=== PATIENT | male | born 1965 | race Caucasian/White ===

== ENCOUNTER 2016-03-10 | Emergency (ER) | payer OTHER ==
--- NOTE | 2016-03-10 16:10 | ED ---
Recheck HPI - General Chief Complaint: Medical Clearance Stated Complaint: med refill Time Seen by Provider: 03/10/16 15:57 Source: patient Mode of arrival: ambulatory Limitations: no limitations - History of Present Illness Initial Comments: Patient is a 50-year-old male, patient of Dr. Cabrera in the outpatient setting with medical history significant for anxiety and bipolar. Patient presents to the emergency department with complaints of anxiety and heart palpitations at times. 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 Patient states he didn't take any medications while incarcerated. Patient states he's supposed to see Dr. Cabrera next week but needs something for anxiety until he can get in. Patient denies recent fevers, chills, nausea, vomiting, shortness of breath, chest pain, or abdominal pain. Patient states he just gets very anxious and his heart starts beating. MD Complaint: medication refill request - Related Data Home Medications Medication Instructions Recorded Confirmed Hydrocodone/Acetaminophen [[place] 1 tab PO TID PRN 01/07/16 01/07/16 10-325] Trihexyphenidyl [Artane] 2 mg PO BID 01/07/16 01/07/16 Previous Rx's Medication Instructions Recorded Thiothixene [Navane] 2 mg PO BID #60 cap 11/19/13 ALPRAZolam [Xanax] 0.5 mg PO BID #7 tab 01/07/16 ALPRAZolam [Xanax] 0.5 mg PO BID PRN #12 tablet 03/10/16 Allergies Allergy/AdvReac Type Severity Reaction Status Date / Time haloperidol [From Haldol] Allergy Unknown Verified 03/10/16 15:56 haloperidol lactate Allergy Unknown Verified 03/10/16 15:56 [From Haldol] Review of Systems ROS Statement: Those systems with pertinent positive or pertinent negative responses have been documented in the HPI. ROS Other: All systems not noted in ROS Statement are negative. Past Medical History Past Medical History: Hypertension Additional Past Medical History / Comment(s): anxiety and bipolar disorder History of Any Multi-Drug Resistant Organisms: None Reported Past Surgical History: No Surgical Hx Reported Past Anesthesia/Blood Transfusion Reactions: No Reported Reaction Past Psychological History: Anxiety, Bipolar Smoking Status: Current every day smoker Past Alcohol Use History: Abuse, Daily Past Drug Use History: None Reported - Past Family History Mother Family Medical History: Myocardial Infarction ([place]) Additional Family Medical History / Comment(s): at age 54 Father History Unknown: Yes Family Medical History: Pneumonia General Exam Limitations: no limitations General appearance: alert, in no apparent distress Head exam: Present: atraumatic, normocephalic, normal inspection Eye exam: Present: normal appearance ENT exam: Present: normal exam, mucous membranes moist Neck exam: Present: normal inspection, full ROM. Absent: tenderness, meningismus, lymphadenopathy Respiratory exam: Present: normal lung sounds bilaterally. Absent: respiratory distress, wheezes, rales, rhonchi, stridor Cardiovascular Exam: Present: regular rate, tachycardia, normal heart sounds. Absent: systolic murmur, diastolic murmur, rubs, gallop, clicks GI/Abdominal exam: Present: soft, normal bowel sounds. Absent: distended, tenderness, guarding, rebound, rigid Extremities exam: Present: normal inspection Neurological exam: Present: alert, oriented X3, CN II-XII intact Psychiatric exam: Present: normal affect, normal mood Skin exam: Present: warm, dry, intact, normal color. Absent: rash Course Vital Signs 03/10/16 15:54 Temperature 97.8 F Pulse Rate 108 H Respiratory 20 Rate Blood Pressure 116/79 O2 Sat by Pulse 100 Oximetry Medical Decision Making - Medical Decision Making Patient is a 50-year-old male with established history of anxiety presenting for Xanax refill. Patient prescribed 12 pills of Xanax after reviewing case with Dr. Kebede. Instructed to follow-up with Dr. Cabrera next week. Discharge instructions and return parameters reviewed. Disposition Clinical Impression: Anxiety, Medication refill Disposition: HOME SELF-CARE Condition: Good Instructions: Anxiety (ED) Additional Instructions: Please follow-up with Dr. Cabrera next week for follow-up. Return to the emergency department if symptoms do not improve or get worse. Prescriptions: ALPRAZolam [Xanax] 0.5 mg PO BID PRN #12 tablet PRN Reason: Anxiety Referrals: Alonzo Cabrera MD [Primary Care Provider] - 1-2 days Time of Disposition: 16:12
== END 2016-03-10 16:25 | disposition home or self-care (01) ==
CPT/HCPCS: 99281

== ENCOUNTER 2016-03-16 | Emergency (ER) | payer OTHER ==
--- NOTE | 2016-03-16 13:30 | ED ---
Recheck HPI - General Chief Complaint: Recheck/Abnormal Lab/Rx Stated Complaint: med refill Time Seen by Provider: 03/16/16 13:14 Source: patient, EMS, RN notes reviewed Mode of arrival: EMS Limitations: no limitations - History of Present Illness Initial Comments: Patient is a 50-year-old male presenting to the [facility] stating that he needs a refill of his high blood pressure and bipolar medications. Patient reports that he has been taking lisinopril 20 mg in the morning for the past 5+ years. Patient also reports that he has been taking [place] Vis[place] for his bipolar diagnosis for the past 30 years. Patient reports that he recently was out of [facility] and has not been able to take his medications for the past 6 days. Patient does state that he receives refills of these medications by Dr. ace. Patient reports that he is currently working on receiving his ID in order to be able to see Dr. Cabrera again. Patient states that being off of a antipsychotic medication he has had increased racing thoughts. He denies any suicidal or homicidal ideations. Patient also reports that he does hear voices. Patient states that he does see a psychiatrist as well.Patient denies any recent fever, chills, shortness of breath, chest pain, back pain, abdominal pain, nausea vomiting, numbness or tingling, dysuria or hematuria, constipation or diarrhea, headaches or visual changes, or any other current symptoms - Related Data Home Medications Medication Instructions Recorded Confirmed Hydrocodone/Acetaminophen [[place] 1 tab PO TID PRN 01/07/16 03/16/16 10-325] Trihexyphenidyl [Artane] 2 mg PO BID 01/07/16 03/16/16 Lisinopril [Zestril] 20 mg PO DAILY 03/16/16 03/16/16 Previous Rx's Medication Instructions Recorded Thiothixene [Navane] 2 mg PO BID #60 cap 11/19/13 ALPRAZolam [Xanax] 0.5 mg PO BID #7 tab 01/07/16 ALPRAZolam [Xanax] 0.5 mg PO BID PRN #12 tablet 03/10/16 Lisinopril [Zestril] 20 mg PO DAILY #20 tab 03/16/16 Thiothixene [Navane] 2 mg PO BID #20 capsule 03/16/16 Allergies Allergy/AdvReac Type Severity Reaction Status Date / Time haloperidol [From Haldol] Allergy Unknown Verified 03/16/16 13:16 haloperidol lactate Allergy Unknown Verified 03/16/16 13:16 [From Haldol] Review of Systems ROS Statement: Those systems with pertinent positive or pertinent negative responses have been documented in the HPI. ROS Other: All systems not noted in ROS Statement are negative. Past Medical History Past Medical History: Hypertension Additional Past Medical History / Comment(s): anxiety and bipolar disorder History of Any Multi-Drug Resistant Organisms: None Reported Past Surgical History: No Surgical Hx Reported Past Anesthesia/Blood Transfusion Reactions: No Reported Reaction Past Psychological History: Anxiety, Bipolar Smoking Status: Current every day smoker Past Alcohol Use History: Abuse, Daily Past Drug Use History: None Reported - Past Family History Mother Family Medical History: Myocardial Infarction ([place]) Additional Family Medical History / Comment(s): at age 54 Father History Unknown: Yes Family Medical History: Pneumonia General Exam - General Exam Comments Initial Comments: Patient is a pleasant 50-year-old male. He does not appear to be in any acute distress. Limitations: no limitations General appearance: alert, in no apparent distress Head exam: Present: atraumatic, normocephalic, normal inspection Eye exam: Present: normal appearance, PERRL, EOMI. Absent: scleral icterus, conjunctival injection, periorbital swelling ENT exam: Present: normal exam, mucous membranes moist Neck exam: Present: normal inspection. Absent: tenderness, meningismus, lymphadenopathy Respiratory exam: Present: normal lung sounds bilaterally Cardiovascular Exam: Present: regular rate, normal rhythm, normal heart sounds. Absent: systolic murmur, diastolic murmur, rubs, gallop, clicks GI/Abdominal exam: Present: soft, normal bowel sounds. Absent: distended, tenderness, guarding, rebound, rigid Extremities exam: Present: normal inspection, full ROM, normal capillary refill. Absent: tenderness, pedal edema, joint swelling, calf tenderness Back exam: Present: normal inspection Neurological exam: Present: alert, oriented X3, CN II-XII intact Psychiatric exam: Present: normal affect, normal mood, other (She denies any suicidal or homicidal ideations. Patient does report that he out his bipolar medication he does have some recent thoughts.) Skin exam: Present: warm, dry, intact, normal color. Absent: rash Course Vital Signs 03/16/16 03/16/16 13:06 13:20 Temperature 98.0 F Pulse Rate 98 Pulse Rate [ 98 Right Radial] Respiratory 20 Rate Blood Pressure 151/95 O2 Sat by Pulse 97 Oximetry Medical Decision Making - Medical Decision Making Patient is a 50-year-old male with a chief complaint of needing a medication refill for his hypertension and bipolar medications. Patient reports that he takes lisinopril 20 mg once a day as well as taking thiothixene 2 mg twice a day. Patient proceed as received these medications from his primary care Dr. Dr. Cabrera. He states he recently got out of [facility] and he has not been able take his meds for the past 6 days. He states he's noted his blood pressure has been elevated and without his bipolar medications he's had racing thoughts. Patient denies any suicidal or homicidal ideations. Patient will be given a short prescription for thiothixene and lisinopril.. Patient has been advised to follow up with primary care soon as possible. Patient understands treatment plan will comply. Return parameters were discussed. Disposition Clinical Impression: Medication refill, Hypertension, Schizoaffective disorder Disposition: HOME SELF-CARE Condition: Good Instructions: Medicine Refill (ED) Additional Instructions: Patient instructed to follow up with primary care provider in 1-2 weeks. any alarming signs or symptoms occur. Prescriptions: Lisinopril [Zestril] 20 mg PO DAILY #20 tab Thiothixene [Navane] 2 mg PO BID #20 capsule Referrals: Alonzo Cabrera MD [Primary Care Provider] - 1-2 days Time of Disposition: 13:29
== END 2016-03-16 13:32 | disposition home or self-care (01) ==
CPT/HCPCS: 99282

== ENCOUNTER 2016-04-03 09:42 | Emergency (ER) | payer OTHER ==
[2016-04-03 09:47] VITALS: BP 136/88; PULSE 99; RESP 18; TEMP 98.2
--- NOTE | 2016-04-03 10:06 | ED ---
General Adult HPI - General Chief complaint: Recheck/Abnormal Lab/Rx Stated complaint: Med refill Time Seen by Provider: 04/03/16 09:57 Source: patient, RN notes reviewed Mode of arrival: ambulatory Limitations: no limitations - History of Present Illness Initial comments: Patient is a 50-year-old male who presents emergency room today with chief complaint of needing medication refill. He states is been 2 days that is been out of his medications. He states is out of his thiothixene, lisinopril, Xanax. States she's tried to follow this family doctor. He states he lost his photo ID. He states he has a temporary deep does not have a photo his family doctor will not see him until he has a photo ID. Patient states it will take 2 weeks for photo ID to come in. He states been 2 days since about his medications. He denies any other complaints or associated symptoms. Patient denies any recent fever, chills, shortness of breath, chest pain, back pain, abdominal pain, nausea or vomiting, numbness or tingling, dysuria or hematuria, constipation or diarrhea, headaches or visual changes, or any other complaints. - Related Data Previous Rx's Medication Instructions Recorded Thiothixene [Navane] 2 mg PO BID #20 capsule 03/16/16 ALPRAZolam [Xanax] 0.5 mg PO TID PRN #30 tab 04/03/16 Lisinopril [Zestril] 20 mg PO DAILY #30 tab 04/03/16 Thiothixene [Navane] 2 mg PO BID #25 capsule 04/03/16 Allergies Allergy/AdvReac Type Severity Reaction Status Date / Time haloperidol [From Haldol] Allergy Unknown Verified 04/03/16 09:53 haloperidol lactate Allergy Unknown Verified 04/03/16 09:53 [From Haldol] Review of Systems ROS Statement: Those systems with pertinent positive or pertinent negative responses have been documented in the HPI. ROS Other: All systems not noted in ROS Statement are negative. Past Medical History Past Medical History: Hypertension Additional Past Medical History / Comment(s): anxiety and bipolar disorder History of Any Multi-Drug Resistant Organisms: None Reported Past Surgical History: No Surgical Hx Reported Past Anesthesia/Blood Transfusion Reactions: No Reported Reaction Past Psychological History: Anxiety, Bipolar Smoking Status: Current every day smoker Past Alcohol Use History: Abuse, Daily Past Drug Use History: None Reported - Past Family History Mother Family Medical History: Myocardial Infarction ([place]) Additional Family Medical History / Comment(s): at age 54 Father History Unknown: Yes Family Medical History: Pneumonia General Exam - General Exam Comments Initial Comments: General: The patient is awake and alert, in no distress, and does not appear acutely ill. Eye: Pupils are equal, round and reactive to light, extra-ocular movements are intact. No nystagmus. There is normal conjunctiva bilaterally. No signs of icterus. Ears, nose, mouth and throat: There are moist mucous membranes and no oral lesions. Neck: The neck is supple, there is no tenderness or JVD. Cardiovascular: There is a regular rate and rhythm. No murmur, rub or gallop is appreciated. Respiratory: Lungs are clear to auscultation, respirations are non-labored, breath sounds are equal. No wheezes, stridor, rales, or rhonchi. Musculoskeletal: Normal ROM, no tenderness. Strength 5/5. Sensation intact. Pulses equal bilaterally 2+. Neurological: A&O x 3. CN II-XII intact, There are no obvious motor or sensory deficits. Coordination appears grossly intact. Speech is normal. Skin: Skin is warm and dry and no rashes or lesions are noted. Psychiatric: Cooperative, appropriate mood & affect, normal judgment. Limitations: no limitations Course Vital Signs 04/03/16 09:44 Temperature 98.2 F Pulse Rate 99 Respiratory 18 Rate Blood Pressure 136/88 O2 Sat by Pulse 99 Oximetry Medical Decision Making - Medical Decision Making Patient will be given a short prescription for Xanax. He'll be given prescription for his thiothixene and lisinopril to cover for the next 2 weeks until he is able to follow-up with his family doctor. Disposition Clinical Impression: Medication refill Disposition: HOME SELF-CARE Condition: Good Instructions: Medicine Refill (ED) Additional Instructions: Please medications as prescribed and follow-up family doctor for further meds as discussed. Please return to emergency room if the symptoms increase or worsen or for any other concerns. Prescriptions: ALPRAZolam [Xanax] 0.5 mg PO TID PRN #30 tab PRN Reason: Anxiety Lisinopril [Zestril] 20 mg PO DAILY #30 tab Thiothixene [Navane] 2 mg PO BID #25 capsule Time of Disposition: 10:03
== END 2016-04-03 10:14 | disposition home or self-care (01) ==
LOC: EC 09:42
DX: Z76.0 Encounter for issue of repeat prescription (principal); Z79.899 Other long term (current) drug therapy; Z88.8 Allergy status to other drugs, medicaments and biological substances; I10 Essential (primary) hypertension; F31.9 Bipolar disorder, unspecified; F41.9 Anxiety disorder, unspecified; F17.200 Nicotine dependence, unspecified, uncomplicated
CPT/HCPCS: 99281

== ENCOUNTER 2016-04-27 09:43 | Emergency (ER) | payer OTHER ==
[2016-04-27 09:48] VITALS: BP 122/71; PULSE 102; RESP 20; TEMP 97.5
--- NOTE | 2016-04-27 10:20 | ED ---
General Adult HPI - General Chief complaint: Medical Clearance Stated complaint: med refill Time Seen by Provider: 04/27/16 09:50 Source: patient, RN notes reviewed Mode of arrival: ambulatory Limitations: no limitations - History of Present Illness Initial comments: 50-year-old male presents emergency department for medication refill. Patient has been out of his medications for a couple days. Patient states he has no appointment in [address] Cabrera. Patient states she's been on all his medications for several years. Patient denies any seizures. Patient denies a suicidal or homicidal thoughts. Patient offers no other complaints. - Related Data Previous Rx's Medication Instructions Recorded Thiothixene [Navane] 2 mg PO BID #20 capsule 03/16/16 ALPRAZolam [Xanax] 0.5 mg PO TID PRN #30 tab 04/03/16 Lisinopril [Zestril] 20 mg PO DAILY #30 tab 04/03/16 Thiothixene [Navane] 2 mg PO BID #25 capsule 04/03/16 ALPRAZolam [Xanax] 0.5 mg PO TID PRN #30 tablet 04/27/16 Lisinopril [Zestril] 20 mg PO DAILY #10 tab 04/27/16 Thiothixene [Navane] 2 mg PO BID #20 capsule 04/27/16 Allergies Allergy/AdvReac Type Severity Reaction Status Date / Time haloperidol [From Haldol] Allergy Unknown Verified 04/27/16 09:48 haloperidol lactate Allergy Unknown Verified 04/27/16 09:48 [From Haldol] Review of Systems ROS Statement: Those systems with pertinent positive or pertinent negative responses have been documented in the HPI. ROS Other: All systems not noted in ROS Statement are negative. Past Medical History Past Medical History: Hypertension Additional Past Medical History / Comment(s): anxiety and bipolar disorder History of Any Multi-Drug Resistant Organisms: None Reported Past Surgical History: No Surgical Hx Reported Past Anesthesia/Blood Transfusion Reactions: No Reported Reaction Past Psychological History: Anxiety, Bipolar Smoking Status: Current every day smoker Past Alcohol Use History: Abuse, Daily Past Drug Use History: None Reported - Past Family History Mother Family Medical History: Myocardial Infarction ([place]) Additional Family Medical History / Comment(s): at age 54 Father History Unknown: Yes Family Medical History: Pneumonia General Exam Limitations: no limitations General appearance: alert, in no apparent distress Head exam: Present: atraumatic, normocephalic, normal inspection Eye exam: Present: normal appearance, PERRL, EOMI. Absent: scleral icterus, conjunctival injection, periorbital swelling ENT exam: Present: normal exam, normal oropharynx, mucous membranes moist, TM's normal bilaterally Neck exam: Present: normal inspection. Absent: tenderness, meningismus, lymphadenopathy Respiratory exam: Present: normal lung sounds bilaterally. Absent: respiratory distress, wheezes, rales, rhonchi, stridor Cardiovascular Exam: Present: regular rate, normal rhythm, normal heart sounds. Absent: systolic murmur, diastolic murmur, rubs, gallop, clicks Psychiatric exam: Present: normal affect, normal mood. Absent: depressed Course Vital Signs 04/27/16 09:46 Temperature 97.5 F L Pulse Rate 102 H Respiratory 20 Rate Blood Pressure 122/71 O2 Sat by Pulse 99 Oximetry Disposition Clinical Impression: Medication refill, Anxiety, Bipolar 1 disorder Disposition: HOME SELF-CARE Condition: Stable Instructions: Anxiety (ED) Additional Instructions: Please return to the Emergency Department if symptoms worsen or any other concerns. Prescriptions: ALPRAZolam [Xanax] 0.5 mg PO TID PRN #30 tablet PRN Reason: Anxiety Lisinopril [Zestril] 20 mg PO DAILY #10 tab Thiothixene [Navane] 2 mg PO BID #20 capsule Time of Disposition: 10:20
== END 2016-04-27 10:26 | disposition home or self-care (01) ==
LOC: EC 09:43
DX: Z76.0 Encounter for issue of repeat prescription (principal); F41.9 Anxiety disorder, unspecified; F31.9 Bipolar disorder, unspecified; I10 Essential (primary) hypertension; F17.200 Nicotine dependence, unspecified, uncomplicated; Z79.899 Other long term (current) drug therapy; Z88.8 Allergy status to other drugs, medicaments and biological substances
CPT/HCPCS: 99281

== ENCOUNTER 2016-08-26 13:05 | Emergency (ER) | payer OTHER ==
[2016-08-26 13:12] VITALS: RESP 20
--- NOTE | 2016-08-26 14:49 | ED ---
ENT HPI - General Chief complaint: ENT Stated complaint: sore throat Time Seen by Provider: 08/26/16 14:27 Source: patient Mode of arrival: EMS Limitations: no limitations - History of Present Illness Initial comments: Patient is a 51-year-old male, patient of Dr. Cabrera in the outpatient setting, with a medical history significant for COPD, hypertension, chronic pain syndrome, anxiety, current nicotine dependence, and alcohol abuse. Patient presents to the emergency department with complaints of throat pain for 5 days. Patient states he is also out of his hydrocodone and Xanax. MD complaint: sore throat, difficulty swallowing (Patient states it hurts to swallow) Onset/Timin -: days(s) Severity: moderate Severity scale (1-10): 6 Quality: aching Consistency: constant Improves with: none Worsens with: swallowing Associated Symptoms: cough (Chronic), pain with swallowing, rhinorrhea - Related Data Home Medications Medication Instructions Recorded Confirmed HYDROcodone/APAP 10-325MG [[place] 1 tab PO Q6H PRN 08/26/16 08/26/16 10-325] Trihexyphenidyl [Artane] 2 mg PO BID 08/26/16 08/26/16 Previous Rx's Medication Instructions Recorded RX: Thiothixene [Navane] 2 mg PO BID #20 capsule 03/16/16 Lisinopril [Zestril] 20 mg PO DAILY #30 tab 04/03/16 RX: ALPRAZolam [Xanax] 0.5 mg PO TID PRN #30 tab 04/03/16 Allergies Allergy/AdvReac Type Severity Reaction Status Date / Time haloperidol [From Haldol] Allergy Unknown Verified 08/26/16 13:51 haloperidol lactate Allergy Unknown Verified 08/26/16 13:51 [From Haldol] Review of Systems ROS Statement: Those systems with pertinent positive or pertinent negative responses have been documented in the HPI. ROS Other: All systems not noted in ROS Statement are negative. Past Medical History Past Medical History: Hypertension Additional Past Medical History / Comment(s): anxiety and bipolar disorder History of Any Multi-Drug Resistant Organisms: None Reported Past Surgical History: No Surgical Hx Reported Past Anesthesia/Blood Transfusion Reactions: No Reported Reaction Past Psychological History: Anxiety, Bipolar Smoking Status: Current every day smoker Past Alcohol Use History: Abuse, Daily Past Drug Use History: None Reported - Past Family History Mother Family Medical History: Myocardial Infarction ([place]) Additional Family Medical History / Comment(s): at age 54 Father History Unknown: Yes Family Medical History: Pneumonia General Exam - General Exam Comments Initial Comments: Pharyngitis suspect viral. Strep screen negative. Patient educated on conservative measures. Patient instructed to follow-up with primary care physician for med refill. Patient agrees to treatment plan. Discharge instructions and return parameters reviewed. Limitations: no limitations General appearance: alert, in no apparent distress Head exam: Present: atraumatic, normocephalic, normal inspection Eye exam: Present: normal appearance, PERRL, EOMI. Absent: scleral icterus, conjunctival injection, nystagmus, periorbital swelling, periorbital tenderness ENT exam: Present: normal exam, mucous membranes moist, TM's normal bilaterally , normal external ear exam Expanded Mouth exam: Present: normal external inspection, tongue normal. Absent: drooling, trismus Throat exam: normal inspection, other (Minimal erythema to posterior pharynx). negative: tonsillar erythema, tonsillomegaly, tonsillar exudate, R peritonsillar mass, L peritonsillar mass Neck exam: Present: normal inspection, tenderness, full ROM, lymphadenopathy Respiratory exam: Present: normal lung sounds bilaterally. Absent: respiratory distress, wheezes, rales, rhonchi, stridor Cardiovascular Exam: Present: regular rate, tachycardia, normal heart sounds. Absent: systolic murmur, diastolic murmur, rubs, gallop, clicks GI/Abdominal exam: Present: soft, normal bowel sounds. Absent: distended Extremities exam: Present: normal inspection, full ROM, normal capillary refill. Absent: tenderness, pedal edema, joint swelling, calf tenderness Neurological exam: Present: alert, oriented X3, normal gait, other (No focal deficits noted) Psychiatric exam: Present: normal affect, normal mood Skin exam: Present: warm, dry, intact, normal color Course Vital Signs 08/26/16 13:10 Temperature 97.9 F Pulse Rate 105 H Respiratory 20 Rate Blood Pressure 142/86 O2 Sat by Pulse 100 Oximetry Medical Decision Making - Lab Data Lab Results 08/26/16 Range/Units 14:40 Group A Strep Rapid Negative (Negative) Disposition Clinical Impression: Pharyngitis Disposition: HOME SELF-CARE Condition: Good Instructions: Pharyngitis (ED) Additional Instructions: Continue soft and cold foods. Continue Tylenol or Motrin for pain. Continue throat lozenges and salt water gargles. Follow-up with primary care physician next 24-48 hours. Please return to the emergency department with any new or worsening symptoms. Referrals: Alonzo Cabrera MD [Primary Care Provider] - 1-2 days Time of Disposition: 15:33
[2016-08-26 15:48] VITALS: BP 148/68; PULSE 97; TEMP 98
== END 2016-08-26 15:46 | disposition home or self-care (01) ==
LOC: EC 13:05
DX: J02.9 Acute pharyngitis, unspecified (principal); F17.200 Nicotine dependence, unspecified, uncomplicated; Z88.8 Allergy status to other drugs, medicaments and biological substances; Z79.899 Other long term (current) drug therapy
CPT/HCPCS: 87081; 87430; 99283

== ENCOUNTER 2016-09-12 16:03 | Emergency (ER) | payer MEDICAID, OTHER ==
[2016-09-12 16:16] VITALS: BP 134/97; PULSE 119; RESP 18; TEMP 98.5
[2016-09-12] MEDS ORDERED: THIOTHIXENE 1 MG CAP PO STA (16:54)
--- NOTE | 2016-09-12 16:59 | ED ---
General Adult HPI - General Chief complaint: Psychiatric Symptoms Stated complaint: Mental Health Time Seen by Provider: 09/12/16 16:09 Source: patient, EMS, RN notes reviewed, old records reviewed Mode of arrival: EMS Limitations: no limitations - History of Present Illness Initial comments: Chief complaint history of present illness a 51-year-old male history of bipolar disorder. States he lost is not vein requesting 20 tablets 1 twice a day until his refills become available in 10 days. - Related Data Home Medications Medication Instructions Recorded Confirmed HYDROcodone/APAP 10-325MG [[place] 1 tab PO Q6H PRN 08/26/16 08/26/16 10-325] Trihexyphenidyl [Artane] 2 mg PO BID 08/26/16 08/26/16 Previous Rx's Medication Instructions Recorded Thiothixene [Navane] 2 mg PO BID #20 capsule 03/16/16 ALPRAZolam [Xanax] 0.5 mg PO TID PRN #30 tab 04/03/16 Lisinopril [Zestril] 20 mg PO DAILY #30 tab 04/03/16 Thiothixene [Navane] 2 mg PO BID #20 capsule 09/12/16 Allergies Allergy/AdvReac Type Severity Reaction Status Date / Time haloperidol [From Haldol] Allergy Unknown Verified 08/26/16 13:51 Review of Systems ROS Statement: Those systems with pertinent positive or pertinent negative responses have been documented in the HPI. No other complaints. Not suicidal and not homicidal. The patient does admit to drinking alcohol no other complaints. Past medical problems bipolar disorder. ALLERGIES Haldol. ROS Other: All systems not noted in ROS Statement are negative. Past Medical History Past Medical History: Hyperlipidemia, Hypertension Additional Past Medical History / Comment(s): anxiety and bipolar disorder History of Any Multi-Drug Resistant Organisms: None Reported Past Surgical History: No Surgical Hx Reported Past Anesthesia/Blood Transfusion Reactions: No Reported Reaction Past Psychological History: Anxiety, Bipolar Smoking Status: Current every day smoker Past Alcohol Use History: Abuse, Daily Past Drug Use History: None Reported - Past Family History Mother Family Medical History: Myocardial Infarction ([place]) Additional Family Medical History / Comment(s): at age 54 Father History Unknown: Yes Family Medical History: Pneumonia General Exam - General Exam Comments Initial Comments: Patient's vital signs are temperature 98.5 pulse 119 respiratory rate 18 pulse ox 134/87, /95% room air. has no complaints only requesting a temporary refill of his not vein 2 mg twice a day. Patient denying any aches pains fever, no psychological issues or problems denies suicidal thoughts. Limitations: no limitations Course Vital Signs 09/12/16 16:13 Temperature 98.5 F Pulse Rate 119 H Respiratory 18 Rate Blood Pressure 134/97 O2 Sat by Pulse 94 L Oximetry Disposition Clinical Impression: Encounter for medication refill Disposition: HOME SELF-CARE Condition: Fair Instructions: Bipolar Disorder (ED) Additional Instructions: Take medications as directed. Stop smoking stop drinking alcohol. Follow-up with family physician. Prescriptions: Thiothixene [Navane] 2 mg PO BID #20 capsule Referrals: Alonzo Cabrera MD [Primary Care Provider] - 1-2 days Time of Disposition: 16:58
== END 2016-09-12 18:49 | disposition home or self-care (01) ==
LOC: EC 16:03
DX: Z76.0 Encounter for issue of repeat prescription (principal); F31.9 Bipolar disorder, unspecified; F41.9 Anxiety disorder, unspecified; F17.200 Nicotine dependence, unspecified, uncomplicated; Z79.899 Other long term (current) drug therapy; Z88.8 Allergy status to other drugs, medicaments and biological substances
CPT/HCPCS: 82075; 99284

== ENCOUNTER 2016-10-08 14:20 | Emergency (ER) | payer OTHER ==
[2016-10-08 14:36] VITALS: RESP 18
--- NOTE | 2016-10-08 14:42 | ED ---
Fall HPI - General Stated Complaint: Fall Time Seen by Provider: 10/08/16 14:22 Source: patient, EMS Mode of arrival: EMS Limitations: no limitations - History of Present Illness Initial Comments: 51-year-old male presents emergency department via EMS chief complaints alcohol intoxication, facial injury. Bystanders did see the patient fall several times and his face on the concrete. He states he was staggering significantly before and after the injury. Patient states his tetanus is up-to-date approximately 3 years ago. Patient states he has no headache no neck pain. The c-collar. Patient denies any complaints of arm pain, leg pain or any back pain. Patient states he did drink alcohol today but reports that he does not drink alcohol regular basis. We have a history of chronic alcohol abuse here. Patient states he has no dental injury doesn't attempt blood in his mouth unsure why. - Related Data Home Medications Medication Instructions Recorded Confirmed HYDROcodone/APAP 10-325MG [[place] 1 tab PO Q6H PRN 08/26/16 10/08/16 10-325] Trihexyphenidyl [Artane] 2 mg PO BID 08/26/16 10/08/16 Atorvastatin Calcium [Lipitor] 40 mg PO DAILY 10/08/16 10/08/16 Cholecalciferol [Vitamin D3] 1,000 unit PO DAILY 10/08/16 10/08/16 Previous Rx's Medication Instructions Recorded Thiothixene [Navane] 2 mg PO BID #20 capsule 03/16/16 ALPRAZolam [Xanax] 0.5 mg PO TID PRN #30 tab 04/03/16 Lisinopril [Zestril] 20 mg PO DAILY #30 tab 04/03/16 Allergies Allergy/AdvReac Type Severity Reaction Status Date / Time haloperidol [From Haldol] Allergy Unknown Verified 10/08/16 14:43 Review of Systems ROS Statement: Those systems with pertinent positive or pertinent negative responses have been documented in the HPI. ROS Other: All systems not noted in ROS Statement are negative. Past Medical History Past Medical History: Hyperlipidemia, Hypertension Additional Past Medical History / Comment(s): anxiety and bipolar disorder History of Any Multi-Drug Resistant Organisms: None Reported Past Surgical History: No Surgical Hx Reported Past Anesthesia/Blood Transfusion Reactions: No Reported Reaction Past Psychological History: Anxiety, Bipolar, Schizophrenia Smoking Status: Current every day smoker Past Alcohol Use History: Abuse, Daily Past Drug Use History: None Reported - Past Family History Mother Family Medical History: Myocardial Infarction ([place]) Additional Family Medical History / Comment(s): at age 54 Father History Unknown: Yes Family Medical History: Pneumonia General Exam Limitations: no limitations General appearance: alert, in no apparent distress Head exam: Present: atraumatic, normocephalic, normal inspection Eye exam: Present: normal appearance, PERRL, EOMI, periorbital swelling ( Moderate right with multiple abrasions), periorbital tenderness (Mild right- sided). Absent: scleral icterus, conjunctival injection Pupils: Present: normal accommodation ENT exam: Present: normal exam, normal oropharynx, mucous membranes moist, TM's normal bilaterally, normal external ear exam Neck exam: Present: normal inspection, full ROM. Absent: tenderness, meningismus, lymphadenopathy Respiratory exam: Present: normal lung sounds bilaterally. Absent: respiratory distress, wheezes, rales, rhonchi, stridor, chest wall tenderness Cardiovascular Exam: Present: normal rhythm, tachycardia, normal heart sounds. Absent: systolic murmur, diastolic murmur, rubs, gallop, clicks GI/Abdominal exam: Present: soft, normal bowel sounds. Absent: distended, tenderness, guarding, rebound, rigid Extremities exam: Present: other (Right shoulder is a large abrasion noted with some ecchymosis patient is minimally tender and has full range of motion remaining right upper extremity within normal limits, left and lower extremity no abrasions or range of motion nontender) Back exam: Present: full ROM. Absent: tenderness, muscle spasm, paraspinal tenderness, vertebral tenderness Neurological exam: Present: alert, oriented X3, CN II-XII intact, reflexes normal. Absent: motor sensory deficit Skin exam: Present: warm, dry, intact, normal color, abrasion (Multiple abrasions noted on the face and the right periorbital region, upper lip, left cheek). Absent: rash Course Vital Signs 10/08/16 14:24 Temperature 98.4 F Pulse Rate 115 H Respiratory 18 Rate Blood Pressure 129/81 O2 Sat by Pulse 97 Oximetry Medical Decision Making - Medical Decision Making 51-year-old male presents emergency department for fall, facial injury and alcohol intoxication. Patient CT of his facial bones, brain and cervical spine do not reveal any acute fractures or intracranial bleed. Patient states for x- ray does not show any fractures. Patient will be picked up by family this time and discharged with there care. Disposition Clinical Impression: Alcohol intoxication, Fall, Multiple abrasions, Facial hematoma, Head injury Disposition: HOME SELF-CARE Condition: Stable Instructions: Head Injury (ED), Abrasion (ED) Additional Instructions: Please return to the Emergency Department if symptoms worsen or any other concerns. Referrals: Alonzo Cabrera MD [Primary Care Provider] - 1-2 days Time of Disposition: 15:35
--- NOTE | 2016-10-08 15:01 | XR ---
EXAMINATION TYPE: XR shoulder complete RT DATE OF EXAM: 10/08/2016 COMPARISON: NONE HISTORY: Pain TECHNIQUE: Three views are submitted. FINDINGS: The osseous structures are intact. There is no acute fracture or dislocation. The AC joint is narro wed secondary to arthropathy. IMPRESSION: 1. No acute process.
--- NOTE | 2016-10-08 15:19 | CT ---
EXAMINATION TYPE: CT facial bones wo con DATE OF EXAM: 10/08/2016 COMPARISON: CT facial bones dated 12/30/2013. CT brain and C-spine dated 11/08/2015. HISTORY: Fall CT DLP: 607.87 mGycm Automated exposure control for dose reduction was used. TECHNIQUE: CT scan of the sinuses is performed without contrast, axial images are obtained, coronal r eformatted images are also reviewed. FINDINGS: Premaxillary soft tissue swelling is seen on the left at the level of the maxillary spine. The maxillary spine is intact, slightly deviated rightward but similar to the prior exam which may be result of prior injury. The nasal septum is deviated to the left with a nasal bone spur. Nasal septu m and nasal bone are also intact. Left frontal scalp hematoma measures 6.1 mm in thickness. The paranasal sinuses including the frontal , ethmoid, sphenoid, and maxillary sinuses bilaterally are well-aerated without abnormal opacificatio n. The ostiomeatal complex is patent bilaterally on the coronal images. Mandibular condyles are loca tamiko within the mandibular fossa. Visualized portion of mastoid air cells show no abnormal opacification. The globes are intact bilate rally. There is no evidence of lens dislocation. IMPRESSION: 1. No evidence of acute facial bone fracture. 2. Premaxillary soft tissue swelling on the left. 3. Left frontal scalp hematoma measuring 6.1 mm in thickness.
--- NOTE | 2016-10-08 15:20 | CT ---
EXAMINATION TYPE: CT brain cspine wo con DATE OF EXAM: 10/08/2016 COMPARISON: Previous exam 11/08/2015 HISTORY: Fall CT DLP: 1755.30 mGycm Automated exposure control for dose reduction was used. TECHNIQUE: CT scan of the head and cervical spine are performed without contrast. FINDINGS: There is no acute intracranial hemorrhage, mass effect, or midline shift identified. The ventricles and sulci are within normal limits in size. Left frontal cephalohematoma is present, the re is ecchymosis or edema present about the lateral orbit bilaterally corresponding to patient's inju ry. The globes are intact and the visualized sinuses are clear. I question some periventricular deep white matter low-attenuation as on previous exam. Cervical spine is visualized in its entirety from C1 through upper thoracic levels and demonstrates s atisfactory alignment without evidence of acute fracture or dislocation. Prevertebral soft tissue ap pears within normal limits. Lung apices show emphysematous change as on prior exam The C1-C2 articul ation is unremarkable. Multilevel foraminal encroachment again noted. IMPRESSION: 1. There is no acute fracture or dislocation evident in the cervical spine. Exam is stable. 2. No acute intracranial hemorrhage, mass effect, or midline shift is seen. Soft tissue injuries.
[2016-10-08 15:41] VITALS: BP 117/80; PULSE 112; TEMP 98
== END 2016-10-08 16:11 | disposition home or self-care (01) ==
LOC: EC 14:20
DX: S40.011A Contusion of right shoulder, initial encounter (principal); S00.211A Abrasion of right eyelid and periocular area, initial encounter; S00.511A Abrasion of lip, initial encounter; S00.81XA Abrasion of other part of head, initial encounter; F10.229 Alcohol dependence with intoxication, unspecified; E78.5 Hyperlipidemia, unspecified; I10 Essential (primary) hypertension; F17.200 Nicotine dependence, unspecified, uncomplicated; Z88.8 Allergy status to other drugs, medicaments and biological substances; Z79.899 Other long term (current) drug therapy; W01.198A Fall on same level from slipping, tripping and stumbling with subsequent striking against other object, initial encounter; Y93.01 Activity, walking, marching and hiking; Y92.89 Other specified places as the place of occurrence of the external cause
CPT/HCPCS: 70450; 70486; 72125; 82075; 99284

== ENCOUNTER 2017-07-24 11:19 | Emergency (ER) | payer OTHER ==
[2017-07-24 11:25] VITALS: BP 133/83; PULSE 120; RESP 18; TEMP 97.1
[2017-07-24] MEDS ORDERED: THIOTHIXENE 1 MG CAP PO STA (11:34)
--- NOTE | 2017-07-24 11:40 | ED ---
General Adult HPI - General Chief complaint: Recheck/Abnormal Lab/Rx Stated complaint: Rash Time Seen by Provider: 07/24/17 11:20 Source: patient, RN notes reviewed Mode of arrival: ambulatory Limitations: no limitations - History of Present Illness Initial comments: This is a 52-year-old male who states he has been out of his thiothixene for 6 days and he would like one dose today because he can get his prescription filled tomorrow and pick it up. Patient also is here because he has a rash on his legs and arms and a little bit on his abdomen which is extremely itchy and he states he's had this ever since he left [facility]. Patient has excoriated all areas that itch source difficult to make out what the initial rash was. Patient denies any fever chills. Patient denies any area of pain. Patient denies any erythematous areas. Patient denies any fevers. - Related Data Home Medications Medication Instructions Recorded Confirmed HYDROcodone/APAP 10-325MG [[place] 1 tab PO Q6H PRN 08/26/16 10/08/16 10-325] Trihexyphenidyl [Artane] 2 mg PO BID 08/26/16 10/08/16 Atorvastatin Calcium [Lipitor] 40 mg PO DAILY 10/08/16 10/08/16 Cholecalciferol [Vitamin D3] 1,000 unit PO DAILY 10/08/16 10/08/16 Previous Rx's Medication Instructions Recorded Thiothixene [Navane] 2 mg PO BID #20 capsule 03/16/16 ALPRAZolam [Xanax] 0.5 mg PO TID PRN #30 tab 04/03/16 Lisinopril [Zestril] 20 mg PO DAILY #30 tab 04/03/16 Permethrin 5% Cream [Elimite] 1 applic TOPICAL ONCE 1 Days 07/24/17 cream..g. predniSONE 40 mg PO DAILY #8 tab 07/24/17 Allergies Allergy/AdvReac Type Severity Reaction Status Date / Time haloperidol [From Haldol] Allergy Unknown Verified 07/24/17 11:25 Review of Systems ROS Statement: Those systems with pertinent positive or pertinent negative responses have been documented in the HPI. ROS Other: All systems not noted in ROS Statement are negative. Past Medical History Past Medical History: Hyperlipidemia, Hypertension Additional Past Medical History / Comment(s): anxiety and bipolar disorder History of Any Multi-Drug Resistant Organisms: None Reported Past Surgical History: No Surgical Hx Reported Past Anesthesia/Blood Transfusion Reactions: No Reported Reaction Past Psychological History: Anxiety, Bipolar, Schizophrenia Smoking Status: Current every day smoker Past Alcohol Use History: Abuse, Daily Past Drug Use History: None Reported - Past Family History Mother Family Medical History: Myocardial Infarction ([place]) Additional Family Medical History / Comment(s): at age 54 Father History Unknown: Yes Family Medical History: Pneumonia General Exam - General Exam Comments Initial Comments: GENERAL: Patient is well-developed and well-nourished. Patient is nontoxic and well- hydrated and is in mild distress. ENT: Neck is soft and supple. No significant lymphadenopathy is noted. Oropharynx is clear. Moist mucous membranes. Neck has full range of motion without eliciting any pain. EYES: The sclera were anicteric and conjunctiva were pink and moist. Extraocular movements were intact and pupils were equal round and reactive to light. Eyelids were unremarkable. PULMONARY: Unlabored respirations. Good breath sounds bilaterally. No audible rales rhonchi or wheezing was noted. CARDIOVASCULAR: There is a regular rate and rhythm without any murmurs gallops or rubs. Femoral pulses are equal bilaterally SKIN: Patient has multiple excoriated lesions on his legs and forearms and posterior aspect of his hands so it is difficult to tell what the rash initially look like. Patient states is extremely itchy NEUROLOGIC: Patient is alert and oriented x3. Cranial nerves II through XII are grossly intact. Motor and sensory are also intact. Normal speech, volume and content. Symmetrical smile. MUSCULOSKELETAL: Normal extremities with adequate strength and full range of motion. No lower extremity swelling or edema. No calf tenderness. LYMPHATICS: No significant lymphadenopathy is noted PSYCHIATRIC: Normal psychiatric evaluation. Limitations: no limitations Course Vital Signs 07/24/17 11:21 Temperature 97.1 F L Pulse Rate 120 H Respiratory 18 Rate Blood Pressure 133/83 O2 Sat by Pulse 98 Oximetry Disposition Clinical Impression: Medication administered, Scabies Disposition: HOME SELF-CARE Condition: Good Instructions: Scabies (ED) Prescriptions: Permethrin 5% Cream [Elimite] 1 applic TOPICAL ONCE 1 Days cream..g. predniSONE 40 mg PO DAILY #8 tab Is patient prescribed a controlled substance at d/c from ED?: No Referrals: Alonzo Cabrera MD [Primary Care Provider] - 1-2 days Time of Disposition: 11:38
== END 2017-07-24 12:09 | disposition home or self-care (01) ==
LOC: EC 11:19
DX: B86 Scabies (principal); E78.5 Hyperlipidemia, unspecified; I10 Essential (primary) hypertension; F17.200 Nicotine dependence, unspecified, uncomplicated; Z79.899 Other long term (current) drug therapy; Z88.8 Allergy status to other drugs, medicaments and biological substances
CPT/HCPCS: 99282

== ENCOUNTER 2020-05-18 17:38 | Emergency (ER) | payer OTHER ==
[2020-05-18 17:53] VITALS: BP 139/97; PULSE 108; RESP 18; TEMP 98.5
--- NOTE | 2020-05-18 19:27 | ED ---
General Adult HPI - General Chief complaint: Nausea/Vomiting/Diarrhea Stated complaint: SOB Time Seen by Provider: 05/18/20 18:00 Source: EMS Mode of arrival: EMS Limitations: no limitations - History of Present Illness Initial comments: 54-year-old male presenting today for chief complaint of shortness of breath loss of taste mild body aches concerned for Covid 19 infection. Patient states that he has had loss of taste and smell shortness of breath as well as cough for the past 3 days. Patient states he knows he has Covid 19 he states he has not t ested positive yet however. Patient denies any sharp chest pain with deep inspiration or leg swelling. He states it feels tight when he takes a deep breath. Patient states when he lies flat he has increased cough. Patient denies hemoptysis. He admits to chills but denies recording fevers. Patient denies abdominal pain, admit to nausea, occasional vomiting. No additional complaints. Pt afebrile but HR elevated on arrival he does not appear in distress. nor is he hypoxic. - Related Data Home Medications Medication Instructions Recorded Confirmed Atorvastatin Calcium [Lipitor] 40 mg PO DAILY 10/08/16 05/18/20 Ergocalciferol (Vitamin D2) 50,000 unit PO Q28D 01/31/18 05/18/20 [Drisdol] ALPRAZolam [Xanax] 1 mg PO BID PRN 05/18/20 05/18/20 Aspirin EC [Ecotrin Low Dose] 81 mg PO DAILY 05/18/20 05/18/20 HYDROcodone/APAP 5-325MG [[place] 1 tab PO TID PRN 05/18/20 05/18/20 5-325] Trihexyphenidyl [Artane] 2 mg PO BID 05/18/20 05/18/20 Previous Rx's Medication Instructions Recorded Thiothixene [Navane] 2 mg PO BID #20 capsule 03/16/16 lisinopriL [Zestril] 20 mg PO DAILY #30 tab 04/03/16 Allergies Allergy/AdvReac Type Severity Reaction Status Date / Time haloperidol [From Haldol] Allergy Unknown Verified 05/18/20 19:24 Review of Systems ROS Statement: Those systems with pertinent positive or pertinent negative responses have been documented in the HPI. ROS Other: All systems not noted in ROS Statement are negative. Past Medical History Past Medical History: Hyperlipidemia, Hypertension Additional Past Medical History / Comment(s): anxiety and bipolar disorder History of Any Multi-Drug Resistant Organisms: None Reported Past Surgical History: No Surgical Hx Reported Past Anesthesia/Blood Transfusion Reactions: No Reported Reaction Past Psychological History: Anxiety, Bipolar, Schizophrenia Smoking Status: Current every day smoker Past Alcohol Use History: Abuse, Daily, Heavy Past Drug Use History: None Reported - Past Family History Mother Family Medical History: Myocardial Infarction ([place]) Additional Family Medical History / Comment(s): at age 54 Father History Unknown: Yes Family Medical History: Pneumonia General Exam - General Exam Comments Initial Comments: General: The patient is awake and alert, in no distress Eye: +3 mm pupils are equal, round and reactive to light, extra-ocular movements are intact. No nystagmus. There is normal conjunctiva bilaterally. No signs of icterus. Ears, nose, mouth and throat: There are moist mucous membranes and no oral lesions. Neck: The neck is supple, there is no tenderness or JVD. Cardiovascular: There is a regular rate and rhythm. No murmur, rub or gallop is appreciated. Respiratory: Lungs are clear to auscultation, respirations are non-labored, breath sounds are equal. No wheezes, stridor, rales, or rhonchi. Gastrointestinal: Soft, non-distended, non-tender abdomen without masses or organomegaly noted. There is no rebound or guarding present. Musculoskeletal: Normal ROM, no tenderness. Strength 5/5. Sensation intact. Radial pulses equal bilaterally 2+. Neurological: A&O x 3. CN II-XII intact grossly, There are no obvious motor or sensory deficits. Coordination appears grossly intact. Speech is normal. Skin: Skin is warm and dry and no rashes or lesions are noted. Psychiatric: Cooperative, appropriate mood & affect, normal judgment. Limitations: no limitations Course Vital Signs 05/18/20 17:51 Temperature 98.5 F Pulse Rate 108 H Respiratory 18 Rate Blood Pressure 139/97 O2 Sat by Pulse 100 Oximetry Medical Decision Making - Medical Decision Making Refused work up and left states he felt better after "whatever EMS gave me" he states he just wanted to go home.Discussed risks including disability , [place], stroke, pulmonary embolism, pneumonia, sepsis. patient states "i feel fine and just wanna go". Pt appears of sound mind, he verbalized understanding and is able to recite risks back to me. Patient signed AMA forms in presence of nurse Gloria and left without taking his discharge paperwork. Disposition Clinical Impression: Dyspnea, Left against medical advice Disposition: Left Against Medical Advice Condition: Undetermined Instructions (If sedation given, give patient instructions): Coronavirus Disease 2019 (COVID-19) Is patient prescribed a controlled substance at d/c from ED?: No Referrals: Alonzo Cabrera MD [Primary Care Provider] - 1-2 days Time of Disposition: 19:27
== END 2020-05-18 19:10 | disposition left against medical advice (07) ==
LOC: EC 17:38
DX: R06.00 Dyspnea, unspecified (principal); E78.5 Hyperlipidemia, unspecified; I10 Essential (primary) hypertension; F20.9 Schizophrenia, unspecified; F17.200 Nicotine dependence, unspecified, uncomplicated; Z53.29 Procedure and treatment not carried out because of patient's decision for other reasons
CPT/HCPCS: 99283

== ENCOUNTER 2020-11-17 16:38 | Observation (INO) | payer OTHER ==
--- NOTE | 2020-11-17 18:01 | ED ---
General Adult HPI - General Chief complaint: Alcohol Stated complaint: ETOH Time Seen by Provider: 11/17/20 16:40 Source: patient Mode of arrival: EMS Limitations: no limitations - History of Present Illness Initial comments: Dictation was produced using [employer] dictation software. please excuse any grammatical, word or spelling errors. Chief Complaint: 55-year-old male presents emergency department for occult intoxication. History of Present Illness: Patient is a 55-year-old male he is a poor historian. Patient was brought here by police for alcohol intoxication. Patient states he fell down today. Police noticed he had an abrasion to his anterior forehead. Patient states he fell down. Patient has any pain. He states he had several alcoholic beverages today. He states he takes every day. The ROS documented in this emergency department record has been reviewed and confirmed by me. Those systems with pertinent positive or negative responses have been documented in the HPI. All other systems are other negative and/or noncontributory. PHYSICAL EXAM: General Impression: Alert and oriented x3, not in acute distress, inebriated HEENT: Abrasion to the anterior forehead, extra-ocular movements intact, pupils equal and reactive to light bilaterally, mucous membranes moist. Cardiovascular: Heart regular rate and rhythm Chest: Able to complete full sentences, no retractions, no tachypnea Abdomen: abdomen soft, non-tender, non-distended, no organomegaly Musculoskeletal: Pulses present and equal in all extremities, no peripheral edema Motor: no focal deficits noted Neurological: CN II-XII grossly intact, no focal motor or sensory deficits noted Skin: Intact with no visualized rashes Psych: Normal affect and mood ED course: 55-year-old male presents emergency department for alcohol intoxication. Vital signs upon arrival are within acceptable limits Return evaluation obtained. CBC and coag panel within acceptable limits. Nonstress leukocytosis. Metabolic panel shows mild gap acidosis. Alcohol is 35 8. Likely alcoholic ketoacidosis. Computed tomography scan of the head and C- spine shows no acute processes. Patient be admitted for EtOH intoxication. Case discussed with Dr. Cabrera who is willing to accept patient care. EKG interpretation: Ventricular rate 106, sinus tachycardia,. Interval 182, QRS 90, QTC 483. No IL prolongation, no QTC prolongation, no ST or T-wave changes noted. EKG compared to 11/08/2015 showing no changes. Overall, this EKG is unremarkable - Related Data Home Medications Medication Instructions Recorded Confirmed Atorvastatin Calcium [Lipitor] 40 mg PO DAILY 10/08/16 11/17/20 Ergocalciferol (Vitamin D2) 50,000 unit PO Q14D 01/31/18 11/17/20 [Drisdol] ALPRAZolam [Xanax] 1 mg PO BID PRN 05/18/20 11/17/20 Aspirin EC [Ecotrin Low Dose] 81 mg PO DAILY 05/18/20 11/17/20 HYDROcodone/APAP 5-325MG [[place] 1 tab PO TID PRN 05/18/20 11/17/20 5-325] Trihexyphenidyl [Artane] 2 mg PO BID 05/18/20 11/17/20 Albuterol Inhaler [Ventolin Hfa 1 - 2 puff INHALATION RT-QID PRN 11/17/20 11/17/20 Inhaler] Fluticasone Nasal [place] [Flonase 1 spr EA NOSTRIL DAILY PRN 11/17/20 11/17/20 Nasal [place]] Naloxone HCl [Narcan] 4 mg NASAL ONCE PRN 11/17/20 11/17/20 Previous Rx's Medication Instructions Recorded Thiothixene [Navane] 2 mg PO BID #20 capsule 03/16/16 lisinopriL [Zestril] 20 mg PO DAILY #30 tab 04/03/16 Allergies Allergy/AdvReac Type Severity Reaction Status Date / Time haloperidol [From Haldol] Allergy Unknown Verified 11/17/20 18:26 Review of Systems ROS Statement: Those systems with pertinent positive or pertinent negative responses have been documented in the HPI. ROS Other: All systems not noted in ROS Statement are negative. Past Medical History Past Medical History: Hyperlipidemia, Hypertension Additional Past Medical History / Comment(s): anxiety and bipolar disorder History of Any Multi-Drug Resistant Organisms: None Reported Past Surgical History: No Surgical Hx Reported Past Anesthesia/Blood Transfusion Reactions: No Reported Reaction Past Psychological History: Anxiety, Bipolar, Schizophrenia Smoking Status: Current every day smoker Past Alcohol Use History: Abuse, Daily, Heavy Past Drug Use History: None Reported - Past Family History Mother Family Medical History: Myocardial Infarction ([place]) Additional Family Medical History / Comment(s): at age 54 Father History Unknown: Yes Family Medical History: Pneumonia General Exam Limitations: no limitations Course Vital Signs 11/17/20 11/17/20 11/17/20 16:43 18:45 20:23 Temperature 98.6 F Pulse Rate 102 H Respiratory 19 17 18 Rate Blood Pressure 126/82 O2 Sat by Pulse 96 Oximetry Medical Decision Making - Lab Data Result diagrams: 11/17/20 19:23 11/17/20 19:23 Lab Results 11/17/20 11/17/20 11/17/20 Range/Units 19:23 19:23 19:23 WBC 13.9 H (3.8-10.6) k/uL RBC 4.34 (4.30-5.90) m/uL Hgb 14.2 (13.0-17.5) gm/dL Hct 40.5 (39.0-53.0) % MCV 93.4 (80.0-100.0) fL MCH 32.7 (25.0-35.0) pg MCHC 35.0 (31.0-37.0) g/dL RDW 12.0 (11.5-15.5) % Plt Count 278 (150-450) k/uL MPV 7.9 Neutrophils % 62 % Lymphocytes % 30 % Monocytes % 6 % Eosinophils % 1 % Basophils % 1 % Neutrophils # 8.6 H (1.3-7.7) k/uL Lymphocytes # 4.2 (1.0-4.8) k/uL Monocytes # 0.8 (0-1.0) k/uL Eosinophils # 0.1 (0-0.7) k/uL Basophils # 0.1 (0-0.2) k/uL PT 9.7 (9.0-12.0) sec INR 0.9 (<1.2) APTT 22.1 (22.0-30.0) sec Sodium 133 L (137-145) mmol/L Potassium 4.2 (3.5-5.1) mmol/L Chloride 97 L (98-107) mmol/L Carbon Dioxide 19 L (22-30) mmol/L Anion Gap 17 mmol/L BUN 10 (9-20) mg/dL Creatinine 0.53 L (0.66-1.25) mg/dL Est GFR (CKD-EPI)AfAm >90 (>60 ml/min/1.73 sqM) Est GFR (CKD-EPI)NonAf >90 (>60 ml/min/1.73 sqM) Glucose 111 H (74-99) mg/dL Calcium 8.7 (8.4-10.2) mg/dL Serum Alcohol 358 H* mg/dL Disposition Clinical Impression: Alcohol intoxication Disposition: ADMITTED IP TO THIS HOSP Condition: Fair Referrals: Alonzo Cabrera MD [Primary Care Provider] - 1-2 days
[2020-11-17 19:28] LABS: Basophils # (A) 0.1 k/uL (0-0.2); Basophils % (A) 1 %; Eosinophils # (A) 0.1 k/uL (0-0.7); Eosinophils % (A) 1 %; HCT 40.5 % (39.0-53.0); HGB 14.2 gm/dL (13.0-17.5); Lymphocytes # (A) 4.2 k/uL (1.0-4.8); Lymphocytes % (A) 30 %; MCH 32.7 pg (25.0-35.0); MCV 93.4 fL (80.0-100.0); Mean Platelet Volume 7.9; Monocytes # (A) 0.8 k/uL (0-1.0); Monocytes % (A) 6 %; Neutrophils # (A) 8.6 k/uL (1.3-7.7); Neutrophils % (A) 62 %; Platelet Count 278 k/uL (150-450); RBC 4.34 m/uL (4.30-5.90); WBC 13.9 k/uL (3.8-10.6)
[2020-11-17 19:40] LABS: African American GFR (CKD) >90 (>60 ml/min/1.73 sqM); Anion Gap 17 mmol/L; Blood Urea Nitrogen 10 mg/dL (9-20); Calcium 8.7 mg/dL (8.4-10.2); Carbon Dioxide 19 mmol/L (22-30); Chloride 97 mmol/L (98-107); Glucose 111 mg/dL (74-99); Non-African American GFR(CKD) >90 (>60 ml/min/1.73 sqM); Potassium 4.2 mmol/L (3.5-5.1); Sodium 133 mmol/L (137-145)
[2020-11-17 19:49] LABS: INR 0.9 (<1.2); Partial Thromboplastin Time 22.1 sec (22.0-30.0); Prothrombin Time 9.7 sec (9.0-12.0)
[2020-11-17 19:59] LABS: Alcohol 358 mg/dL
--- NOTE | 2020-11-17 20:38 | CT ---
EXAMINATION TYPE: CT brain lillyine wo con DATE OF EXAM: 11/17/2020 COMPARISON: 01/31/2018 HISTORY: etoh, fall, pain CT DLP: 1322.8 mGycm Automated exposure control for dose reduction was used. TECHNIQUE: CT scan of the head and cervical spine are performed without contrast. FINDINGS: There is no acute intracranial hemorrhage, mass effect, or midline shift identified. The v entricles and sulci are within normal limits in size. The globes are intact and the visualized sinus es are clear. Cervical spine is visualized in its entirety from C1 through upper thoracic levels and demonstrates s atisfactory alignment without evidence of acute fracture or dislocation. Prevertebral soft tissue ap pears within normal limits. The C1-C2 articulation is unremarkable. IMPRESSION: 1. There is no acute fracture or dislocation evident in the cervical spine. 2. No acute intracranial hemorrhage, mass effect, or midline shift is seen.
[2020-11-17] MEDS ORDERED: NALOXONE 0.4 MG/ML 1 ML VIAL IV PRN (20:46)
[2020-11-17] MEDS ORDERED: THIAMINE 100 MG/ML 2 ML VIAL IM STA (20:47)
[2020-11-17] MEDS ORDERED: LORazepam 2 MG/ML INJ IV PRN ×3 (20:47)
[2020-11-18] MEDS: THIAMINE 100 MG TAB PO SCH ×2 (07:19→16:54)
[2020-11-18] MEDS ORDERED: ALBUTEROL NEBULIZED 2.5 MG/3 ML INHALATION PRN (17:11)
--- NOTE | 2020-11-18 19:37 | HP ---
HISTORY AND PHYSICAL CHIEF COMPLAINT: Acute alcohol intoxication. HISTORY OF PRESENT ILLNESS: This is another admission for this 55-year-old white male who drinks heavily and smokes very heavily. He also has a history of hypertension, hyperlipidemia and COPD. He was brought to the emergency room intoxicated and was admitted. He also has a history of schizophrenia. REVIEW OF SYSTEMS: Unobtainable. He does not know why he is in the hospital or how he got here. Past medical history, family history, and personal and social histories demonstrate he is ALLERGIC TO HALDOL. He is on atorvastatin 40 once a day, fluticasone nasal spray, Proventil HFA, Vicodin p.r.n., 81 mg of aspirin, Xanax 1 mg twice a day, 2 mg twice a day, trihexyphenidyl 2 mg twice a day, vitamin D and lisinopril 20 mg once a day. He continues to smoke heavily. PHYSICAL EXAMINATION: Blood pressure is 136/88 with a pulse of 96. He is afebrile. In general he appeared to be somewhat disheveled. He is awake and alert and oriented. Head, ears, eyes, nose, mouth and throat were normal. Neck veins were not distended. Chest was clear to auscultation and percussion. Cardiac exam was normal. Abdomen was soft and nontender. Extremities were normal. He was not in DTs at this time. The patient is admitted to the hospital with the diagnoses: 1. Acute alcohol intoxication. 2. Chronic obstructive pulmonary disease. 3. Hypertension. 4. Schizophrenia. PLAN: 1. Bedrest. 2. IV fluids. 3. CIWA protocol. MMODL / IJN: [id number] /
[2020-11-18] MEDS: TRIHEXYPHENIDYL 2 MG TAB PO SCH (19:51)
[2020-11-18] MEDS: lisinopriL 20 MG TAB PO SCH (19:51)
[2020-11-18] MEDS: THIOTHIXENE 2 MG PO SCH (19:52)
--- NOTE | 2020-11-18 19:57 | PN ---
PROGRESS NOTE DATE OF SERVICE: 11/18/2020 CHIEF COMPLAINT: Acute alcohol intoxication and impending DTs. HISTORY OF PRESENT ILLNESS: This gentleman was fairly alert this morning and he is not tremulous. He denies diplopia. PHYSICAL EXAMINATION: NECK: Supple. Chest is clear. Cardiac exam is normal. Abdomen is soft, nontender. There is no strabismus. IMPRESSION: 1. Acute alcohol intoxication. 2. Impending DTs. 3. Chronic alcoholism. 4. Chronic obstructive pulmonary disease. 5. Hypertension. 6. Schizophrenia. PLAN: Continue to monitor his neurologic status and vital signs. MMODL / IJN: [id number] /
[2020-11-19] MEDS: THIAMINE 100 MG TAB PO SCH ×2 (10:11→17:03)
[2020-11-19] MEDS: TRIHEXYPHENIDYL 2 MG TAB PO SCH ×2 (10:11→20:42)
[2020-11-19] MEDS: lisinopriL 20 MG TAB PO SCH (10:12)
[2020-11-19] MEDS: THIOTHIXENE 2 MG PO SCH ×2 (10:13→20:43)
[2020-11-19 12:41] LABS: Basophils # (A) 0.1 k/uL (0-0.2); Basophils % (A) 1 %; Eosinophils # (A) 0.4 k/uL (0-0.7); Eosinophils % (A) 5 %; HCT 39.6 % (39.0-53.0); HGB 13.3 gm/dL (13.0-17.5); Lymphocytes # (A) 2.4 k/uL (1.0-4.8); Lymphocytes % (A) 30 %; MCH 31.3 pg (25.0-35.0); MCHC 33.5 g/dL (31.0-37.0); MCV 93.4 fL (80.0-100.0); Mean Platelet Volume 7.7; Monocytes # (A) 0.8 k/uL (0-1.0); Monocytes % (A) 10 %; Neutrophils # (A) 4.2 k/uL (1.3-7.7); Neutrophils % (A) 53 %; Platelet Count 235 k/uL (150-450); RBC 4.24 m/uL (4.30-5.90); RDW 11.8 % (11.5-15.5)
[2020-11-19 12:56] LABS: ALT 32 U/L (4-49); AST 34 U/L (17-59); African American GFR (CKD) >90 (>60 ml/min/1.73 sqM); Albumin 3.8 g/dL (3.5-5.0); Albumin/Globulin Ratio 1.2; Alkaline Phosphatase 72 U/L (38-126); Anion Gap 7 mmol/L; Blood Urea Nitrogen 10 mg/dL (9-20); Calcium 9.4 mg/dL (8.4-10.2); Carbon Dioxide 26 mmol/L (22-30); Chloride 104 mmol/L (98-107); Globulin 3.1 g/dL; Glucose 118 mg/dL (74-99); Non-African American GFR(CKD) >90 (>60 ml/min/1.73 sqM); Potassium 3.9 mmol/L (3.5-5.1); Sodium 137 mmol/L (137-145); Total Bilirubin 0.7 mg/dL (0.2-1.3); Total Protein 6.9 g/dL (6.3-8.2)
--- NOTE | 2020-11-19 17:16 | XR ---
EXAMINATION TYPE: XR chest 2V DATE OF EXAM: 11/19/2020 COMPARISON: 06/08/2013 HISTORY: Syncope TECHNIQUE: 2 views FINDINGS: Heart and mediastinum are normal. Lungs are clear. Diaphragm is normal. Bony thorax is inta ct. IMPRESSION: Normal chest. No change.
--- NOTE | 2020-11-19 18:00 | PN ---
PROGRESS NOTE CHIEF COMPLAINT: Acute alcohol intoxication, alcoholism and impending DTs with COPD. HISTORY OF PRESENT ILLNESS: This gentleman seems to be fairly stable and does not seem to have gone into DTs. PHYSICAL EXAMINATION: His chest is clear. Cardiac exam is normal. Abdomen is soft, nontender. IMPRESSION: 1. Acute alcohol intoxication. 2. Impending DTs. 3. Chronic alcoholism. 4. Chronic obstructive pulmonary disease. 5. Schizophrenia. PLAN: Repeat labs, increase activity and probably home in the next day or two. MMODL / IJN: [id number] /
[2020-11-19] MEDS: ONDANSETRON 4 MG TAB PO PRN (22:53)
[2020-11-20] MEDS: lisinopriL 20 MG TAB PO SCH (08:45)
[2020-11-20] MEDS: THIAMINE 100 MG TAB PO SCH ×2 (08:45→16:54)
[2020-11-20] MEDS: TRIHEXYPHENIDYL 2 MG TAB PO SCH ×2 (08:45→20:45)
[2020-11-20] MEDS: THIOTHIXENE 2 MG PO SCH ×2 (11:04→20:45)
--- NOTE | 2020-11-20 18:04 | PN ---
PROGRESS NOTE DATE OF SERVICE: 11/20/2020 CHIEF COMPLAINT: Acute alcohol intoxication and DTs. HISTORY OF PRESENT ILLNESS: This gentleman is a little bit better. He is more awake and alert. He has a slight tremor. He denies diplopia. He is still feeling slightly nauseated. PHYSICAL EXAMINATION: Chest is clear. Cardiac exam is normal. Abdomen is soft and nontender. Bowel sounds are present. Extremities: Normal. Neurologically he is intact. IMPRESSION: 1. Acute alcohol intoxication. 2. Chronic alcoholism. 3. Delirium tremens. 4. Nausea. PLAN: Slowly progress activity and diet and if his nausea disappears, he can probably go home tomorrow. MMODL / IJN: [id number] /
[2020-11-20] MEDS: ONDANSETRON 4 MG TAB PO PRN (20:45)
[2020-11-21 03:03] VITALS: RESP 16
[2020-11-21 08:19] VITALS: BP 92/57; PULSE 76; TEMP 97.7
[2020-11-21] MEDS: THIAMINE 100 MG TAB PO SCH (09:13)
[2020-11-21] MEDS: TRIHEXYPHENIDYL 2 MG TAB PO SCH (09:13)
[2020-11-21] MEDS: lisinopriL 20 MG TAB PO SCH (09:13)
[2020-11-21] MEDS: THIOTHIXENE 2 MG PO SCH (09:14)
--- NOTE | 2020-11-21 21:44 | DS ---
DISCHARGE SUMMARY CHIEF COMPLAINT: Acute alcohol intoxication. HISTORY OF PRESENT ILLNESS AND PHYSICAL EXAMINATION: Details of this man's history and physical can be found in the initial workup. LABORATORY STUDIES: While he was in the hospital, he had laboratory studies, details of which can be found in the laboratory section of his chart. COURSE IN THE HOSPITAL: After admission, he was placed on bedrest, started on intravenous fluids and placed on CIWA protocol. He became somewhat tremulous, but improved and was doing well. It was felt that he could go home on the . He could have gone home on the , but he could not arrange transportation. FINAL DIAGNOSES: 1. Acute alcohol intoxication. 2. Chronic alcoholism. 3. Chronic obstructive pulmonary disease. OPERATIONS: None. CONSULTATIONS: None. He is improved. SHIRLEY / DEL: [id number] /
== END 2020-11-21 11:28 | disposition home or self-care (01) ==
LOC: EC 16:38 → 4SSUR 20:46
PROVIDERS: ADMIT Family Medicine; ATTEND Family Medicine
DX: F10.229 Alcohol dependence with intoxication, unspecified (principal); F10.231 Alcohol dependence with withdrawal delirium; J44.9 Chronic obstructive pulmonary disease, unspecified; I10 Essential (primary) hypertension; F20.9 Schizophrenia, unspecified; F17.200 Nicotine dependence, unspecified, uncomplicated; E78.5 Hyperlipidemia, unspecified; S00.81XA Abrasion of other part of head, initial encounter; W19.XXXA Unspecified fall, initial encounter; E87.2 Acidosis; D72.829 Elevated white blood cell count, unspecified; F31.9 Bipolar disorder, unspecified; F41.9 Anxiety disorder, unspecified; Y90.8 Blood alcohol level of 240 mg/100 ml or more; Z20.822 Contact with and (suspected) exposure to COVID-19; Z88.8 Allergy status to other drugs, medicaments and biological substances; Z79.899 Other long term (current) drug therapy; Z79.82 Long term (current) use of aspirin; Z82.49 Family history of ischemic heart disease and other diseases of the circulatory system; Z83.6 Family history of other diseases of the respiratory system
CPT/HCPCS: 96374; 96372; 99285; 36415; 94640; 93005; 80053; 80048; 85025 ×2; 85610; 85730; 87635; 71046; 72125; 70450; G0378 ×5; G0480; J2060; J3411; 80320

== ENCOUNTER 2021-02-09 08:49 | Emergency (ER) | payer OTHER ==
[2021-02-09 08:55] VITALS: RESP 18; TEMP 98.2
[2021-02-09] MEDS ORDERED: ACETAMINOPHEN TAB 325 MG TAB PO STA (08:59)
[2021-02-09 09:19] LABS: Basophils # (A) 0.1 k/uL (0-0.2); Basophils % (A) 1 %; Eosinophils # (A) 0.4 k/uL (0-0.7); Eosinophils % (A) 3 %; HCT 47.7 % (39.0-53.0); HGB 15.8 gm/dL (13.0-17.5); Lymphocytes # (A) 3.2 k/uL (1.0-4.8); Lymphocytes % (A) 28 %; MCH 33.2 pg (25.0-35.0); MCHC 33.1 g/dL (31.0-37.0); MCV 100.6 fL (80.0-100.0); Macrocytosis Slight; Mean Platelet Volume 7.4; Monocytes # (A) 0.7 k/uL (0-1.0); Monocytes % (A) 6 %; Neutrophils # (A) 6.8 k/uL (1.3-7.7); Neutrophils % (A) 59 %; Platelet Count 220 k/uL (150-450); RBC 4.75 m/uL (4.30-5.90); WBC 11.4 k/uL (3.8-10.6)
[2021-02-09 09:43] LABS: ALT 18 U/L (4-49); AST 27 U/L (17-59); African American GFR (CKD) >90 (>60 ml/min/1.73 sqM); Albumin 4.7 g/dL (3.5-5.0); Alkaline Phosphatase 80 U/L (38-126); Anion Gap 13 mmol/L; Blood Urea Nitrogen 12 mg/dL (9-20); C Reactive Protein <0.5 mg/dL (<1.0); Calcium 9.5 mg/dL (8.4-10.2); Carbon Dioxide 21 mmol/L (22-30); Chloride 105 mmol/L (98-107); Glucose 111 mg/dL (74-99); LDH 337 U/L (313-618); Magnesium 1.9 mg/dL (1.6-2.3); Non-African American GFR(CKD) >90 (>60 ml/min/1.73 sqM); Potassium 4.4 mmol/L (3.5-5.1); Sodium 139 mmol/L (137-145); Total Bilirubin 0.4 mg/dL (0.2-1.3); Total Protein 8.3 g/dL (6.3-8.2)
[2021-02-09] MEDS ORDERED: SODIUM CHLORIDE 0.9% 1,000 ML IV STA (09:47)
[2021-02-09 09:58] VITALS: BP 140/89
--- NOTE | 2021-02-09 10:00 | XR ---
EXAMINATION TYPE: XR chest 2V DATE OF EXAM: 02/09/2021 COMPARISON: 11/19/2020 HISTORY: Shortness of breath TECHNIQUE: Frontal and lateral views of the chest are obtained. FINDINGS: Scattered senescent parenchymal changes noted. Hyperinflation compatible with COPD. No evidence for infiltrate. No evidence for atelectasis. Heart size is stable. Mediastinal structures are stable and grossly unremarkable. No evidence for hilar prominence. Degenerative changes dorsal spine. IMPRESSION: 1. No evidence for acute pulmonary disease.
[2021-02-09 10:05] LABS: INR 0.9 (<1.2); Partial Thromboplastin Time 22.8 sec (22.0-30.0); Prothrombin Time 10.1 sec (9.0-12.0)
--- NOTE | 2021-02-09 11:02 | ED ---
URI HPI - General Chief Complaint: Upper Respiratory Infection Stated Complaint: High BP/Dizziness Time Seen by Provider: 02/09/21 08:58 Source: patient, RN notes reviewed Mode of arrival: ambulatory Limitations: no limitations - History of Present Illness Initial Comments: Patient is a 55-year-old male that presents to the emergency department complain ing of chest discomfort upper respiratory tract symptoms the past few days. He also notes that he does primary care today and his blood pressure was way out of control. Patient notes that he walked here 10 blocks because he wasn't and was sent him to. Patient was otherwise well-appearing in no apparent distress or pain while laying in bed comfortable. Patient denied any chest pain shortness breath headache nausea vomiting diarrhea constipation fever fatigue chills. - Related Data Home Medications Medication Instructions Recorded Confirmed Atorvastatin Calcium [Lipitor] 40 mg PO DAILY 10/08/16 02/09/21 Ergocalciferol (Vitamin D2) 50,000 unit PO Q14D 01/31/18 02/09/21 [Drisdol (50,000 Iu)] Aspirin EC [Ecotrin Low Dose] 81 mg PO DAILY 05/18/20 02/09/21 Trihexyphenidyl [Artane] 2 mg PO BID 05/18/20 02/09/21 Albuterol Inhaler [Ventolin Hfa 1 - 2 puff INHALATION RT-QID PRN 11/17/20 02/09/21 Inhaler] Fluticasone Nasal [place] [Flonase 1 spr EA NOSTRIL DAILY PRN 11/17/20 02/09/21 Nasal [place]] Budesonide-Formot 160-4.5 Mcg 2 puff INHALATION RT-BID 02/09/21 02/09/21 [Symbicort 160-4.5 Mcg Inhaler] Previous Rx's Medication Instructions Recorded Thiothixene [Navane] 2 mg PO BID #20 capsule 03/16/16 lisinopriL [Zestril] 20 mg PO DAILY #30 tab 04/03/16 Allergies Allergy/AdvReac Type Severity Reaction Status Date / Time haloperidol [From Haldol] Allergy Anaphylaxis Verified 02/09/21 09:52 Review of Systems ROS Statement: Those systems with pertinent positive or pertinent negative responses have been documented in the HPI. ROS Other: All systems not noted in ROS Statement are negative. Past Medical History Past Medical History: Hyperlipidemia, Hypertension Additional Past Medical History / Comment(s): anxiety and bipolar disorder History of Any Multi-Drug Resistant Organisms: None Reported Past Surgical History: No Surgical Hx Reported Past Anesthesia/Blood Transfusion Reactions: No Reported Reaction Past Psychological History: Anxiety, Bipolar, Schizophrenia Smoking Status: Current every day smoker Past Alcohol Use History: Daily, Occasional Past Drug Use History: None Reported - Past Family History Mother Family Medical History: Myocardial Infarction ([place]) Additional Family Medical History / Comment(s): at age 54 Father History Unknown: Yes Family Medical History: Pneumonia General Exam Limitations: no limitations General appearance: alert, in no apparent distress Head exam: Present: atraumatic, normocephalic, normal inspection Eye exam: Present: normal appearance, PERRL, EOMI. Absent: scleral icterus, conjunctival injection, periorbital swelling ENT exam: Present: normal exam, mucous membranes moist, other (Very poor dentition) Neck exam: Present: normal inspection. Absent: tenderness, meningismus, lymphadenopathy Respiratory exam: Present: normal lung sounds bilaterally. Absent: respiratory distress, wheezes, rales, rhonchi, stridor Cardiovascular Exam: Present: regular rate, normal rhythm, normal heart sounds. Absent: systolic murmur, diastolic murmur, rubs, gallop, clicks Extremities exam: Present: normal inspection, full ROM, normal capillary refill. Absent: tenderness, pedal edema, joint swelling, calf tenderness Neurological exam: Present: alert, oriented X3 Psychiatric exam: Present: normal affect, normal mood Skin exam: Present: warm, dry, intact, normal color. Absent: rash Course Vital Signs 02/09/21 02/09/21 02/09/21 08:51 09:16 09:30 Temperature 98.2 F Pulse Rate 131 H 97 98 Respiratory 18 Rate Blood Pressure 139/8 140/89 O2 Sat by Pulse 97 98 98 Oximetry Medical Decision Making - Medical Decision Making 55-year-old male complaining of chest pressure and upper respiratory tract symptoms. Labs, EKG, registered nurse cardiac telemetry, chest x-ray, Covid test ordered. Labs unremarkable, troponin negative. Covid test negative. Chest x-ray shows no acute pulmonary process. EKG is within normal limits. Patient most likely has an upper respiratory tract infection. Case discussed with Dr. Silva, patient discharge home. - Lab Data Result diagrams: 02/09/21 09:04 02/09/21 09:04 Lab Results 02/09/21 02/09/21 02/09/21 Range/Units 09:04 09:04 09:04 WBC 11.4 H (3.8-10.6) k/uL RBC 4.75 (4.30-5.90) m/uL Hgb 15.8 (13.0-17.5) gm/dL Hct 47.7 (39.0-53.0) % MCV 100.6 H (80.0-100.0) fL MCH 33.2 (25.0-35.0) pg MCHC 33.1 (31.0-37.0) g/dL RDW 14.0 (11.5-15.5) % Plt Count 220 (150-450) k/uL MPV 7.4 Neutrophils % 59 % Lymphocytes % 28 % Monocytes % 6 % Eosinophils % 3 % Basophils % 1 % Neutrophils # 6.8 (1.3-7.7) k/uL Lymphocytes # 3.2 (1.0-4.8) k/uL Monocytes # 0.7 (0-1.0) k/uL Eosinophils # 0.4 (0-0.7) k/uL Basophils # 0.1 (0-0.2) k/uL Macrocytosis Slight PT 10.1 (9.0-12.0) sec INR 0.9 (<1.2) APTT 22.8 (22.0-30.0) sec Sodium 139 (137-145) mmol/L Potassium 4.4 (3.5-5.1) mmol/L Chloride 105 (98-107) mmol/L Carbon Dioxide 21 L (22-30) mmol/L Anion Gap 13 mmol/L BUN 12 (9-20) mg/dL Creatinine 0.66 (0.66-1.25) mg/dL Est GFR (CKD-EPI)AfAm >90 (>60 ml/min/1.73 sqM) Est GFR (CKD-EPI)NonAf >90 (>60 ml/min/1.73 sqM) Glucose 111 H (74-99) mg/dL Plasma Lactic Acid Joshua (0.7-2.0) mmol/L Calcium 9.5 (8.4-10.2) mg/dL Magnesium 1.9 (1.6-2.3) mg/dL Total Bilirubin 0.4 (0.2-1.3) mg/dL AST 27 (17-59) U/L ALT 18 (4-49) U/L Alkaline Phosphatase 80 (38-126) U/L Lactate Dehydrogenase 337 (313-618) U/L Troponin I (0.000-0.034) ng/mL C-Reactive Protein <0.5 (<1.0) mg/dL Total Protein 8.3 H (6.3-8.2) g/dL Albumin 4.7 (3.5-5.0) g/dL Coronavirus (PCR) (Not Detectd) 02/09/21 02/09/21 02/09/21 Range/Units 09:04 09:04 09:04 WBC (3.8-10.6) k/uL RBC (4.30-5.90) m/uL Hgb (13.0-17.5) gm/dL Hct (39.0-53.0) % MCV (80.0-100.0) fL MCH (25.0-35.0) pg MCHC (31.0-37.0) g/dL RDW (11.5-15.5) % Plt Count (150-450) k/uL MPV Neutrophils % % Lymphocytes % % Monocytes % % Eosinophils % % Basophils % % Neutrophils # (1.3-7.7) k/uL Lymphocytes # (1.0-4.8) k/uL Monocytes # (0-1.0) k/uL Eosinophils # (0-0.7) k/uL Basophils # (0-0.2) k/uL Macrocytosis PT (9.0-12.0) sec INR (<1.2) APTT (22.0-30.0) sec Sodium (137-145) mmol/L Potassium (3.5-5.1) mmol/L Chloride (98-107) mmol/L Carbon Dioxide (22-30) mmol/L Anion Gap mmol/L BUN (9-20) mg/dL Creatinine (0.66-1.25) mg/dL Est GFR (CKD-EPI)AfAm (>60 ml/min/1.73 sqM) Est GFR (CKD-EPI)NonAf (>60 ml/min/1.73 sqM) Glucose (74-99) mg/dL Plasma Lactic Acid Joshua 1.7 (0.7-2.0) mmol/L Calcium (8.4-10.2) mg/dL Magnesium (1.6-2.3) mg/dL Total Bilirubin (0.2-1.3) mg/dL AST (17-59) U/L ALT (4-49) U/L Alkaline Phosphatase (38-126) U/L Lactate Dehydrogenase (313-618) U/L Troponin I <0.012 (0.000-0.034) ng/mL C-Reactive Protein (<1.0) mg/dL Total Protein (6.3-8.2) g/dL Albumin (3.5-5.0) g/dL Coronavirus (PCR) Not Detected (Not Detectd) - EKG Data -: EKG Interpreted by [place] EKG shows normal: sinus rhythm Rate: normal EKG Comments: Ventricular rate 98 bpm, FL interval 166 ms, QRS duration 96 ms, QTC 467 ms, PRT axes 68/74/65. Normal sinus rhythm, normal ECG. - Radiology Data Radiology results: report reviewed, image reviewed Chest x-ray: No acute pulmonary process. Disposition Clinical Impression: Upper respiratory tract infection Disposition: HOME SELF-CARE Condition: Stable Instructions (If sedation given, give patient instructions): Upper Respiratory Infection (ED) Additional Instructions: Please return to the Emergency Department if symptoms worsen or any other concerns. Increase fluids. Follow-up with primary care 1-2 days. Take Tylenol Motrin alternating every 3 hours as needed for fevers aches and pains. Is patient prescribed a controlled substance at d/c from ED?: No Referrals: Alonzo Cabrera MD [Primary Care Provider] - 1-2 days Time of Disposition: 11:21
[2021-02-09 11:25] VITALS: PULSE 93
== END 2021-02-09 11:30 | disposition home or self-care (01) ==
LOC: EC 08:49
DX: J06.9 Acute upper respiratory infection, unspecified (principal); I10 Essential (primary) hypertension; E78.5 Hyperlipidemia, unspecified; F31.9 Bipolar disorder, unspecified; F41.9 Anxiety disorder, unspecified; F20.9 Schizophrenia, unspecified; F17.200 Nicotine dependence, unspecified, uncomplicated; Z79.82 Long term (current) use of aspirin; Z79.899 Other long term (current) drug therapy; Z20.822 Contact with and (suspected) exposure to COVID-19
CPT/HCPCS: 36415; 71046; 80053; 82728; 83605; 83615; 83735; 84145; 84484; 85025; 85610; 85730; 86140; 87635; 93005

== ENCOUNTER 2021-06-19 17:01 | Emergency (ER) | payer OTHER ==
[2021-06-19 17:35] VITALS: RESP 16; TEMP 98.2
--- NOTE | 2021-06-19 18:28 | CT ---
EXAMINATION TYPE: CT brain wo con CT DLP: 1143.4 mGycm, Automated exposure control for dose reduction was used. DATE OF EXAM: 06/19/2021 6:11 PM COMPARISON:Prior CT Brain from 11/17/2020. CLINICAL INDICATION:Male, 55 years old with history of HEADACHE, PT had fall w/brain bleed a month ag o, has headache and dizziness today TECHNIQUE: Brain: Multiple axial CT images of the brain were obtained without IV contrast. FINDINGS: Brain: Extra-axial spaces: No abnormal extra-axial fluid collections. Ventricular system: Within normal limits Cerebral parenchyma: No acute intraparenchymal hemorrhage or mass effect. The dominique-white junction is well differentiated. Cerebellum: Unremarkable. Mass effect: No evidence of midline shift. Intracranial vasculature: Atherosclerotic calcifications of the intracranial vessels. Soft tissues: Normal. Calvarium/osseous structures: There are new fractures through the right superior and inferior orbital ridges with minimal displacement. . Also minimally displaced fracture of the inferior and anterior m axillary maxillary sinus wall with 4 mm displacement of the anterior wall. Inferior maxillary wall fr acture extends into the upper alveolar ridge. Additional fracture through the right zygomatic arc is present in at least 2 locations with some depression medially. There is a fracture through the left s phenoid sinus. Paranasal sinuses and mastoid air cells: Mild scattered paranasal sinus disease. Visualized orbits: Orbital contents are intact. IMPRESSION: 1. Multiple acute facial fractures: right superior and inferior orbit ridges, right zygomatic arch i n 2 spots, right maxillary sinus anterior, lateral and inferior mccann and left left sphenoid sinus. 2. No acute intracranial hemorrhage/process.
--- NOTE | 2021-06-19 19:53 | ED ---
Headache HPI - General Chief Complaint: Headache Stated Complaint: Fall Time Seen by Provider: 06/19/21 19:30 Mode of arrival: wheelchair Limitations: no limitations - History of Present Illness Initial Comments: Rishabh is a 55-year-old male presents the ER today for evaluation of a headache. Patient reports he had a fall last month resulting in multiple facial fractures and bleeding in his brain. Patient states that he was admitted to the ICU at [facility] in [place]. Patient states he was in the hospital for 2 weeks and discharged about 2 weeks ago. Patient states he's been doing okay since then over the past couple of days had a headache, he contact his primary care who advised him to come the hospital for reevaluation. Patient denies any fevers chills nausea or vomiting. - Related Data Home Medications Medication Instructions Recorded Confirmed Atorvastatin Calcium [Lipitor] 40 mg PO DAILY 10/08/16 06/19/21 Ergocalciferol (Vitamin D2) 50,000 unit PO Q30D 01/31/18 06/19/21 [Drisdol (50,000 Iu)] Aspirin EC [Ecotrin Low Dose] 81 mg PO DAILY 05/18/20 06/19/21 Trihexyphenidyl [Artane] 2 mg PO BID 05/18/20 06/19/21 Albuterol Inhaler [Ventolin Hfa 1 - 2 puff INHALATION RT-QID PRN 11/17/20 06/19/21 Inhaler] Fluticasone Nasal [place] [Flonase 1 spr EA NOSTRIL DAILY PRN 11/17/20 06/19/21 Nasal [place]] Budesonide-Formot 160-4.5 Mcg 2 puff INHALATION RT-BID 02/09/21 06/19/21 [Symbicort 160-4.5 Mcg Inhaler] HYDROcodone/APAP 5-325MG [[place] 1 tab PO BID PRN 06/19/21 06/19/21 5-325] Previous Rx's Medication Instructions Recorded Thiothixene [Navane] 2 mg PO BID #20 capsule 03/16/16 lisinopriL [Zestril] 20 mg PO DAILY #30 tab 04/03/16 Allergies Allergy/AdvReac Type Severity Reaction Status Date / Time haloperidol [From Haldol] Allergy Anaphylaxis Verified 06/19/21 21:04 Review of Systems ROS Statement: Those systems with pertinent positive or pertinent negative responses have been documented in the HPI. ROS Other: All systems not noted in ROS Statement are negative. Past Medical History Past Medical History: Hyperlipidemia, Hypertension Additional Past Medical History / Comment(s): anxiety and bipolar disorder History of Any Multi-Drug Resistant Organisms: None Reported Past Surgical History: No Surgical Hx Reported Past Anesthesia/Blood Transfusion Reactions: No Reported Reaction Past Psychological History: Anxiety, Bipolar, Schizophrenia Smoking Status: Current every day smoker Past Alcohol Use History: Daily, Occasional Past Drug Use History: None Reported - Past Family History Mother Family Medical History: Myocardial Infarction ([place]) Additional Family Medical History / Comment(s): at age 54 Father History Unknown: Yes Family Medical History: Pneumonia General Exam - General Exam Comments Initial Comments: Physical Exam GENERAL: Patient is well-developed and well-nourished. Patient is nontoxic and well-hydrated and is in no distress. HENT: Normocephalic, Atraumatic. No nuchal rigidity EYES: PERRL, EOMI PULMONARY: Unlabored respirations. CARDIOVASCULAR: RRR Warm and well perfused extremities ABDOMEN: Non-distended SKIN: No rashes or bruising : Deferred NEUROLOGIC: Alert and oriented Normal speech Normal gait MUSCULOSKELETAL: Moving all extremities with no apparent injury PSYCHIATRIC: No SI/HI Limitations: no limitations Course Vital Signs 06/19/21 06/19/21 17:32 22:49 Temperature 98.2 F Pulse Rate 84 80 Respiratory 16 16 Rate Blood Pressure 134/91 101/71 O2 Sat by Pulse 100 100 Oximetry Medical Decision Making - Medical Decision Making Repeat imaging was obtained from triage and unremarkable there is no acute intracranial bleeds no fluid collections or evidence of infection or abscess Facial fractures were noted however patient reports that he fell last month he was told that his entire face was broken he's had no further trauma since then these fractures are from last month's fall. Headache cocktail was ordered for this patient Patient was re-evaluated, headache resolved, patient stable for discharge home Disposition Clinical Impression: Headache Disposition: HOME SELF-CARE Condition: Stable Instructions (If sedation given, give patient instructions): Acute Headache (ED) Is patient prescribed a controlled substance at d/c from ED?: No Referrals: Alonzo Cabrera MD [Primary Care Provider] - 1-2 days
[2021-06-19] MEDS ORDERED: METOCLOPRAMIDE 5 MG/ML 2 ML VIAL IVP STA (20:06)
[2021-06-19] MEDS ORDERED: KETOROLAC 15 MG/ML 1 ML VIAL IVP STA (20:06)
[2021-06-19] MEDS ORDERED: diphenhydrAMINE 50 MG/ML 1 ML VIAL IVP STA (20:06)
[2021-06-19 22:50] VITALS: BP 101/71; PULSE 80
== END 2021-06-19 22:50 | disposition home or self-care (01) ==
LOC: EC 17:01
DX: R51.9 Headache, unspecified (principal); I10 Essential (primary) hypertension; E78.5 Hyperlipidemia, unspecified; F41.9 Anxiety disorder, unspecified; F31.9 Bipolar disorder, unspecified; F17.200 Nicotine dependence, unspecified, uncomplicated; F20.9 Schizophrenia, unspecified; Z79.82 Long term (current) use of aspirin
CPT/HCPCS: 99284; 96374; 96375 ×2; 70450; J1200; J2765; J1885

== ENCOUNTER 2021-11-02 18:53 | Observation (INO) | payer OTHER ==
[2021-11-02] MEDS ORDERED: SODIUM CHLORIDE 0.9% 1,000 ML IV STA (19:07)
[2021-11-02] MEDS ORDERED: THIAMINE 100 MG/ML 2 ML VIAL IM STA (19:07)
[2021-11-02] MEDS ORDERED: LORazepam 2 MG/ML INJ IV PRN ×3 (19:07)
--- NOTE | 2021-11-02 19:09 | ED ---
Alcohol HPI - General Chief Complaint: Alcohol Stated Complaint: ETOH Time Seen by Provider: 11/02/21 18:58 Source: patient, EMS, RN notes reviewed - History of Present Illness Initial Comments: This is a 56-year-old male who presents to the emergency department for alcohol intoxication. Patient is very groggy and slow to answer on examination. States that he had 4 tall boy beers today, most recently 2 hours ago. States that he currently feels fine and denies any pain, nausea, or vomiting. Denies any fevers, chills, sore throat, cough, dyspnea, chest pain, palpitations, abdominal pain, nausea, vomiting, diarrhea, back pain, or headaches. MD Complaint: alcohol intoxication Time Since Last Drink: 2 -: hour(s) - Related Data Home Medications Medication Instructions Recorded Confirmed Atorvastatin Calcium [Lipitor] 40 mg PO DAILY 10/08/16 11/02/21 Ergocalciferol (Vitamin D2) 50,000 unit PO Q30D 01/31/18 11/02/21 [Drisdol (50,000 Iu)] Aspirin EC [Ecotrin Low Dose] 81 mg PO DAILY 05/18/20 11/02/21 Trihexyphenidyl [Artane] 2 mg PO BID 05/18/20 11/02/21 Albuterol Inhaler [Ventolin Hfa 1 - 2 puff INHALATION RT-QID PRN 11/17/20 11/02/21 Inhaler] Fluticasone Nasal [place] [Flonase 1 spr EA NOSTRIL DAILY PRN 11/17/20 11/02/21 Nasal [place]] Budesonide-Formot 160-4.5 Mcg 2 puff INHALATION RT-BID 02/09/21 11/02/21 [Symbicort 160-4.5 Mcg Inhaler] HYDROcodone/APAP 5-325MG [[place] 1 tab PO BID PRN 06/19/21 11/02/21 5-325] Previous Rx's Medication Instructions Recorded Thiothixene [Navane] 2 mg PO BID #20 capsule 03/16/16 lisinopriL [Zestril] 20 mg PO DAILY #30 tab 04/03/16 Allergies Allergy/AdvReac Type Severity Reaction Status Date / Time haloperidol [From Haldol] Allergy Anaphylaxis Verified 11/02/21 22:19 Review of Systems ROS Statement: Those systems with pertinent positive or pertinent negative responses have been documented in the HPI. ROS Other: All systems not noted in ROS Statement are negative. Past Medical History Past Medical History: Hyperlipidemia, Hypertension Additional Past Medical History / Comment(s): anxiety and bipolar disorder History of Any Multi-Drug Resistant Organisms: None Reported Past Surgical History: No Surgical Hx Reported Past Anesthesia/Blood Transfusion Reactions: No Reported Reaction Past Psychological History: Anxiety, Bipolar, Schizophrenia Smoking Status: Current every day smoker Past Alcohol Use History: Daily, Occasional Past Drug Use History: None Reported - Past Family History Mother Family Medical History: Myocardial Infarction ([place]) Additional Family Medical History / Comment(s): at age 54 Father History Unknown: Yes Family Medical History: Pneumonia Course Vital Signs 11/02/21 11/02/21 11/02/21 19:12 20:33 22:08 Temperature 97.5 F L Pulse Rate 114 H 99 127 H Respiratory 16 16 18 Rate Blood Pressure 91/59 103/69 82/53 O2 Sat by Pulse 95 98 98 Oximetry 11/02/21 11/02/21 22:15 23:17 Temperature Pulse Rate 106 H 100 Respiratory 16 16 Rate Blood Pressure 106/66 99/64 O2 Sat by Pulse 96 96 Oximetry Medical Decision Making - Medical Decision Making This is a 56-year-old male who presents to the emergency department for alcohol intoxication. Patient given IV fluids and the CIWA protocol was initiated. Patient's alcohol level was 372. There was confusion over whether or not the patient hit his head. Computed tomography scan of the brain was obtained, which revealed no acute intracranial irregularities. There was concern that prior to the computed tomography scan the patient's blood pressure was dropping into the 90s systolically. Patient was rehydrated with an additional liter of normal saline and started on a banana bag. Patient's blood pressure did subsequently start to improve. Patient's alcohol level meets threshold for admission. Patient admitted to medicine. This case was discussed in detail with the attending ED physician. Presentation, findings, and treatment plan discussed in detail as well. - Lab Data Result diagrams: 11/02/21 19:29 11/02/21 19:29 Lab Results 11/02/21 11/02/21 11/02/21 Range/Units 19:29 19:29 19:32 WBC 7.3 (3.8-10.6) k/uL RBC 3.79 L (4.30-5.90) m/uL Hgb 12.5 L (13.0-17.5) gm/dL Hct 38.7 L (39.0-53.0) % MCV 102.0 H (80.0-100.0) fL MCH 33.0 (25.0-35.0) pg MCHC 32.3 (31.0-37.0) g/dL RDW 13.4 (11.5-15.5) % Plt Count 198 (150-450) k/uL MPV 7.6 Neutrophils % 54 % Lymphocytes % 32 % Monocytes % 10 % Eosinophils % 1 % Basophils % 1 % Neutrophils # 4.0 (1.3-7.7) k/uL Lymphocytes # 2.3 (1.0-4.8) k/uL Monocytes # 0.7 (0-1.0) k/uL Eosinophils # 0.1 (0-0.7) k/uL Basophils # 0.1 (0-0.2) k/uL Macrocytosis Slight Sodium 135 L (137-145) mmol/L Potassium 3.9 (3.5-5.1) mmol/L Chloride 101 (98-107) mmol/L Carbon Dioxide 20 L (22-30) mmol/L Anion Gap 14 mmol/L BUN 3 L (9-20) mg/dL Creatinine 0.52 L (0.66-1.25) mg/dL Est GFR (CKD-EPI)AfAm >90 (>60 ml/min/1.73 sqM) Est GFR (CKD-EPI)NonAf >90 (>60 ml/min/1.73 sqM) Glucose 112 H (74-99) mg/dL Calcium 8.6 (8.4-10.2) mg/dL Phosphorus 3.2 (2.5-4.5) mg/dL Magnesium 1.9 (1.6-2.3) mg/dL Total Bilirubin 0.2 (0.2-1.3) mg/dL AST 49 (17-59) U/L ALT 47 (4-49) U/L Alkaline Phosphatase 66 (38-126) U/L Total Protein 6.5 (6.3-8.2) g/dL Albumin 3.7 (3.5-5.0) g/dL Amylase 76 (30-110) U/L Lipase 250 (23-300) U/L Urine Color Urine Appearance (Clear) Urine pH (5.0-8.0) Ur Specific [place] (1.001-1.035) Urine Protein (Negative) Urine Glucose (UA) (Negative) Urine Ketones (Negative) Urine Blood (Negative) Urine Nitrite (Negative) Urine Bilirubin (Negative) Urine Urobilinogen (<2.0) mg/dL Ur Leukocyte Esterase (Negative) Urine RBC (0-5) /hpf Urine WBC (0-5) /hpf Urine Opiates Screen Not Detected (NotDetected) Ur Oxycodone Screen Not Detected (NotDetected) Urine Methadone Screen Not Detected (NotDetected) Ur Propoxyphene Screen Not Detected (NotDetected) Ur Barbiturates Screen Not Detected (NotDetected) U Tricyclic Antidepress Not Detected (NotDetected) Ur Phencyclidine Scrn Not Detected (NotDetected) Ur Amphetamines Screen Not Detected (NotDetected) U Methamphetamines Scrn Not Detected (NotDetected) U Benzodiazepines Scrn Not Detected (NotDetected) Urine Cocaine Screen Not Detected (NotDetected) U Marijuana (THC) Screen Not Detected (NotDetected) Serum Alcohol 372 H* mg/dL 11/02/21 Range/Units 20:24 WBC (3.8-10.6) k/uL RBC (4.30-5.90) m/uL Hgb (13.0-17.5) gm/dL Hct (39.0-53.0) % MCV (80.0-100.0) fL MCH (25.0-35.0) pg MCHC (31.0-37.0) g/dL RDW (11.5-15.5) % Plt Count (150-450) k/uL MPV Neutrophils % % Lymphocytes % % Monocytes % % Eosinophils % % Basophils % % Neutrophils # (1.3-7.7) k/uL Lymphocytes # (1.0-4.8) k/uL Monocytes # (0-1.0) k/uL Eosinophils # (0-0.7) k/uL Basophils # (0-0.2) k/uL Macrocytosis Sodium (137-145) mmol/L Potassium (3.5-5.1) mmol/L Chloride (98-107) mmol/L Carbon Dioxide (22-30) mmol/L Anion Gap mmol/L BUN (9-20) mg/dL Creatinine (0.66-1.25) mg/dL Est GFR (CKD-EPI)AfAm (>60 ml/min/1.73 sqM) Est GFR (CKD-EPI)NonAf (>60 ml/min/1.73 sqM) Glucose (74-99) mg/dL Calcium (8.4-10.2) mg/dL Phosphorus (2.5-4.5) mg/dL Magnesium (1.6-2.3) mg/dL Total Bilirubin (0.2-1.3) mg/dL AST (17-59) U/L ALT (4-49) U/L Alkaline Phosphatase (38-126) U/L Total Protein (6.3-8.2) g/dL Albumin (3.5-5.0) g/dL Amylase (30-110) U/L Lipase (23-300) U/L Urine Color Colorless Urine Appearance Clear (Clear) Urine pH 5.0 (5.0-8.0) Ur Specific [place] 1.003 (1.001-1.035) Urine Protein Negative (Negative) Urine Glucose (UA) Negative (Negative) Urine Ketones Negative (Negative) Urine Blood Negative (Negative) Urine Nitrite Negative (Negative) Urine Bilirubin Negative (Negative) Urine Urobilinogen <2.0 (<2.0) mg/dL Ur Leukocyte Esterase Small H (Negative) Urine RBC <1 (0-5) /hpf Urine WBC <1 (0-5) /hpf Urine Opiates Screen (NotDetected) Ur Oxycodone Screen (NotDetected) Urine Methadone Screen (NotDetected) Ur Propoxyphene Screen (NotDetected) Ur Barbiturates Screen (NotDetected) U Tricyclic Antidepress (NotDetected) Ur Phencyclidine Scrn (NotDetected) Ur Amphetamines Screen (NotDetected) U Methamphetamines Scrn (NotDetected) U Benzodiazepines Scrn (NotDetected) Urine Cocaine Screen (NotDetected) U Marijuana (THC) Screen (NotDetected) Serum Alcohol mg/dL - Radiology Data Radiology results: report reviewed, image reviewed Disposition Clinical Impression: Alcohol intoxication Disposition: ADMITTED IP TO THIS HOSP
[2021-11-02 19:48] LABS: Basophils # (A) 0.1 k/uL (0-0.2); Basophils % (A) 1 %; Eosinophils # (A) 0.1 k/uL (0-0.7); Eosinophils % (A) 1 %; HCT 38.7 % (39.0-53.0); HGB 12.5 gm/dL (13.0-17.5); Lymphocytes # (A) 2.3 k/uL (1.0-4.8); Lymphocytes % (A) 32 %; MCHC 32.3 g/dL (31.0-37.0); Macrocytosis Slight; Mean Platelet Volume 7.6; Monocytes # (A) 0.7 k/uL (0-1.0); Monocytes % (A) 10 %; Neutrophils % (A) 54 %; Platelet Count 198 k/uL (150-450); RBC 3.79 m/uL (4.30-5.90); RDW 13.4 % (11.5-15.5); WBC 7.3 k/uL (3.8-10.6)
[2021-11-02 20:03] LABS: ALT 47 U/L (4-49); AST 49 U/L (17-59); African American GFR (CKD) >90 (>60 ml/min/1.73 sqM); Albumin 3.7 g/dL (3.5-5.0); Alkaline Phosphatase 66 U/L (38-126); Amylase 76 U/L (30-110); Anion Gap 14 mmol/L; Blood Urea Nitrogen 3 mg/dL (9-20); Calcium 8.6 mg/dL (8.4-10.2); Carbon Dioxide 20 mmol/L (22-30); Chloride 101 mmol/L (98-107); Glucose 112 mg/dL (74-99); Lipase 250 U/L (23-300); Magnesium 1.9 mg/dL (1.6-2.3); Non-African American GFR(CKD) >90 (>60 ml/min/1.73 sqM); Phosphorus 3.2 mg/dL (2.5-4.5); Potassium 3.9 mmol/L (3.5-5.1); Sodium 135 mmol/L (137-145); Total Bilirubin 0.2 mg/dL (0.2-1.3); Total Protein 6.5 g/dL (6.3-8.2)
[2021-11-02 20:05] LABS: Amphetamine Screen,Urine Not Detected (NotDetected); Barbiturate Screen,Urine Not Detected (NotDetected); Benzodiazepines Screen,Urine Not Detected (NotDetected); Cocaine Screen,Urine Not Detected (NotDetected); Methadone Screen, Urine Not Detected (NotDetected); Opiate Screen,Urine Not Detected (NotDetected); Oxycodone Screen, Urine Not Detected (NotDetected); Phencyclidine Screen,Urine Not Detected (NotDetected); Tricyclic Antidepressant,Urine Not Detected (NotDetected); Urn Cannabinoid Scrn Not Detected (NotDetected)
[2021-11-02 20:18] LABS: Alcohol 372 mg/dL
[2021-11-02 20:41] LABS: Appearance,Urine Clear (Clear); Bilirubin,Urine Negative (Negative); Blood,Urine Negative (Negative); Color,Urine Colorless; Glucose,Urine (UA) Negative (Negative); Ketones,Urine Negative (Negative); Leukocyte Esterase,Urine Small (Negative); Nitrite,Urine Negative (Negative); Protein,Urine Negative (Negative); RBC,Urine <1 /hpf (0-5); Specific Gravity,Urine 1.003 (1.001-1.035); Urobilinogen,Urine <2.0 mg/dL (<2.0); WBC,Urine <1 /hpf (0-5)
[2021-11-02] MEDS ORDERED: NALOXONE 0.4 MG/ML 1 ML VIAL IV PRN (21:20)
[2021-11-02] MEDS ORDERED: KETOROLAC 15 MG/ML 1 ML VIAL IVP PRN (21:20)
[2021-11-02] MEDS ORDERED: IBUPROFEN 400 MG TAB PO PRN (21:20)
[2021-11-02] MEDS ORDERED: SODIUM CHLORIDE 0.9% 1,000 ML IV ONE (21:59)
[2021-11-02] MEDS ORDERED: KETOROLAC 15 MG/ML 1 ML VIAL IVP STA (22:17)
[2021-11-02] MEDS ORDERED: SODIUM CHLORIDE 0.9% 1,000 ML with THIAMINE 100 MG, FOLIC ACID 1 MG IV ONE ×3 (22:30)
--- NOTE | 2021-11-02 23:14 | CT ---
EXAMINATION TYPE: CT brain wo con DATE OF EXAM: 11/02/2021 COMPARISON: None HISTORY: poss head injury. ETOH CT DLP: 1188.4 mGycm Automated exposure control for dose reduction was used. Images of the brain obtained with no contrast. There is cerebral cortical atrophy. There is no mass effect or midline shift. No sign of intracranial hemorrhage. Calvarium is intact. The skull base is intact. There is normal aeration of the mastoid s inuses. IMPRESSION: Cerebral atrophy. No acute intracranial abnormality. No change compared to old exam.
[2021-11-03] MEDS: THIAMINE 100 MG TAB PO SCH ×2 (08:43→18:03)
[2021-11-03] MEDS: SYMBICORT 160-4.5 MCG INHALER INHALATION SCH (21:01)
[2021-11-03] MEDS: THIOTHIXENE 1 MG CAP PO SCH (21:27)
[2021-11-03] MEDS: TRIHEXYPHENIDYL 2 MG TAB PO SCH (21:27)
[2021-11-04 04:20] VITALS: RESP 18
--- NOTE | 2021-11-04 05:03 | HP ---
HISTORY AND PHYSICAL CHIEF COMPLAINT: Acute alcohol intoxication. HISTORY OF PRESENT ILLNESS: This is an another admission for this alcoholic with COPD. He is constantly seeking narcotic analgesics. . He presented through the emergency room intoxicated. He has been falling frequently lately secondary to his drinking. REVIEW OF SYSTEMS: He denies any focal neurologic deficits, headaches, chest pain, abdominal pain, nausea, vomiting, hematemesis, melena, hematochezia, jaundice, etc. Past medical history, family history, personal and social histories are otherwise unremarkable outside of his drinking history and excessive smoking. PHYSICAL EXAMINATION: VITAL SIGNS: Blood pressure is 128/72 with a pulse of 85, respirations 35. He is afebrile. GENERAL: He appeared to be lethargic and disheveled. SKIN: and dry. HEAD, EARS, EYES, NOSE, AND THROAT: Unremarkable except for the contusion of the forehead. Pupils equal and round, and gaze is conjugate. NECK: Supple. CHEST: Clear. CARDIAC: Sinus rhythm. ABDOMEN: Soft and nontender. Bowel sounds are present. EXTREMITIES: Normal. NEUROLOGICAL: Intact. ASSESSMENT: He is admitted to the hospital with diagnoses: 1. Acute alcohol intoxication. 2. Chronic alcoholism. 3. Chronic obstructive pulmonary disease. 4. Narcotic abuse. 5. Frequent falling. 6. Contusion to forehead. PLAN: 1. Bedrest. 2. IV fluids. 3. CIWA protocol. 4. Watch for DTs. SHIRLEY / MAXIN: [id number] /
[2021-11-04 08:34] VITALS: BP 132/76; PULSE 66; TEMP 97.9
[2021-11-04] MEDS: TRIHEXYPHENIDYL 2 MG TAB PO SCH (08:42)
[2021-11-04] MEDS: THIOTHIXENE 1 MG CAP PO SCH (08:42)
[2021-11-04] MEDS: THIAMINE 100 MG TAB PO SCH (08:42)
[2021-11-04] MEDS: SYMBICORT 160-4.5 MCG INHALER INHALATION SCH (08:43)
[2021-11-04] MEDS ORDERED: lisinopriL 20 MG TAB PO SCH (09:00)
[2021-11-04] MEDS ORDERED: ATORVASTATIN 40 MG TAB PO SCH (09:00)
[2021-11-04] MEDS ORDERED: ASPIRIN 81 MG PO SCH (09:00)
--- NOTE | 2021-11-04 13:51 | P.DS ---
Providers Date of admission: 11/02/21 20:49 Attending physician: Alonzo Cabrera Primary care physician: Alonzo Cabrera Hospital Course: Patient is admitted for alcohol intoxication and fall secondary to that. Patient is not having any withdrawals patient last drink was a 2 days ago. Patient is clinically doing well patient will be discharged on thiamine follow- up with PCP as an outpatient patient is willing to quit alcohol. PHYSICAL EXAMINATION: GENERAL: The patient is alert and oriented x3, not in any acute distress. Well developed, well nourished. HEENT: Pupils are round and equally reacting to light. EOMI. No scleral icterus. No conjunctival pallor. Normocephalic, atraumatic. No pharyngeal erythema. No thyromegaly. CARDIOVASCULAR: S1 and S2 present. No murmurs, rubs, or gallops. PULMONARY: Chest is clear to auscultation, no wheezing or crackles. ABDOMEN: Soft, nontender, nondistended, normoactive bowel sounds. No palpable organomegaly. MUSCULOSKELETAL: No joint swelling or deformity. EXTREMITIES: No cyanosis, clubbing, or pedal edema. NEUROLOGICAL: Gross neurological examination did not reveal any focal deficits. SKIN: No rashes. Assessment and plan Alcohol intoxication resolved patient doesn't have any alcohol withdrawals The rest of the problems please refer to his PCPs assessment and plan Plan - Discharge Summary Discharge Rx Participant: Yes New Discharge Prescriptions: New Thiamine [Vitamin B-1] 100 mg PO BID-W/MEALS #30 tab Continue Thiothixene [Navane] 2 mg PO BID #20 capsule lisinopriL [Zestril] 20 mg PO DAILY #30 tab Atorvastatin Calcium [Lipitor] 40 mg PO DAILY Ergocalciferol (Vitamin D2) [Drisdol (50,000 Iu)] 50,000 unit PO Q30D Aspirin EC [Ecotrin Low Dose] 81 mg PO DAILY Trihexyphenidyl [Artane] 2 mg PO BID Budesonide-Formot 160-4.5 Mcg [Symbicort 160-4.5 Mcg Inhaler] 2 puff INHALATION RT-BID HYDROcodone/APAP 5-325MG [[place] 5-325] 1 tab PO BID PRN PRN Reason: Pain Fluticasone Nasal [place] [Flonase Nasal [place]] 1 spr EA NOSTRIL DAILY PRN PRN Reason: Allergy Symptoms Albuterol Inhaler [Ventolin Hfa Inhaler] 1 - 2 puff INHALATION RT-QID PRN PRN Reason: Shortness Of Breath Discharge Medication List Thiothixene [Navane] 2 mg PO BID #20 capsule 03/16/16 [Rx] lisinopriL [Zestril] 20 mg PO DAILY #30 tab 04/03/16 [Rx] Atorvastatin Calcium [Lipitor] 40 mg PO DAILY 10/08/16 [History] Ergocalciferol (Vitamin D2) [Drisdol (50,000 Iu)] 50,000 unit PO Q30D 01/31/18 [History] Aspirin EC [Ecotrin Low Dose] 81 mg PO DAILY 05/18/20 [History] Trihexyphenidyl [Artane] 2 mg PO BID 05/18/20 [History] Albuterol Inhaler [Ventolin Hfa Inhaler] 1 - 2 puff INHALATION RT-QID PRN 11/17/20 [History] Fluticasone Nasal [place] [Flonase Nasal [place]] 1 spr EA NOSTRIL DAILY PRN 11/17/20 [History] Budesonide-Formot 160-4.5 Mcg [Symbicort 160-4.5 Mcg Inhaler] 2 puff INHALATION RT-BID 02/09/21 [History] HYDROcodone/APAP 5-325MG [[place] 5-325] 1 tab PO BID PRN 06/19/21 [History] Thiamine [Vitamin B-1] 100 mg PO BID-W/MEALS #30 tab 11/04/21 [Rx] Follow up Appointment(s)/Referral(s): Alonzo Cabrera MD [Primary Care Provider] - 1-2 days
--- NOTE | 2021-11-04 19:49 | PN ---
PROGRESS NOTE CHIEF COMPLAINT: Acute alcohol intoxication and chronic alcoholism. HISTORY OF PRESENT ILLNESS: This gentleman . He denies chest pain, . PHYSICAL EXAMINATION: . CHEST: Clear. CARDIAC: Normal. ABDOMEN: Soft. No masses. IMPRESSION: 1. Acute alcohol intoxication. 2. Chronic alcoholism. 3. Chronic obstructive pulmonary disease. 4. Narcotic abuse. PLAN: Continue with IV fluids and monitor for withdrawal. MMAUBREEL / IJN: [id number] /
== END 2021-11-04 14:21 | disposition home or self-care (01) ==
LOC: EC 18:53 → 6NMEDSUR 20:49
PROVIDERS: ADMIT Family Medicine; ATTEND Family Medicine
DX: F10.220 Alcohol dependence with intoxication, uncomplicated (principal); S00.83XA Contusion of other part of head, initial encounter; I10 Essential (primary) hypertension; E78.5 Hyperlipidemia, unspecified; F31.9 Bipolar disorder, unspecified; F17.200 Nicotine dependence, unspecified, uncomplicated; F20.9 Schizophrenia, unspecified; F41.9 Anxiety disorder, unspecified; G31.89 Other specified degenerative diseases of nervous system; F11.10 Opioid abuse, uncomplicated; J44.9 Chronic obstructive pulmonary disease, unspecified; Z79.899 Other long term (current) drug therapy; Z79.82 Long term (current) use of aspirin; Z79.51 Long term (current) use of inhaled steroids; Z82.49 Family history of ischemic heart disease and other diseases of the circulatory system; W19.XXXA Unspecified fall, initial encounter; Y90.8 Blood alcohol level of 240 mg/100 ml or more
CPT/HCPCS: 96366 ×2; 96361; 96365; 96372; 96375; 99285; 36415; 94640 ×2; 80053; 82150; 83690; 83735; 84100; 85025; 81001; 80306; 70450; G0378 ×3; G0480; J3411; J1885; 80320

== ENCOUNTER 2022-05-28 03:08 | Observation (INO) | payer OTHER ==
[2022-05-28] MEDS ORDERED: SODIUM CHLORIDE 0.9% 1,000 ML IV STA (03:19)
[2022-05-28 03:20] VITALS: RESP 16
--- NOTE | 2022-05-28 03:27 | ED ---
General Adult HPI - General Stated complaint: ETOH Time Seen by Provider: 05/28/22 03:14 Source: patient, EMS, RN notes reviewed, old records reviewed Mode of arrival: EMS Limitations: no limitations - History of Present Illness Initial comments: Patient is a 56-year-old male with past medical history remarkable for hypertension, alcohol abuse, bipolar disorder who presents emergency Department after calling EMS for "feeling unwell." Patient is having a hard time explaining exactly why he called EMS. States he has been having blurry vision out of his right eye for the last 3-4 months. Denies any trauma or recent falls. Has not followed up with anyone for this. Relatively unchanged. Can still see out of it, however objects have blurry margins. Does not wear glasse s. Does endorse drinking alcohol this evening. States he drank "2-4 beers." Denies any liquor abuse. His no other acute complaints at this time. Denies abdominal pain, nausea, vomiting, fevers, chills, chest pain, shortness of breath. Denies any headaches. His no other acute complaints. Presents for further evaluation. - Related Data Home Medications Medication Instructions Recorded Confirmed Atorvastatin Calcium [Lipitor] 40 mg PO DAILY 10/08/16 11/02/21 Ergocalciferol (Vitamin D2) 50,000 unit PO Q30D 01/31/18 11/02/21 [Drisdol (50,000 Iu)] Aspirin EC [Ecotrin Low Dose] 81 mg PO DAILY 05/18/20 11/02/21 Trihexyphenidyl [Artane] 2 mg PO BID 05/18/20 11/02/21 Albuterol Inhaler [Ventolin Hfa 1 - 2 puff INHALATION RT-QID PRN 11/17/2003/25 Inhaler] Fluticasone Nasal [place] [Flonase 1 spr EA NOSTRIL DAILY PRN 11/17/20 11/02/21 Nasal [place]] Budesonide-Formot 160-4.5 Mcg 2 puff INHALATION RT-BID 02/09/21 11/02/21 [Symbicort 160-4.5 Mcg Inhaler] HYDROcodone/APAP 5-325MG [[place] 1 tab PO BID PRN 06/19/21 11/02/21 5-325] Previous Rx's Medication Instructions Recorded Thiothixene [Navane] 2 mg PO BID #20 capsule 03/16/16 lisinopriL [Zestril] 20 mg PO DAILY #30 tab 04/03/16 Thiamine [Vitamin B-1] 100 mg PO BID-W/MEALS #30 tab 11/04/21 Allergies Allergy/AdvReac Type Severity Reaction Status Date / Time haloperidol [From Haldol] Allergy Anaphylaxis Verified 05/28/22 03:20 Review of Systems ROS Statement: Those systems with pertinent positive or pertinent negative responses have been documented in the HPI. Review of Systems: CONST: Denies fever EYES: Endorses multiple months of right eye blurry vision. ENT: Denies nasal congestion C/V: Denies Chest pain RESP: Denies shortness of breath GI: Denies abdominal pain : Denies dysuria SKIN: Denies rash. MSK: Denies joint pain. NEURO: Denies headache ROS Other: All systems not noted in ROS Statement are negative. Past Medical History Past Medical History: Hyperlipidemia, Hypertension Additional Past Medical History / Comment(s): anxiety and bipolar disorder History of Any Multi-Drug Resistant Organisms: None Reported Past Surgical History: No Surgical Hx Reported Past Anesthesia/Blood Transfusion Reactions: No Reported Reaction Past Psychological History: Anxiety, Bipolar, Schizophrenia Smoking Status: Current every day smoker Past Alcohol Use History: Daily, Occasional Past Drug Use History: None Reported - Past Family History Mother Family Medical History: Myocardial Infarction (PR) Additional Family Medical History / Comment(s): at age 54 Father History Unknown: Yes Family Medical History: Pneumonia General Exam - General Exam Comments Initial Comments: General: Appears acutely intoxicated with alcohol. Smells of alcohol. HEAD: Normal with no signs of head trauma. EYES: PERRLA, EOMI, conjunctiva normal, no discharge. Patient does appear to have normal visual acuity in bilateral eyes. Blurriness appears to be somewhat subjective. When isolating the Eyes patient has identical normal visual acuity. Pupils are 3 mm and equal bilaterally. ENT: Hearing grossly intact, normal oropharynx. Poor dentition RESPIRATORY: Clear breath sounds bilaterally. No wheezes, rales, or rhonchi. C/V: Regular rate and rhythm. S1 and S2 auscultated, no edema, peripheral pulses 2+ and intact throughout ABD: Abd is soft, nontender, nondistended EXT: Normal range of motion, no obvious deformity SKIN: No rashes or lesions observed on exposed skin. NEURO: Alert and oriented x 4. Cranial nerves II-XII intact. No focal sensory or strength deficits. Limitations: no limitations Course Vital Signs 05/28/22 05/28/22 05/28/22 03:17 04:00 05:00 Temperature 98 F Pulse Rate 75 96 110 H Respiratory 16 16 16 Rate Blood Pressure 110/64 120/70 96/72 O2 Sat by Pulse 99 98 100 Oximetry Medical Decision Making - Medical Decision Making Was pt. sent in by a medical professional or institution (, ROBERTO, HOTEL ASSISTANT MANAGER, urgent care, hospital, or senior care...) When possible be specific @ -No Did you speak to anyone other than the patient for history (EMS, parent, family, police, friend...)? What history was obtained from this source @ -No Did you review nursing and triage notes (agree or disagree)? Why? @ -I reviewed and agree with nursing and triage notes Were old charts reviewed (outside hosp., previous admission, EMS record, old EKG, old radiological studies, urgent care reports/EKG's, senior care records)? Report findings @ -Old charts reviewed from November 2021 when patient presented with alcohol intoxication then. Differential Diagnosis (chest pain, altered mental status, abdominal pain women, abdominal pain men, vaginal bleeding, weakness, fever, dyspnea, syncope, headache, dizziness, GI bleed, back pain, seizure, CVA, palpatations, mental health, musculoskeletal)? @ -Alcohol intoxication, intracranial injury, dehydration, age related vision changes. This list is not all inclusive. EKG interpreted by me (3pts min.). @ -As above X-rays interpreted by me (1pt min.). @ -Chest x-ray showed no obvious acute cardio pulmonary process. CT interpreted by me (1pt min.). @ -CT brain revealed no obvious acute intracranial process or injury. U/S interpreted by me (1pt. min.). @ -None done What testing was considered but not performed or refused? (CT, X-rays, U/S, labs)? Why? @ -None What meds were considered but not given or refused? Why? @ -None Did you discuss the management of the patient with other professionals (professionals i.e. , ROBERTO, HOTEL ASSISTANT MANAGER, lab, RT, psych nurse, social media marketing manager, press reader, teacher, geospatial program management officer, case advocate)? Give summary @ -No Was smoking cessation discussed for >3mins.? @ -No Was critical care preformed (if so, how long)? @ -No Were there social determinants of health that impacted care today? How? (Homelessness, low income, unemployed, alcoholism, drug addiction, trans portation, low edu. Level, literacy, decrease access to med. care, [place] [facility], rehab)? @ -No Was there de-escalation of care discussed even if they declined (Discuss DNR or withdrawal of care, Hospice)? DNR status @ -No What co-morbidities impacted this encounter? (DM, HTN, Smoking, COPD, CAD, Cancer, CVA, ARF, Chemo, Hep., AIDS, mental health diagnosis, sleep apnea, morbid obesity)? @ -None Was patient admitted / discharged? Hospital course, mention meds given and route, prescriptions, significant lab abnormalities, going to OR and other pertinent info. @ -Based on the patient's presentation and physical exam, he appears acutely intoxicated with alcohol which appears to be the primary complaint but is also complaining of multiple months of blurry vision in the right eye. States it comes and goes. Still appears to have normal visual acuity as well as a normal eye exam otherwise. We'll obtain CT brain this patient is an alcoholic and is at increased risk for intracranial trauma with falls. Obtaining basic labs, as as well as a screening EKG and chest x-ray. He was in agreement this plan. Vital signs are within acceptable limits. He'll receive a 1 L fluid bolus. Patient's labs are remarkable for an elevated alcohol of 326. Remainder the labs are within acceptable limits. Imaging was within acceptable limits, including the patient's brain CT and chest x-ray. No obvious injuries. On reevaluation, patient sleeping comfortably. I updated him on the results. He expressed understanding. Due to his acute alcohol intoxication, he will be admitted to observation for sobriety. [facility] protocol was ordered. Patient was in agreement this plan. Discussed with him that his vision appears to be within normal limits, as he is still seeing out of his right and left eyes. It is a chronic process. Recommended that he follow up with an cellular biologist. He was in agreement this plan. No obvious acute concerning findings at this time. Acuity appears to be equal in both eyes. I spoke with the admitting physician, Dr. Cabrera who accepted the admission. Undiagnosed new problem with uncertain prognosis? @ -No Drug Therapy requiring intensive monitoring for toxicity (Heparin, Nitro, Insul in, Cardizem)? @ -No Were any procedures done? @ -No Diagnosis/symptom? @ -Alcohol Intoxication Acute, or Chronic, or Acute on Chronic? @ - Acute on chronic Uncomplicated (without systemic symptoms) or Complicated (systemic symptoms)? @ -Uncomplicated Side effects of treatment? @ -No Exacerbation, Progression, or Severe Exacerbation? @ -No Poses a threat to life or bodily function? How? (Chest pain, USA, PR, pneumonia, PE, COPD, DKA, ARF, appy, cholecystitis, CVA, Diverticulitis, Homicidal, Suicidal, threat to staff... and all critical care pts) @ -No Diagnosis/symptom? @ -Blurry vision Acute, or Chronic, or Acute on Chronic? @ -chronic Uncomplicated (without systemic symptoms) or Complicated (systemic symptoms)? @ -uncomplicated Side effects of treatment? @ -none Exacerbation, Progression, or Severe Exacerbation] @ -no Poses a threat to life or bodily function? @ -no - Lab Data Result diagrams: 05/28/22 03:29 05/28/22 03:29 Lab Results 05/28/22 05/28/22 Range/Units 03:29 03:29 WBC 6.7 (3.8-10.6) k/uL RBC 4.60 (4.30-5.90) m/uL Hgb 15.2 (13.0-17.5) gm/dL Hct 44.4 (39.0-53.0) % MCV 96.4 (80.0-100.0) fL MCH 33.0 (25.0-35.0) pg MCHC 34.2 (31.0-37.0) g/dL RDW 12.5 (11.5-15.5) % Plt Count 156 (150-450) k/uL MPV 7.7 Neutrophils % 44 % Lymphocytes % 42 % Monocytes % 8 % Eosinophils % 3 % Basophils % 1 % Neutrophils # 2.9 (1.3-7.7) k/uL Lymphocytes # 2.8 (1.0-4.8) k/uL Monocytes # 0.6 (0-1.0) k/uL Eosinophils # 0.2 (0-0.7) k/uL Basophils # 0.1 (0-0.2) k/uL Sodium 131 L (137-145) mmol/L Potassium 4.7 (3.5-5.1) mmol/L Chloride 99 (98-107) mmol/L Carbon Dioxide 23 (22-30) mmol/L Anion Gap 9 mmol/L BUN 6 L (9-20) mg/dL Creatinine 0.62 L (0.66-1.25) mg/dL Est GFR (CKD-EPI)AfAm >90 (>60 ml/min/1.73 sqM) Est GFR (CKD-EPI)NonAf >90 (>60 ml/min/1.73 sqM) Glucose 107 H (74-99) mg/dL Calcium 8.4 (8.4-10.2) mg/dL Serum Alcohol 326 H* mg/dL - EKG Data -: EKG Interpreted by Me EKG Comments: 12-lead Electrocardiogram Interpretation Note EKG was reviewed and interpreted by myself. 12-lead ECG performed at 0341 is interpreted by me as revealing normal sinus rhythm at a rate of 93 beats per minute. [place] is normal. [place] interval is 165 ms, QRS duration is 98 ms, QTc is 409 ms.. There were no ST or T wave abnormalities to suggest myocardial ischemia or injury. R wave progression across the precordium was satisfactory. By my interpretation this EKG is non-diagnostic for acute ischemia. When compared with EKG from February 2021, no significant change. Disposition Clinical Impression: Alcohol intoxication, Blurry vision Disposition: ADMITTED IP TO THIS HOSP Condition: Stable Referrals: None,Stated [REFERRING] - 1-2 days Time of Disposition: 04:50
[2022-05-28 03:57] LABS: African American GFR (CKD) >90 (>60 ml/min/1.73 sqM); Anion Gap 9 mmol/L; Blood Urea Nitrogen 6 mg/dL (9-20); Calcium 8.4 mg/dL (8.4-10.2); Carbon Dioxide 23 mmol/L (22-30); Chloride 99 mmol/L (98-107); Glucose 107 mg/dL (74-99); Non-African American GFR(CKD) >90 (>60 ml/min/1.73 sqM); Sodium 131 mmol/L (137-145)
[2022-05-28 04:05] LABS: Alcohol 326 mg/dL; Potassium 4.7 mmol/L (3.5-5.1)
[2022-05-28 04:28] LABS: Basophils # (A) 0.1 k/uL (0-0.2); Basophils % (A) 1 %; Eosinophils # (A) 0.2 k/uL (0-0.7); Eosinophils % (A) 3 %; HCT 44.4 % (39.0-53.0); HGB 15.2 gm/dL (13.0-17.5); Lymphocytes # (A) 2.8 k/uL (1.0-4.8); Lymphocytes % (A) 42 %; MCHC 34.2 g/dL (31.0-37.0); MCV 96.4 fL (80.0-100.0); Mean Platelet Volume 7.7; Monocytes # (A) 0.6 k/uL (0-1.0); Monocytes % (A) 8 %; Neutrophils # (A) 2.9 k/uL (1.3-7.7); Neutrophils % (A) 44 %; Platelet Count 156 k/uL (150-450); RDW 12.5 % (11.5-15.5); WBC 6.7 k/uL (3.8-10.6)
--- NOTE | 2022-05-28 04:46 | CT ---
EXAMINATION TYPE: CT brain wo con DATE OF EXAM: 05/28/2022 COMPARISON: 11/02/2021 HISTORY: ETOH, BLURRY VISION IN RT EYE X3 MONTHS CT DLP: 1291 mGycm Automated exposure control for dose reduction was used. Ventricles have normal size. There is no mass effect or midline shift. No sign of intracranial hemorr annemarie. There is mild cerebral atrophy. The calvarium is intact. IMPRESSION: Mild atrophy. No acute abnormality. No hemorrhage. No significant change.
--- NOTE | 2022-05-28 04:47 | XR ---
EXAMINATION TYPE: XR chest 1V portable DATE OF EXAM: 05/28/2022 COMPARISON: 02/09/2021 HISTORY: Short of breath. Chest pain TECHNIQUE: Single view FINDINGS: There is no heart failure nor confluent pneumonic infiltrate. Costophrenic angles are clear . Bony thorax is intact IMPRESSION: No active cardiopulmonary disease. No change.
[2022-05-28] MEDS ORDERED: LORazepam 0.5 MG TAB PO PRN (05:04)
[2022-05-28] MEDS ORDERED: LORazepam 1 MG TAB PO PRN ×3 (05:04)
[2022-05-28] MEDS ORDERED: THIAMINE 100 MG/ML 2 ML VIAL IM STA (05:04)
[2022-05-28] MEDS ORDERED: NALOXONE 0.4 MG/ML 1 ML VIAL IV PRN (05:05)
[2022-05-28] MEDS: SODIUM CHLORIDE 0.9% 1,000 ML IV SCH ×3 (06:03→20:28)
[2022-05-28] MEDS: THIOTHIXENE 1 MG CAP PO SCH ×2 (13:34→20:27)
[2022-05-28] MEDS: TRIHEXYPHENIDYL 2 MG TAB PO SCH ×2 (13:34→20:27)
[2022-05-28] MEDS: THIAMINE 100 MG TAB PO SCH (17:48)
[2022-05-28] MEDS: SYMBICORT 160-4.5 MCG INHALER INHALATION SCH (19:02)
[2022-05-29] MEDS: SODIUM CHLORIDE 0.9% 1,000 ML IV SCH (03:34)
[2022-05-29] MEDS: THIAMINE 100 MG TAB PO SCH (05:39)
[2022-05-29 07:01] VITALS: BP 103/68; PULSE 72; TEMP 98.4
--- NOTE | 2022-05-29 07:29 | HP ---
HISTORY AND PHYSICAL CHIEF COMPLAINT: Acute alcohol intoxication. HISTORY OF PRESENT ILLNESS: This is another admission for this 56-year-old chronic alcoholic. He apparently came into the emergency room intoxicated. He was complaining of blurry vision. REVIEW OF SYMPTOMS: Cannot be obtained at this time because of his lethargy. He is known to be chronic alcoholic. He also has a history of hypertension. He does smoke and he has COPD. He was last seen in the office on the 21 of April. Past medical history, family history, personal and social histories reveal that he is allergic to Haldol. MEDICATIONS: That he is on include, 1. Thiothixene 2 mg twice a day. 2. Trihexyphenidyl 2 mg twice a day. 3. Lisinopril 20 mg once a day. 4. Atorvastatin 40 mg once a day. 5. Thiamine 100 mg twice a day. 6. Symbicort inhaler. 7. Proventil inhaler. 8. Aspirin. It is not known if he is taking these medicines for not. He does smoke and he drinks heavily. PHYSICAL EXAMINATION: VITAL SIGNS: Blood pressure is 120/70 with a pulse of 107 and respirations of 33. GENERAL: He appeared to be dehydrated, disheveled, and lethargic. HEAD, EARS, EYES, NOSE, MOUTH AND THROAT: Appeared to be normal. CHEST: Breath sounds are heard bilaterally. CARDIAC: Demonstrates sinus tachycardia. ABDOMEN: Soft and nontender. EXTREMITIES: Normal. NEUROLOGICAL: He is very lethargic. IMPRESSION: 1. Acute alcohol intoxication. 2. Chronic alcoholism. 3. Chronic obstructive pulmonary disease. 4. History of hypertension. PLAN: 1. Bed rest. 2. IV fluids. 3. Watch for DTs. MMODL / IJN: [id number] /
[2022-05-29] MEDS: TRIHEXYPHENIDYL 2 MG TAB PO SCH (08:20)
[2022-05-29] MEDS: THIOTHIXENE 1 MG CAP PO SCH (08:20)
[2022-05-29] MEDS ORDERED: ACETAMINOPHEN TAB 325 MG TAB PO PRN (08:59)
[2022-05-29] MEDS ORDERED: ASPIRIN 81 MG PO SCH (09:00)
[2022-05-29] MEDS ORDERED: THIAMINE 100 MG TAB PO SCH (09:00)
[2022-05-29] MEDS: SYMBICORT 160-4.5 MCG INHALER INHALATION SCH (09:03)
[2022-05-29 09:37] LABS: Basophils % (A) 1.2 %; Eosinophils # (A) 0.24 X 10*3/uL (0.04-0.35); Eosinophils % (A) 2.9 %; HCT 34.5 % (39.6-50.0); HGB 11.7 g/dL (13.0-17.0); Immature Grans, Automated 0.2 %; Lymphocytes # (A) 3.88 X 10*3/uL (0.90-5.00); Lymphocytes % (A) 47.3 %; MCH 32.7 pg (27.0-32.0); MCHC 33.9 g/dL (32.0-37.0); MCV 96.4 fL (80.0-97.0); Mean Platelet Volume 9.8 fL (9.5-12.2); Monocytes # (A) 0.99 X 10*3/uL (0.20-1.00); Monocytes % (A) 12.1 %; NRBC Per 100 WBC 0 /100 WBCS (0.0-0.0); Neutrophils # (A) 2.97 X 10*3/uL (1.80-7.70); Neutrophils % (A) 36.3 %; Platelet Count 166 X 10*3/uL (140-440); RBC 3.58 X 10*6/uL (4.40-5.60); RDW 12.7 % (11.5-14.5)
[2022-05-29 09:44] LABS: Anion Gap 6.7 mmol/L (10.00-18.00); BUN/Creat Ratio 11.29 Ratio (12.00-20.00); Blood Urea Nitrogen 7.9 mg/dL (9.0-27.0); Calcium 8.7 mg/dL (8.7-10.3); Carbon Dioxide 26.3 mmol/L (20.0-27.5)
--- NOTE | 2022-05-29 22:09 | DS ---
DISCHARGE SUMMARY CHIEF COMPLAINT: Acute alcohol intoxication. HISTORY OF PRESENT ILLNESS AND PHYSICAL EXAM: Details of this man's history and physical can be found in the initial workup. LABORATORY STUDIES: While he was in the hospital, he had laboratory studies, details of which can be found in the laboratory section of his chart. COURSE IN THE HOSPITAL: After admission, he was placed on bedrest, started on intravenous fluids, and he became sober and awake and alert. He was doing well and he was stable, and was felt he could go home on the and he can go home on his usual activity, diet, and medication and will follow up in the office in several days. FINAL DIAGNOSES: 1. Acute alcohol intoxication. 2. Chronic alcoholism. 3. Schizophrenia. 4. Chronic obstructive pulmonary disease. OPERATIONS: None. CONSULTATIONS: None. He is improved. MMJAELYN / DEL: [id number] /
== END 2022-05-29 12:30 | disposition home or self-care (01) ==
LOC: EC 03:08 → 6NMEDSUR 05:06
PROVIDERS: ADMIT Family Medicine; ATTEND Family Medicine
DX: F10.288 Alcohol dependence with other alcohol-induced disorder (principal); F10.229 Alcohol dependence with intoxication, unspecified; F20.9 Schizophrenia, unspecified; J44.9 Chronic obstructive pulmonary disease, unspecified; I10 Essential (primary) hypertension; F31.9 Bipolar disorder, unspecified; Z79.82 Long term (current) use of aspirin; Z79.51 Long term (current) use of inhaled steroids; Z79.899 Other long term (current) drug therapy; Z88.8 Allergy status to other drugs, medicaments and biological substances
CPT/HCPCS: 99285; 36415; 94640 ×2; 93005; 80048 ×2; 85025 ×2; 71045; 70450; G0378 ×2; G0480; J3411; 80320

== ENCOUNTER 2022-06-05 22:00 | Emergency (ER) | payer OTHER ==
--- NOTE | 2022-06-05 22:53 | ED ---
Fall HPI - General Stated Complaint: Fall ETOH Time Seen by Provider: 06/05/22 22:07 - History of Present Illness Initial Comments: Patient is a 56-year-old male who presents to the emergency department for evaluation of fall. [facility]. He had a witnessed fall after tripping over the curb. Patient hit his head. He did not lose consciousness. He is not on blood thinners. Patient is intoxicated states he had 7 tall beers today, last drink one hour ago. He reports generalized mild headache. Denies other injury. Denies chest pain or shortness of breath. - Related Data Home Medications Medication Instructions Recorded Confirmed Atorvastatin Calcium [Lipitor] 40 mg PO DAILY 10/08/16 05/28/22 Ergocalciferol (Vitamin D2) 50,000 unit PO QMONTHLY 01/31/18 05/28/22 [Drisdol (50,000 Iu)] Aspirin EC [Ecotrin Low Dose] 81 mg PO DAILY 05/18/20 05/28/22 Trihexyphenidyl [Artane] 2 mg PO BID 05/18/20 05/28/22 Albuterol Inhaler [Ventolin Hfa 1 - 2 puff INHALATION RT-QID PRN 11/17/20 05/28/22 Inhaler] Fluticasone Nasal [place] [Flonase 1 spr EA NOSTRIL DAILY 11/17/20 05/28/22 Nasal [place]] Budesonide-Formot 160-4.5 Mcg 2 puff INHALATION RT-BID 02/09/21 05/28/22 [Symbicort 160-4.5 Mcg Inhaler] Previous Rx's Medication Instructions Recorded Thiothixene [Navane] 2 mg PO BID #20 capsule 03/16/16 lisinopriL [Zestril] 20 mg PO DAILY #30 tab 04/03/16 Thiamine [Vitamin B-1] 100 mg PO BID-W/MEALS #30 tab 11/04/21 Allergies Allergy/AdvReac Type Severity Reaction Status Date / Time haloperidol [From Haldol] Allergy Anaphylaxis Verified 05/28/22 08:35 Review of Systems ROS Statement: Those systems with pertinent positive or pertinent negative responses have been documented in the HPI. ROS Other: All systems not noted in ROS Statement are negative. Past Medical History Past Medical History: Hyperlipidemia, Hypertension Additional Past Medical History / Comment(s): anxiety and bipolar disorder History of Any Multi-Drug Resistant Organisms: None Reported Past Surgical History: No Surgical Hx Reported Past Anesthesia/Blood Transfusion Reactions: No Reported Reaction Past Psychological History: Anxiety, Bipolar, Schizophrenia Smoking Status: Current every day smoker Past Alcohol Use History: Daily, Occasional Past Drug Use History: None Reported - Past Family History Mother Family Medical History: Myocardial Infarction (MS) Additional Family Medical History / Comment(s): at age 54 Father History Unknown: Yes Family Medical History: Pneumonia General Exam General appearance: in no apparent distress, appears intoxicated Head exam: Present: atraumatic, normocephalic, normal inspection ENT exam: Present: TM's normal bilaterally, other (No tongue fasciculation) Neck exam: Present: normal inspection. Absent: tenderness, meningismus, lymphadenopathy Respiratory exam: Present: normal lung sounds bilaterally. Absent: respiratory distress, wheezes, rales, rhonchi, stridor Cardiovascular Exam: Present: regular rate, normal rhythm, normal heart sounds. Absent: systolic murmur, diastolic murmur, rubs, gallop, clicks Neurological exam: Present: CN II-XII intact Expanded Cranial nerves: EOM's Intact: Normal, Facial Sensation: Normal, Facial Palsy with Forehead Movement: Normal, Facial Palsy without Forehead Movement: Normal Sensory exam: Upper Extremity Light Touch: Normal, Lower Extremity Light Touch: Normal Motor strength exam: RUE: 5, LUE: 5, RLE: 5, LLE: 5 Skin exam: Present: warm, dry, intact, normal color. Absent: rash Course Vital Signs 06/05/22 22:00 Temperature 97.9 F Pulse Rate 102 H Respiratory 20 Rate Blood Pressure 90/64 O2 Sat by Pulse 96 Oximetry Medical Decision Making - Medical Decision Making Was pt. sent in by a medical professional or institution (, PA, REGULATORY AFFAIRS INTERN, urgent care, hospital, or correction...) When possible be specific @ -Yes, apparently family brought patient after [facility]. Did you speak to anyone other than the patient for history (EMS, parent, family, police, friend...)? What history was obtained from this source @ -No Did you review nursing and triage notes (agree or disagree)? Why? @ -I reviewed and agree with nursing and triage notes Were old charts reviewed (outside hosp., previous admission, EMS record, old EKG, old radiological studies, urgent care reports/EKG's, correction records)? Report findings @ -No old charts were reviewed Differential Diagnosis (chest pain, altered mental status, abdominal pain women, abdominal pain men, vaginal bleeding, weakness, fever, dyspnea, syncope, headache, dizziness, GI bleed, back pain, seizure, CVA, palpatations, mental health)? @ -Differential Headache: Migraine, tension, cluster, carbon monoxide, central venous thrombosis, pension karma temporal arteritis, acute closure glaucoma, intercranial hemorrhage, mastoiditis, sinusitis, head injury, this is not meant to be an all-inclusive list. EKG interpreted by me (3pts min.). @ -As above X-rays interpreted by me (1pt min.). @ -None done CT interpreted by me (1pt min.). @ -Yes, CT brain and C-spine is negative for acute process. U/S interpreted by me (1pt. min.). @ -None done What testing was considered but not performed or refused? (CT, X-rays, U/S, labs)? Why? @ -None What meds were considered but not given or refused? Why? @ -None Did you discuss the management of the patient with other professionals (professionals i.e. , PA, REGULATORY AFFAIRS INTERN, lab, RT, psych nurse, high school social science teacher, furniture and bedding inspector, teacher, flight radio officer, case management coordinator)? Give summary @ -No Was smoking cessation discussed for >3mins.? @ -No Was critical care preformed (if so, how long)? @ -No Were there social determinants of health that impacted care today? How? (Homelessness, low income, unemployed, alcoholism, drug addiction, transportation, low edu. Level, literacy, decrease access to med. care, senior care, rehab)? @ -No Was there de-escalation of care discussed even if they declined (Discuss DNR or withdrawal of care, Hospice)? DNR status @ -No What co-morbidities impacted this encounter? (DM, HTN, Smoking, COPD, CAD, Cancer, CVA, ARF, Chemo, Hep., AIDS, mental health diagnosis, sleep apnea, morbid obesity)? @ -None Was patient admitted / discharged? Hospital course, mention meds given and route, prescriptions, significant lab abnormalities, going to OR and other pertinent info. @ -Patient presenting after fall. BAT .193. There is no neurological deficit or weakness. He does not use blood thinners. CT of the brain and C-spine is negative for acute process. Patient observed closely in the emergency department. He is clinically sober and in stable medical condition for discharge. Undiagnosed new problem with uncertain prognosis? @ -No Drug Therapy requiring intensive monitoring for toxicity (Heparin, Nitro, Insulin, Cardizem)? @ -No Were any procedures done? @ -No Diagnosis/symptom? @ -fall, alcohol intoxication Acute, or Chronic, or Acute on Chronic? @ -acute Uncomplicated (without systemic symptoms) or Complicated (systemic symptoms)? @ -uncomplicated Side effects of treatment? @ -No Exacerbation, Progression, or Severe Exacerbation? @ -No Poses a threat to life or bodily function? How? (Chest pain, [place], MS, pneumonia, PE, COPD, DKA, ARF, appy, cholecystitis, CVA, Diverticulitis, Homicidal, Suicidal, threat to staff... and all critical care pts) @ -No Dr. Perez is my attending Disposition Clinical Impression: Fall, Alcohol intoxication Disposition: HOME SELF-CARE Condition: Good Instructions (If sedation given, give patient instructions): Fall Prevention (ED) Additional Instructions: It is important to stop drinking alcohol take Tylenol for any pain. Follow-up with primary care provider in one to 2 days. Return to the emergency department if you experience new, concerning, or worsening symptoms.. Is patient prescribed a controlled substance at d/c from ED?: No Referrals: Alonzo Cabrera MD [Primary Care Provider] - 1-2 days
[2022-06-05 22:57] VITALS: TEMP 97.9
--- NOTE | 2022-06-05 23:20 | CT ---
EXAMINATION TYPE: CT brain cspine wo con CT DLP: 1382.9 mGycm, Automated exposure control for dose reduction was used. DATE OF EXAM: 06/05/2022 11:14 PM COMPARISON: 05/28/2022 CLINICAL INDICATION:Male, 56 years old with history of fall; TECHNIQUE: Brain: Multiple axial CT images of the brain were obtained without IV contrast. Cspine: Axial CT images from the skull base to the inferior aspect of T2 we obtained without intraven ous contrast. Coronal and sagittal reformatted images were also reviewed. FINDINGS: Brain: Extra-axial spaces: No abnormal extra-axial fluid collections. Ventricular system: Within normal limits Cerebral parenchyma: No acute intraparenchymal hemorrhage or mass effect. The dominique-white junction is well differentiated. Cerebellum: Unremarkable. Mass effect: No evidence of midline shift. Intracranial vasculature: unremarkable Soft tissues: Normal. Calvarium/osseous structures: No depressed skull fracture. Paranasal sinuses and mastoid air cells: Clear. Visualized orbits: Orbital contents are intact. Cervical spine: Fracture: None. Osseous structures: Multilevel degenerative disc disease changes with endplate spurring and disc oste ophyte complex's. Vertebral alignment: Within normal limits. Spinal canal/Neural Foramina: No evidence of significant spinal canal narrowing. No evidence for sign ificant neural foraminal stenosis. Neck soft tissues: Prevertebral soft tissues are within normal limits. Other: The airway is patent. Mild paraseptal and centrilobular emphysema changes in the lung apices. IMPRESSION: 1. No acute intracranial process. 2. No evidence of cervical spine fracture. 3. Mild multilevel degenerative disc disease. 4. Mild emphysema.
[2022-06-06 02:00] VITALS: RESP 17
[2022-06-06] MEDS: SODIUM CHLORIDE 0.9% 1,000 ML IV ONE (02:04)
[2022-06-06 02:37] VITALS: PULSE 92
[2022-06-06 03:14] VITALS: BP 98/67
== END 2022-06-06 03:14 | disposition home or self-care (01) ==
LOC: EC 22:00
DX: F10.129 Alcohol abuse with intoxication, unspecified (principal); I10 Essential (primary) hypertension; E78.5 Hyperlipidemia, unspecified; F31.9 Bipolar disorder, unspecified; F17.200 Nicotine dependence, unspecified, uncomplicated; Z79.51 Long term (current) use of inhaled steroids; Z79.82 Long term (current) use of aspirin; Z79.899 Other long term (current) drug therapy; Z88.8 Allergy status to other drugs, medicaments and biological substances
CPT/HCPCS: 70450; 72125; 82075; 96360; 99284

== ENCOUNTER 2022-11-07 03:22 | Emergency (ER) | payer OTHER ==
[2022-11-07 03:29] VITALS: RESP 18
--- NOTE | 2022-11-07 03:38 | ED ---
Fall HPI - General Chief Complaint: Fall Stated Complaint: Fall Time Seen by Provider: 11/07/22 03:28 Source: patient, RN notes reviewed, old records reviewed Mode of arrival: EMS Limitations: no limitations - History of Present Illness Initial Comments: This is a 57-year-old male DF for evaluation today. Patient Dese for evaluation regards to fall. Fall from standing fall hitting the back of his head with minimal bleeding and abrasion. Unsure of loss of consciousness. Patient is brought in by EMS provides story history. Patient does admit alcohol intoxication today patient was seen by bystander laying on the ground after falling MD Complaint: fall -: hour(s) Fall From: standing Fall Witnessed: no Place Fall Occurred: home Loss of Consciousness: none Prolonged Down Time?: no Symptoms Prior to Fall: none Location: head, neck Severity: moderate Severity scale (1-10): 4 Quality: burning Context: tripped/slipped Associated Symptoms: denies - Related Data Home Medications Medication Instructions Recorded Confirmed Atorvastatin Calcium [Lipitor] 40 mg PO DAILY 10/08/16 05/28/22 Ergocalciferol (Vitamin D2) 50,000 unit PO QMONTHLY 01/31/18 05/28/22 [Drisdol (50,000 Iu)] Aspirin EC [Ecotrin Low Dose] 81 mg PO DAILY 05/18/20 05/28/22 Trihexyphenidyl [Artane] 2 mg PO BID 05/18/20 05/28/22 Albuterol Inhaler [Ventolin Hfa 1 - 2 puff INHALATION RT-QID PRN 11/17/20 05/28/22 Inhaler] Fluticasone Nasal [place] [Flonase 1 spr EA NOSTRIL DAILY 11/17/20 05/28/22 Nasal [place]] Budesonide-Formot 160-4.5 Mcg 2 puff INHALATION RT-BID 02/09/21 05/28/22 [Symbicort 160-4.5 Mcg Inhaler] Previous Rx's Medication Instructions Recorded Thiothixene [Navane] 2 mg PO BID #20 capsule 03/16/16 lisinopriL [Zestril] 20 mg PO DAILY #30 tab 04/03/16 Thiamine [Vitamin B-1] 100 mg PO BID-W/MEALS #30 tab 11/04/21 Allergies Allergy/AdvReac Type Severity Reaction Status Date / Time haloperidol [From Haldol] Allergy Anaphylaxis Verified 05/28/22 08:35 Review of Systems ROS Statement: Those systems with pertinent positive or pertinent negative responses have been documented in the HPI. ROS Other: All systems not noted in ROS Statement are negative. Past Medical History Past Medical History: Hyperlipidemia, Hypertension Additional Past Medical History / Comment(s): anxiety and bipolar disorder History of Any Multi-Drug Resistant Organisms: None Reported Past Surgical History: No Surgical Hx Reported Past Anesthesia/Blood Transfusion Reactions: No Reported Reaction Past Psychological History: Anxiety, Bipolar, Schizophrenia Smoking Status: Current every day smoker Past Alcohol Use History: Daily, Occasional Past Drug Use History: None Reported - Past Family History Mother Family Medical History: Myocardial Infarction ([place]) Additional Family Medical History / Comment(s): at age 54 Father History Unknown: Yes Family Medical History: Pneumonia General Exam Limitations: no limitations General appearance: alert, in no apparent distress Head exam: Present: normocephalic, normal inspection. Absent: atraumatic (Left occiput has abrasion) Eye exam: Present: normal appearance, PERRL, EOMI. Absent: scleral icterus, conjunctival injection, periorbital swelling ENT exam: Present: normal exam, mucous membranes moist Neck exam: Present: normal inspection. Absent: tenderness, meningismus, lymphadenopathy Respiratory exam: Present: normal lung sounds bilaterally. Absent: respiratory distress, wheezes, rales, rhonchi, stridor Cardiovascular Exam: Present: regular rate, normal rhythm, normal heart sounds. Absent: systolic murmur, diastolic murmur, rubs, gallop, clicks GI/Abdominal exam: Present: soft, normal bowel sounds. Absent: distended, tenderness, guarding, rebound, rigid Extremities exam: Present: normal inspection, full ROM, normal capillary refill. Absent: tenderness, pedal edema, joint swelling, calf tenderness Back exam: Present: normal inspection Neurological exam: Present: alert, oriented X3, CN II-XII intact Psychiatric exam: Present: normal affect, normal mood Skin exam: Present: warm, dry, intact, normal color. Absent: rash Course Vital Signs 11/07/22 11/07/22 11/07/22 03:24 05:55 09:34 Temperature 98 F 98.2 F Pulse Rate 96 90 90 Respiratory 18 18 18 Rate Blood Pressure 95/64 89/44 88/59 O2 Sat by Pulse 98 96 98 Oximetry - Reevaluation(s) Reevaluation #1: 11/07/22 03:38 Medical record is reviewed Reevaluation #2: 11/07/22 06:55 Patient has no complaints here in the ER Reevaluation #3: 11/07/22 06:55 Informed results questions answered Reevaluation #4: 11/07/22 03:38 Was pt. sent in by a medical professional or institution (ROBERTO Alemna, DRIER AND EVAPORATOR OPERATOR, urgent care, hospital, or [facility]...) When possible be specific @ -no Did you speak to anyone other than the patient for history (EMS, parent, family, police, friend...)? What history was obtained from this source @ -no Did you review nursing and triage notes (agree or disagree)? Why? @ -agree Are old charts reviewed (outside hosp., previous admission, EMS record, old EKG, old radiological studies, urgent care reports/EKG's, [facility] records)? Report findings @ -yes Differential Diagnosis (chest pain, altered mental status, abdominal pain women, abdominal pain men, vaginal bleeding, weakness, fever, dyspnea, syncope, headache, dizziness, GI bleed, back pain, seizure, CVA, palpatations, mental health, musculoskeletal)? @ -prior EKG interpreted by me (3pts min.). @ -no X-rays interpreted by me (1pt min.). @ -no CT interpreted by me (1pt min.). @ -yes U/S interpreted by me (1pt. min.). @ -no What testing was considered but not performed or refused? (CT, X-rays, U/S, labs)? Why? @ -none What meds were considered but not given or refused? Why? @ -none Did you discuss the management of the patient with other professionals (professionals i.e. ROBERTO Aleman, DRIER AND EVAPORATOR OPERATOR, lab, RT, psych nurse, nursing home social worker, seam stay stitcher, teacher, light armored vehicle officer, vocational case manager)? Give summary @ -no Was smoking cessation discussed for >3mins.? @ -no Was critical care preformed (if so, how long)? @ -no Were there social determinants of health that impacted care today? How? (Ho melessness, low income, unemployed, alcoholism, drug addiction, transportation, low edu. Level, literacy, decrease access to med. care, nursing home, rehab)? @ -none Was there de-escalation of care discussed even if they declined (Discuss DNR or withdrawal of care, Hospice)? DNR status @ -no What co-morbidities impacted this encounter? (DM, HTN, Smoking, COPD, CAD, Cancer, CVA, ARF, Chemo, Hep., AIDS, mental health diagnosis, sleep apnea, morbid obesity)? @ -none Was patient admitted / discharged? Hospital course, mention meds given and route, prescriptions, significant lab abnormalities, going to OR and other pertinent info. @ - 57 male the fall from standing falling backwards hitting his head, computed tomography scan is negative for acute disease. Patient is significantly intoxicated with sober up here in the emergency department, currently awake alert able to ambulate without difficulty. Patient does have abrasion with no significant laceration to his posterior scalp Discharge Undiagnosed new problem with uncertain prognosis? @ -no Drug Therapy requiring intensive monitoring for toxicity (Heparin, Nitro, Insulin, Cardizem)? @ -no Were any procedures done? @ -no Diagnosis/symptom? @ -Fall, head injury, posterior scalp with patient Acute, or Chronic, or Acute on Chronic? @ -Acute Uncomplicated (without systemic symptoms) or Complicated (systemic symptoms)? @ -Complicated Side effects of treatment? @ -no Exacerbation, Progression, or Severe Exacerbation? @ -exacerbation Poses a threat to life or bodily function? How? (Chest pain, [place], [place], pneumonia, PE, COPD, DKA, ARF, appy, cholecystitis, CVA, Diverticulitis, Homicidal, Suicidal, threat to staff... and all critical care pts) @ -yes fall with significant head injury Medical Decision Making - Medical Decision Making 57 male the fall from standing falling backwards hitting his head, computed tomography scan is negative for acute disease. Patient is significantly intoxicated with sober up here in the emergency department, currently awake alert able to ambulate without difficulty. Patient does have abrasion with no significant laceration to his posterior scalp - Radiology Data Radiology results: report reviewed (CT brain C-spine is negative for traumatic injury), image reviewed Disposition Clinical Impression: Alcohol intoxication, Fall, Head injury, Scalp abrasion Disposition: HOME SELF-CARE Condition: Fair Instructions (If sedation given, give patient instructions): Fall Prevention for Older Adults (ED), Head Injury (ED), Abrasion (ED) Is patient prescribed a controlled substance at d/c from ED?: No Referrals: Alonzo Cabrera MD [Primary Care Provider] - 1-2 days Time of Disposition: 07:30
[2022-11-07 06:02] VITALS: PULSE 90
--- NOTE | 2022-11-07 07:38 | CT ---
EXAM: CT Head Without Intravenous Contrast CLINICAL HISTORY: ITS.REASON CT Reason: pain TECHNIQUE: Axial computed tomography images of the head/brain without intravenous contrast. CTDI is 45.2 mGy and DLP is 1212 mGy-cm. This CT exam was performed using one or more of the following dose reduction techniques: automated exposure control, adjustment of the mA and/or kV according to patient size, and/or use of iterative reconstruction technique. COMPARISON: CT Head dated 06/05/22 FINDINGS: Brain: Unremarkable. No hemorrhage. No significant white matter disease. No edema. Ventricles: Unremarkable. No ventriculomegaly. Bones/joints: Fracture deformity of the right anterior maxillary sinus wall. Mild fracture deformity of the right zygomatic arch. Age- indeterminate. Soft tissues: Unremarkable. Sinuses: Mild paranasal sinus mucosal thickening. Mastoid air cells: Unremarkable as visualized. No mastoid effusion. IMPRESSION: 1. No evidence of acute intracranial abnormality or skull fracture. 2. Fracture deformity of the right anterior maxillary sinus wall. Mild fracture deformity of the right zygomatic arch. Age-indeterminate. EXAM: CT Cervical Spine Without Intravenous Contrast CLINICAL HISTORY: ITS.REASON CT Reason: pain TECHNIQUE: Axial computed tomography images of the cervical spine without intravenous contrast. CTDI is 9.2 mGy and DLP is 267.5 mGy-cm. This CT exam was performed using one or more of the following dose reduction techniques: automated exposure control, adjustment of the mA and/or kV according to patient size, and/or use of iterative reconstruction technique. COMPARISON: CT Cervical Spine dated 06/05/2022 FINDINGS: Vertebrae: Unremarkable. No acute fracture. Discs/spinal canal/neural foramina: Multilevel degenerative changes. Prominent anterior osteophytes and small disc osteophyte complexes. No severe central canal stenosis. Soft tissues: Unremarkable. Lung apices: Emphysema. IMPRESSION: No evidence of acute fracture or malalignment.
[2022-11-07 09:37] VITALS: BP 88/59; TEMP 98.2
== END 2022-11-07 09:50 | disposition home or self-care (01) ==
LOC: EC 03:22
DX: S00.01XA Abrasion of scalp, initial encounter (principal); F10.129 Alcohol abuse with intoxication, unspecified; I10 Essential (primary) hypertension; E78.5 Hyperlipidemia, unspecified; F17.200 Nicotine dependence, unspecified, uncomplicated; Z79.82 Long term (current) use of aspirin; Z79.899 Other long term (current) drug therapy; Z79.51 Long term (current) use of inhaled steroids; Z88.8 Allergy status to other drugs, medicaments and biological substances; W01.0XXA Fall on same level from slipping, tripping and stumbling without subsequent striking against object, initial encounter; Y92.009 Unspecified place in unspecified non-institutional (private) residence as the place of occurrence of the external cause
CPT/HCPCS: 70450; 72125; 99285

== ENCOUNTER 2023-02-28 00:27 | Emergency (ER) | payer OTHER ==
[2023-02-28 01:03] VITALS: RESP 18; TEMP 98
--- NOTE | 2023-02-28 09:25 | ED ---
General Adult HPI - General Chief complaint: Headache Stated complaint: Dizziness, Right Eye Blindness Time Seen by Provider: 02/28/23 06:15 Source: patient, RN notes reviewed Mode of arrival: ambulatory Limitations: no limitations - History of Present Illness Initial comments: This is a 57-year-old male with past medical history significant for homelessness presents the emergency department with a chief complaint of right eye problem. Patient reports that he has had right eye blurred vision for the extremity 1 year. He does report having a "brain bleed" a year ago and has had intermittent vision changes over the last year. He reports that nothing has made it worse and he has been procrastinating which has not caused him to evaluated for this. He denies significant lightheadedness, headache or nausea or vomiting. Denies any injury or trauma. - Related Data Home Medications Medication Instructions Recorded Confirmed Atorvastatin Calcium [Lipitor] 40 mg PO DAILY 10/08/16 05/28/22 Ergocalciferol (Vitamin D2) 50,000 unit PO QMONTHLY 01/31/18 05/28/22 [Drisdol (50,000 Iu)] Aspirin EC [Ecotrin Low Dose] 81 mg PO DAILY 05/18/20 05/28/22 Trihexyphenidyl [Artane] 2 mg PO BID 05/18/20 05/28/22 Albuterol Inhaler [Ventolin Hfa 1 - 2 puff INHALATION RT-QID PRN 11/17/20 05/28/22 Inhaler] Fluticasone Nasal [place] [Flonase 1 spr EA NOSTRIL DAILY 11/17/20 05/28/22 Nasal [place]] Budesonide-Formot 160-4.5 Mcg 2 puff INHALATION RT-BID 02/09/21 05/28/22 [Symbicort 160-4.5 Mcg Inhaler] Previous Rx's Medication Instructions Recorded Thiothixene [Navane] 2 mg PO BID #20 capsule 03/16/16 lisinopriL [Zestril] 20 mg PO DAILY #30 tab 04/03/16 Thiamine [Vitamin B-1] 100 mg PO BID-W/MEALS #30 tab 11/04/21 Allergies Allergy/AdvReac Type Severity Reaction Status Date / Time haloperidol [From Haldol] Allergy Anaphylaxis Verified 02/28/23 00:39 Review of Systems ROS Statement: Those systems with pertinent positive or pertinent negative responses have been documented in the HPI. ROS Other: All systems not noted in ROS Statement are negative. Past Medical History Past Medical History: Hyperlipidemia, Hypertension Additional Past Medical History / Comment(s): anxiety and bipolar disorder History of Any Multi-Drug Resistant Organisms: None Reported Past Surgical History: No Surgical Hx Reported Past Anesthesia/Blood Transfusion Reactions: No Reported Reaction Past Psychological History: Anxiety, Bipolar, Schizophrenia Smoking Status: Current every day smoker Past Alcohol Use History: Daily, Heavy Past Drug Use History: None Reported - Past Family History Mother Family Medical History: Myocardial Infarction ([place]) Additional Family Medical History / Comment(s): at age 54 Father History Unknown: Yes Family Medical History: Pneumonia General Exam - General Exam Comments Initial Comments: General: Alert, in no acute distress Head: atraumatic normocephalic. Eyes PERRL, EOMI intact, mucous membranes moist Respiratory: Lungs clear to auscultation bilaterally Cardiovascular: Heart rate regular rate and rhythm Abdominal: Soft without guarding or rebound Extremities: Normal inspection with full range of motion and normal capillary refill Neuroogic: alert and oriented 3, CN II-XII intact, able to ambulate with steady gait Skin: warm dry and intact with normal color Limitations: no limitations Course Vital Signs 02/28/23 02/28/23 00:37 09:30 Temperature 98 F 98 F Pulse Rate 97 91 Respiratory 18 18 Rate Blood Pressure 116/71 105/71 O2 Sat by Pulse 96 98 Oximetry - Reevaluation(s) Reevaluation #1: 02/28/23 07:01 initial history and physical exam performed. Patient resting comfortably in the ER bed 29 02/28/23 09:01 patient verbalized that he would like to be discharged home at this time. Medical Decision Making - Medical Decision Making Was pt. sent in by a medical professional or institution (, PA, FINISHED GOODS STOCK CLERK, urgent care, hospital, or long term...) When possible be specific @ -[No] Did you speak to anyone other than the patient for history (EMS, parent, family, police, friend...)? What history was obtained from this source @ -[No] Did you review nursing and triage notes (agree or disagree)? Why? @ -[I reviewed and agree with nursing and triage notes] Were old charts reviewed (outside hosp., previous admission, EMS record, old EKG, old radiological studies, urgent care reports/EKG's, long term records)? Report findings @ -[No old charts were reviewed] Differential Diagnosis (chest pain, altered mental status, abdominal pain women, abdominal pain men, vaginal bleeding, weakness, fever, dyspnea, syncope, headache, dizziness, GI bleed, back pain, seizure, CVA, palpatations, mental health, musculoskeletal)? @ -[not applicable] EKG interpreted by me (3pts min.). @ -[As above] X-rays interpreted by me (1pt min.). @ -[None done] CT interpreted by me (1pt min.). @ -[None done] U/S interpreted by me (1pt. min.). @ -[None done] What testing was considered but not performed or refused? (CT, X-rays, U/S, labs)? Why? @ -[None] What meds were considered but not given or refused? Why? @ -[None] Did you discuss the management of the patient with other professionals (professionals i.e. , PA, FINISHED GOODS STOCK CLERK, lab, RT, psych nurse, social services technician, welt sole layer, teacher, licensed loan officer, case management social worker)? Give summary @ -[No] Was smoking cessation discussed for >3mins.? @ -[No] Was critical care preformed (if so, how long)? @ -[No] Were there social determinants of health that impacted care today? How? (Homelessness, low income, unemployed, alcoholism, drug addiction, transportation, low edu. Level, literacy, decrease access to med. care, [facility], rehab)? @ -[No] Was there de-escalation of care discussed even if they declined (Discuss DNR or withdrawal of care, Hospice)? DNR status @ -[No] What co-morbidities impacted this encounter? (DM, HTN, Smoking, COPD, CAD, Cancer, CVA, ARF, Chemo, Hep., AIDS, mental health diagnosis, sleep apnea, morbid obesity)? @ -[None] Was patient admitted / discharged? Hospital course, mention meds given and route, prescriptions, significant lab abnormalities, going to OR and other pertinent info. @ -Discharged. This is a 57-year-old male presents emergency department with a chief complaint of vision problem. Patient had a thorough history and physical exam performed. Physical exam is unremarkable. Pupils are equal and reactive. Patient's visual acuity is 20/200 in the right eye. Patient was offered imaging however patient's vision problems are chronic in nature and intermittent over the last year. Patient verbalized that he would like to be discharged home after sleeping in the emergency department after 6 hours. Discharged in stable condition. Return precautions were discussed at length. Case is discussed with Dr. Ash, ED attending who agrees with plan of care Undiagnosed new problem with uncertain prognosis? @ -[No] Drug Therapy requiring intensive monitoring for toxicity (Heparin, Nitro, Insulin, Cardizem)? @ -[No] Were any procedures done? @ -[No] Diagnosis/symptom? @ -Right eye problem - Homeless Acute, or Chronic, or Acute on Chronic? @ Acute Uncomplicated (without systemic symptoms) or Complicated (systemic symptoms)? @ -Uncomplicated Side effects of treatment? @ -[No] Exacerbation, Progression, or Severe Exacerbation? @ -[No] Poses a threat to life or bodily function? How? (Chest pain, [place], [place], pneumonia, PE, COPD, DKA, ARF, appy, cholecystitis, CVA, Diverticulitis, Homicidal, Suicidal, threat to staff... and all critical care pts) @ -Low likelihood Disposition Clinical Impression: Blurry vision, Homelessness Disposition: HOME SELF-CARE Condition: Stable Instructions (If sedation given, give patient instructions): Blurred Vision (ED) Additional Instructions: Please monitor your symptoms closely Please return if worsening symptoms Is patient prescribed a controlled substance at d/c from ED?: No Referrals: Alonzo Cabrera MD [Primary Care Provider] - 1-2 days Time of Disposition: 09:24
[2023-02-28 09:48] VITALS: BP 105/71; PULSE 91
== END 2023-02-28 13:11 | disposition home or self-care (01) ==
LOC: EC 00:27
DX: H53.8 Other visual disturbances (principal); Z59.00 Homelessness unspecified; E78.5 Hyperlipidemia, unspecified; F17.200 Nicotine dependence, unspecified, uncomplicated; I10 Essential (primary) hypertension; F41.9 Anxiety disorder, unspecified; F31.9 Bipolar disorder, unspecified; Z79.899 Other long term (current) drug therapy; Z88.8 Allergy status to other drugs, medicaments and biological substances
CPT/HCPCS: 99283

== ENCOUNTER 2023-03-07 19:35 | Observation (INO) | payer OTHER ==
--- NOTE | 2023-03-07 20:55 | ED ---
General Adult HPI - General Chief complaint: Alcohol Stated complaint: ETOH Time Seen by Provider: 03/07/23 20:08 Source: patient, EMS, RN notes reviewed Mode of arrival: EMS Limitations: no limitations - History of Present Illness Initial comments: 57-year-old male presents to the emergency department for alcohol intoxication. Patient states that he drinks daily. He reports drinking 10-12 24 ounce beers daily. He states that today he believes he drank around 4. Last drink was 2 hours prior to arrival. He states that he is homeless and currently living under a porch. Patient states that he would like to get sober. - Related Data Home Medications Medication Instructions Recorded Confirmed Atorvastatin Calcium [Lipitor] 40 mg PO DAILY 10/08/16 05/28/22 Ergocalciferol (Vitamin D2) 50,000 unit PO QMONTHLY 01/31/18 05/28/22 [Drisdol (50,000 Iu)] Aspirin EC [Ecotrin Low Dose] 81 mg PO DAILY 05/18/20 05/28/22 Trihexyphenidyl [Artane] 2 mg PO BID 05/18/20 05/28/22 Albuterol Inhaler [Ventolin Hfa 1 - 2 puff INHALATION RT-QID PRN 11/17/20 05/28/22 Inhaler] Fluticasone Nasal [place] [Flonase 1 spr EA NOSTRIL DAILY 11/17/20 05/28/22 Nasal [place]] Budesonide-Formot 160-4.5 Mcg 2 puff INHALATION RT-BID 02/09/21 05/28/22 [Symbicort 160-4.5 Mcg Inhaler] Previous Rx's Medication Instructions Recorded Thiothixene [Navane] 2 mg PO BID #20 capsule 03/16/16 lisinopriL [Zestril] 20 mg PO DAILY #30 tab 04/03/16 Thiamine [Vitamin B-1] 100 mg PO BID-W/MEALS #30 tab 11/04/21 Allergies Allergy/AdvReac Type Severity Reaction Status Date / Time haloperidol [From Haldol] Allergy Anaphylaxis Verified 03/07/23 19:49 Review of Systems ROS Statement: Those systems with pertinent positive or pertinent negative responses have been documented in the HPI. ROS Other: All systems not noted in ROS Statement are negative. Past Medical History Past Medical History: Hyperlipidemia, Hypertension Additional Past Medical History / Comment(s): anxiety and bipolar disorder History of Any Multi-Drug Resistant Organisms: None Reported Past Surgical History: No Surgical Hx Reported Past Anesthesia/Blood Transfusion Reactions: No Reported Reaction Past Psychological History: Anxiety, Bipolar, Schizophrenia Smoking Status: Current every day smoker Past Alcohol Use History: Daily, Heavy Past Drug Use History: None Reported - Past Family History Mother Family Medical History: Myocardial Infarction ([place]) Additional Family Medical History / Comment(s): at age 54 Father History Unknown: Yes Family Medical History: Pneumonia General Exam Limitations: no limitations General appearance: alert, in no apparent distress Head exam: Present: atraumatic, normocephalic, normal inspection Eye exam: Present: normal appearance, PERRL, EOMI. Absent: scleral icterus, co njunctival injection, periorbital swelling ENT exam: Present: normal exam, mucous membranes moist Neck exam: Present: normal inspection. Absent: tenderness, meningismus, lymphadenopathy Respiratory exam: Present: normal lung sounds bilaterally. Absent: respiratory distress, wheezes, rales, rhonchi, stridor Cardiovascular Exam: Present: regular rate, normal rhythm, normal heart sounds. Absent: systolic murmur, diastolic murmur, rubs, gallop, clicks GI/Abdominal exam: Present: soft, normal bowel sounds. Absent: distended, tenderness, guarding, rebound, rigid Extremities exam: Present: normal inspection, full ROM, normal capillary refill. Absent: tenderness, pedal edema, joint swelling, calf tenderness Back exam: Present: normal inspection Neurological exam: Present: alert, oriented X3 Psychiatric exam: Present: normal affect, normal mood Skin exam: Present: warm, dry, intact, normal color. Absent: rash Course Vital Signs 03/07/23 03/07/23 03/07/23 19:42 21:00 23:00 Temperature 97.0 F L Pulse Rate 84 Respiratory 18 Rate Blood Pressure 110/87 104/73 86/65 O2 Sat by Pulse 100 Oximetry 03/07/23 03/08/23 23:58 01:08 Temperature Pulse Rate 98 86 Respiratory 20 14 Rate Blood Pressure 88/59 95/62 O2 Sat by Pulse 96 97 Oximetry Medical Decision Making - Medical Decision Making Was pt. sent in by a medical professional or institution (, PA, BILINGUAL SPEECH LANGUAGE PATHOLOGIST, urgent ca re, hospital, or usp...) When possible be specific @ -No Did you speak to anyone other than the patient for history (EMS, parent, family, police, friend...)? What history was obtained from this source @ -No Did you review nursing and triage notes (agree or disagree)? Why? @ -I reviewed and agree with nursing and triage notes Were old charts reviewed (outside hosp., previous admission, EMS record, old EKG, old radiological studies, urgent care reports/EKG's, usp records)? Report findings @ -No old charts were reviewed Differential Diagnosis (chest pain, altered mental status, abdominal pain women, abdominal pain men, vaginal bleeding, weakness, fever, dyspnea, syncope, headache, dizziness, GI bleed, back pain, seizure, CVA, palpatations, mental health, musculoskeletal)? @ -Alcohol intoxication, alcohol withdrawal, this list is not all inclusive EKG interpreted by me (3pts min.). @ -EKG at 24 6 shows sinus rhythm rate 84, CA 183, QRS 110, QTQTc 3743:15 X-rays interpreted by me (1pt min.). @ -None done CT interpreted by me (1pt min.). @ -None done U/S interpreted by me (1pt. min.). @ -None done What testing was considered but not performed or refused? (CT, X-rays, U/S, labs)? Why? @ -None What meds were considered but not given or refused? Why? @ -None Did you discuss the management of the patient with other professionals (professionals i.e. , PA, BILINGUAL SPEECH LANGUAGE PATHOLOGIST, lab, RT, psych nurse, social work assistant, registered nurse surgical services, teacher, artillery officer, family service caseworker)? Give summary @ -Case discussed with Dr. Cabrera who is accepting the admission. Was smoking cessation discussed for >3mins.? @ -No Was critical care preformed (if so, how long)? @ -No Were there social determinants of health that impacted care today? How? (Homelessness, low income, unemployed, alcoholism, drug addiction, transportation, low edu. Level, literacy, decrease access to med. care, senior care, rehab)? @ -No Was there de-escalation of care discussed even if they declined (Discuss DNR or withdrawal of care, Hospice)? DNR status @ -No What co-morbidities impacted this encounter? (DM, HTN, Smoking, COPD, CAD, Cancer, CVA, ARF, Chemo, Hep., AIDS, mental health diagnosis, sleep apnea, morbid obesity)? @ -None Was patient admitted / discharged? Hospital course, mention meds given and route, prescriptions, significant lab abnormalities, going to OR and other per tinent info. @ -Admitted. Patient presented to the emergency department for alcohol intoxication. Laboratory studies obtained.CBC shows WBC 10.8, hemoglobin 14.5; CMP shows sodium 135, potassium 4.6, phosphorus 4.2, magnesium 2.1; UA negative for nitrite, leukocyte esterase; serum alcohol 211. Case discussed with Dr. Cabrera who is accepting of the admission for alcohol intoxication. CIWA assessment ordered. Patient received 2L of NS. Patient stable at time of admission. Case discussed with Dr. Kemp Undiagnosed new problem with uncertain prognosis? @ -No Drug Therapy requiring intensive monitoring for toxicity (Heparin, Nitro, Insulin, Cardizem)? @ -No Were any procedures done? @ -No Diagnosis/symptom? @ -alcohol intoxication Acute, or Chronic, or Acute on Chronic? @ -acute Uncomplicated (without systemic symptoms) or Complicated (systemic symptoms)? @ -uncomplicated Side effects of treatment? @ -No Exacerbation, Progression, or Severe Exacerbation? @ -No Poses a threat to life or bodily function? How? (Chest pain, [place], [place], pneumonia, PE, COPD, DKA, ARF, appy, cholecystitis, CVA, Diverticulitis, Homicidal, Suicidal, threat to staff... and all critical care pts) @ -No - Lab Data Result diagrams: 03/07/23 20:39 03/07/23 20:39 Lab Results 03/07/23 03/07/23 03/07/23 Range/Units 20:39 20:39 20:39 WBC 10.8 H (3.8-10.6) k/uL RBC 4.35 (4.30-5.90) m/uL Hgb 14.5 (13.0-17.5) gm/dL Hct 43.4 (39.0-53.0) % MCV 99.7 (80.0-100.0) fL MCH 33.2 (25.0-35.0) pg MCHC 33.3 (31.0-37.0) g/dL RDW 13.0 (11.5-15.5) % Plt Count 263 (150-450) k/uL MPV 8.4 Neutrophils % 41 % Lymphocytes % 44 % Monocytes % 9 % Eosinophils % 3 % Basophils % 1 % Neutrophils # 4.4 (1.3-7.7) k/uL Lymphocytes # 4.7 (1.0-4.8) k/uL Monocytes # 1.0 (0-1.0) k/uL Eosinophils # 0.3 (0-0.7) k/uL Basophils # 0.2 (0-0.2) k/uL PT 9.8 L (10.0-12.5) sec INR 0.9 (<1.2) Sodium (137-145) mmol/L Potassium (3.5-5.1) mmol/L Chloride (98-107) mmol/L Carbon Dioxide (22-30) mmol/L Anion Gap mmol/L BUN (9-20) mg/dL Creatinine (0.66-1.25) mg/dL Est GFR (CKD-EPI)AfAm (>60 ml/min/1.73 sqM) Est GFR (CKD-EPI)NonAf (>60 ml/min/1.73 sqM) Glucose (74-99) mg/dL Calcium (8.4-10.2) mg/dL Phosphorus (2.5-4.5) mg/dL Magnesium (1.6-2.3) mg/dL Total Bilirubin (0.2-1.3) mg/dL AST (17-59) U/L ALT (4-49) U/L Alkaline Phosphatase (38-126) U/L Total Protein (6.3-8.2) g/dL Albumin (3.5-5.0) g/dL Amylase (30-110) U/L Lipase (23-300) U/L Urine Color Colorless Urine Appearance Clear (Clear) Urine pH 5.0 (5.0-8.0) Ur Specific [place] 1.002 (1.001-1.035) Urine Protein Negative (Negative) Urine Glucose (UA) Negative (Negative) Urine Ketones Negative (Negative) Urine Blood Negative (Negative) Urine Nitrite Negative (Negative) Urine Bilirubin Negative (Negative) Urine Urobilinogen <2.0 (<2.0) mg/dL Ur Leukocyte Esterase Negative (Negative) Urine Opiates Screen Not Detected (NotDetected) Ur Oxycodone Screen Not Detected (NotDetected) Urine Methadone Screen Not Detected (NotDetected) Ur Barbiturates Screen Not Detected (NotDetected) U Tricyclic Antidepress Not Detected (NotDetected) Ur Phencyclidine Scrn Not Detected (NotDetected) Ur Amphetamines Screen Not Detected (NotDetected) U Methamphetamines Scrn Not Detected (NotDetected) U Benzodiazepines Scrn Not Detected (NotDetected) Urine Cocaine Screen Not Detected (NotDetected) U Marijuana (THC) Screen Not Detected (NotDetected) Serum Alcohol mg/dL 03/07/23 Range/Units 20:39 WBC (3.8-10.6) k/uL RBC (4.30-5.90) m/uL Hgb (13.0-17.5) gm/dL Hct (39.0-53.0) % MCV (80.0-100.0) fL MCH (25.0-35.0) pg MCHC (31.0-37.0) g/dL RDW (11.5-15.5) % Plt Count (150-450) k/uL MPV Neutrophils % % Lymphocytes % % Monocytes % % Eosinophils % % Basophils % % Neutrophils # (1.3-7.7) k/uL Lymphocytes # (1.0-4.8) k/uL Monocytes # (0-1.0) k/uL Eosinophils # (0-0.7) k/uL Basophils # (0-0.2) k/uL PT (10.0-12.5) sec INR (<1.2) Sodium 135 L (137-145) mmol/L Potassium 4.6 (3.5-5.1) mmol/L Chloride 100 (98-107) mmol/L Carbon Dioxide 22 (22-30) mmol/L Anion Gap 13 mmol/L BUN 11 (9-20) mg/dL Creatinine 0.55 L (0.66-1.25) mg/dL Est GFR (CKD-EPI)AfAm >90 (>60 ml/min/1.73 sqM) Est GFR (CKD-EPI)NonAf >90 (>60 ml/min/1.73 sqM) Glucose 92 (74-99) mg/dL Calcium 9.4 (8.4-10.2) mg/dL Phosphorus 4.2 (2.5-4.5) mg/dL Magnesium 2.1 (1.6-2.3) mg/dL Total Bilirubin 0.4 (0.2-1.3) mg/dL AST 32 (17-59) U/L ALT 22 (4-49) U/L Alkaline Phosphatase 53 (38-126) U/L Total Protein 7.5 (6.3-8.2) g/dL Albumin 4.3 (3.5-5.0) g/dL Amylase 75 (30-110) U/L Lipase 214 (23-300) U/L Urine Color Urine Appearance (Clear) Urine pH (5.0-8.0) Ur Specific [place] (1.001-1.035) Urine Protein (Negative) Urine Glucose (UA) (Negative) Urine Ketones (Negative) Urine Blood (Negative) Urine Nitrite (Negative) Urine Bilirubin (Negative) Urine Urobilinogen (<2.0) mg/dL Ur Leukocyte Esterase (Negative) Urine Opiates Screen (NotDetected) Ur Oxycodone Screen (NotDetected) Urine Methadone Screen (NotDetected) Ur Barbiturates Screen (NotDetected) U Tricyclic Antidepress (NotDetected) Ur Phencyclidine Scrn (NotDetected) Ur Amphetamines Screen (NotDetected) U Methamphetamines Scrn (NotDetected) U Benzodiazepines Scrn (NotDetected) Urine Cocaine Screen (NotDetected) U Marijuana (THC) Screen (NotDetected) Serum Alcohol 211 H* mg/dL Disposition Clinical Impression: Alcohol intoxication Disposition: ADMITTED IP TO THIS [facility] Condition: Stable Is patient prescribed a controlled substance at d/c from ED?: No
[2023-03-07 21:04] LABS: Basophils # (A) 0.2 k/uL (0-0.2); Basophils % (A) 1 %; Eosinophils # (A) 0.3 k/uL (0-0.7); Eosinophils % (A) 3 %; HCT 43.4 % (39.0-53.0); HGB 14.5 gm/dL (13.0-17.5); Lymphocytes # (A) 4.7 k/uL (1.0-4.8); Lymphocytes % (A) 44 %; MCH 33.2 pg (25.0-35.0); MCHC 33.3 g/dL (31.0-37.0); MCV 99.7 fL (80.0-100.0); Mean Platelet Volume 8.4; Monocytes % (A) 9 %; Neutrophils # (A) 4.4 k/uL (1.3-7.7); Neutrophils % (A) 41 %; Platelet Count 263 k/uL (150-450); RBC 4.35 m/uL (4.30-5.90); WBC 10.8 k/uL (3.8-10.6)
[2023-03-07 21:08] LABS: Appearance,Urine Clear (Clear); Bilirubin,Urine Negative (Negative); Blood,Urine Negative (Negative); Color,Urine Colorless; Glucose,Urine (UA) Negative (Negative); Ketones,Urine Negative (Negative); Leukocyte Esterase,Urine Negative (Negative); Nitrite,Urine Negative (Negative); Protein,Urine Negative (Negative); Specific Gravity,Urine 1.002 (1.001-1.035); Urobilinogen,Urine <2.0 mg/dL (<2.0)
[2023-03-07 21:19] LABS: Amphetamine Screen,Urine Not Detected (NotDetected); Barbiturate Screen,Urine Not Detected (NotDetected); Benzodiazepines Screen,Urine Not Detected (NotDetected); Cocaine Screen,Urine Not Detected (NotDetected); Methadone Screen, Urine Not Detected (NotDetected); Opiate Screen,Urine Not Detected (NotDetected); Oxycodone Screen, Urine Not Detected (NotDetected); Phencyclidine Screen,Urine Not Detected (NotDetected); Tricyclic Antidepressant,Urine Not Detected (NotDetected); Urn Cannabinoid Scrn Not Detected (NotDetected)
[2023-03-07 21:21] LABS: INR 0.9 (<1.2); Prothrombin Time 9.8 sec (10.0-12.5)
[2023-03-07 21:22] LABS: ALT 22 U/L (4-49); AST 32 U/L (17-59); African American GFR (CKD) >90 (>60 ml/min/1.73 sqM); Albumin 4.3 g/dL (3.5-5.0); Alkaline Phosphatase 53 U/L (38-126); Amylase 75 U/L (30-110); Anion Gap 13 mmol/L; Blood Urea Nitrogen 11 mg/dL (9-20); Calcium 9.4 mg/dL (8.4-10.2); Carbon Dioxide 22 mmol/L (22-30); Chloride 100 mmol/L (98-107); Glucose 92 mg/dL (74-99); Lipase 214 U/L (23-300); Magnesium 2.1 mg/dL (1.6-2.3); Non-African American GFR(CKD) >90 (>60 ml/min/1.73 sqM); Phosphorus 4.2 mg/dL (2.5-4.5); Potassium 4.6 mmol/L (3.5-5.1); Sodium 135 mmol/L (137-145); Total Bilirubin 0.4 mg/dL (0.2-1.3); Total Protein 7.5 g/dL (6.3-8.2)
[2023-03-07 21:57] LABS: Alcohol 211 mg/dL
[2023-03-08] MEDS ORDERED: SODIUM CHLORIDE 0.9% 2,000 ML IV ONE (00:04)
[2023-03-08] MEDS ORDERED: NALOXONE 0.4 MG/ML 1 ML VIAL IV PRN (00:29)
[2023-03-08] MEDS ORDERED: MORPHINE SULFATE 4 MG/ML SYRINGE IV PRN (00:29)
[2023-03-08] MEDS ORDERED: IBUPROFEN 400 MG TAB PO PRN (00:29)
[2023-03-08] MEDS ORDERED: KETOROLAC 15 MG/ML 1 ML VIAL IVP PRN (00:29)
[2023-03-08] MEDS ORDERED: LORazepam 1 MG TAB PO PRN ×3 (00:34)
[2023-03-08] MEDS ORDERED: LORazepam 0.5 MG TAB PO PRN (00:34)
[2023-03-08] MEDS ORDERED: LORazepam 2 MG/ML INJ IV PRN ×3 (00:34)
[2023-03-08] MEDS: SODIUM CHLORIDE 0.9% 1,000 ML IV SCH ×2 (01:07→15:50)
[2023-03-08] MEDS: THIOTHIXENE 2 MG PO SCH (19:42)
[2023-03-08] MEDS: TRIHEXYPHENIDYL 2 MG TAB PO SCH (19:43)
--- NOTE | 2023-03-09 01:02 | HP ---
HISTORY AND PHYSICAL CHIEF COMPLAINT: Acute alcohol intoxication and chronic alcoholism. HISTORY OF PRESENT ILLNESS: This is another admission for this chronic alcoholic, schizophrenic. He came to the emergency room intoxicated and requesting help for getting him off his alcohol. He was admitted for detox. REVIEW OF SYSTEMS: He denies any seizures, blackouts, chest pain, abdominal pain, melena, hematochezia, etc. Has had no headaches, focal neurologic deficits, diplopia, chest pain, abdominal pain, etc. Past medical history, family history, personal and social histories are all otherwise unremarkable and noncontributory. MEDICATIONS: He does take psychiatric medications for his schizophrenia from [facility]. PHYSICAL EXAMINATION: VITAL SIGNS: Normal. HEAD, EARS, EYES, NOSE, MOUTH, AND THROAT: Normal. CHEST: Clear. CARDIAC: Normal. ABDOMEN: Soft and nontender. EXTREMITIES: Normal. NEUROLOGICAL: He is intact. He was not in DTs. IMPRESSION: 1. Acute alcohol intoxication. 2. Chronic alcoholism. 3. Schizophrenia. 4. Chronic obstructive pulmonary disease. 5. Impending DTs. PLAN: 1. Bed rest. 2. IV fluids. 3. CIWA protocol. SHIRLEY / DEL: [id number] /
[2023-03-09] MEDS: SODIUM CHLORIDE 0.9% 1,000 ML IV SCH ×2 (03:33→15:38)
[2023-03-09] MEDS: ATORVASTATIN 40 MG TAB PO SCH (08:51)
[2023-03-09] MEDS: ASPIRIN 81 MG PO SCH (08:52)
[2023-03-09] MEDS: TRIHEXYPHENIDYL 2 MG TAB PO SCH ×2 (08:52→20:10)
[2023-03-09] MEDS: THIOTHIXENE 2 MG PO SCH ×2 (08:52→19:22)
[2023-03-09] MEDS: lisinopriL 20 MG TAB PO SCH (08:52)
[2023-03-10] MEDS: SODIUM CHLORIDE 0.9% 1,000 ML IV SCH ×2 (05:05→20:01)
[2023-03-10] MEDS: lisinopriL 20 MG TAB PO SCH (08:50)
[2023-03-10] MEDS: ATORVASTATIN 40 MG TAB PO SCH (08:50)
[2023-03-10] MEDS: ASPIRIN 81 MG PO SCH (08:50)
[2023-03-10] MEDS: TRIHEXYPHENIDYL 2 MG TAB PO SCH ×2 (08:51→20:02)
[2023-03-10] MEDS: THIOTHIXENE 2 MG PO SCH ×2 (08:52→20:01)
[2023-03-10 22:04] VITALS: RESP 16
[2023-03-11 02:35] VITALS: TEMP 98
--- NOTE | 2023-03-11 03:40 | PN ---
PROGRESS NOTE DATE OF SERVICE: 03/10/2023 CHIEF COMPLAINT: Acute alcohol intoxication and chronic alcoholism. SUBJECTIVE: This gentleman is doing well. He is not in DTs. He is still slightly shaky. PHYSICAL EXAMINATION: VITAL SIGNS: Normal. CHEST: Clear. CARDIAC: Normal. ABDOMEN: Soft, nontender. IMPRESSION: 1. Acute alcohol intoxication. 2. Chronic alcoholism. 3. Schizophrenia. 4. COPD. PLAN: Possibly discharge tomorrow. MMODL / IJN: [id number] /
[2023-03-11] MEDS: SODIUM CHLORIDE 0.9% 1,000 ML IV SCH (07:41)
[2023-03-11] MEDS: lisinopriL 20 MG TAB PO SCH (08:29)
[2023-03-11] MEDS: TRIHEXYPHENIDYL 2 MG TAB PO SCH (08:29)
[2023-03-11] MEDS: ASPIRIN 81 MG PO SCH (08:29)
[2023-03-11] MEDS: ATORVASTATIN 40 MG TAB PO SCH (08:29)
[2023-03-11] MEDS: THIOTHIXENE 2 MG PO SCH (08:32)
[2023-03-11 08:43] VITALS: BP 102/65; PULSE 80
--- NOTE | 2023-03-12 11:02 | DS ---
DISCHARGE SUMMARY CHIEF COMPLAINT: Acute alcohol intoxication. HISTORY OF PRESENT ILLNESS AND PHYSICAL EXAM: Details of this man's history and physical can be found in the initial workup. LABORATORY STUDIES: While he is in a hospital, he had laboratory studies, details of which can be found in the laboratory section of his chart. COURSE IN THE HOSPITAL: After admission, he was placed on bedrest, started his fluids and placed on CIWA protocol. He did not have a significant problem with DTs. He was up and eating without any tremors. It was felt that he could go home on . He will go home on his usual activity, diet, medication. He will be followed up in several days. FINAL DIAGNOSES: 1. Acute alcohol intoxication. 2. Chronic alcoholism. 3. Chronic obstructive pulmonary disease. 4. Schizophrenia. OPERATIONS: None. CONSULTATION: None. He is improved. MMODL / MAXIN: [id number] /
== END 2023-03-11 13:22 | disposition home or self-care (01) ==
LOC: EC 19:35 → 1SOBS 03-08 01:05 → 6NMEDSUR 03-08 16:25
PROVIDERS: ADMIT Family Medicine; ATTEND Family Medicine
DX: F10.229 Alcohol dependence with intoxication, unspecified (principal); F10.239 Alcohol dependence with withdrawal, unspecified; Y90.7 Blood alcohol level of 200-239 mg/100 ml; F20.9 Schizophrenia, unspecified; F41.9 Anxiety disorder, unspecified; F31.9 Bipolar disorder, unspecified; E78.5 Hyperlipidemia, unspecified; J44.9 Chronic obstructive pulmonary disease, unspecified; I10 Essential (primary) hypertension; F17.200 Nicotine dependence, unspecified, uncomplicated; Z79.899 Other long term (current) drug therapy; Z59.00 Homelessness unspecified; Z79.82 Long term (current) use of aspirin; Z88.8 Allergy status to other drugs, medicaments and biological substances; Z79.51 Long term (current) use of inhaled steroids
CPT/HCPCS: 96360; 96361; 99284; 36415; 80053; 82150; 83690; 83735; 84100; 85025; 85610; 81003; 80306; G0378 ×5; G0480; 80320

== ENCOUNTER 2023-04-27 10:43 | Emergency (ER) | payer OTHER ==
[2023-04-27 11:06] VITALS: BP 144/90; PULSE 100; RESP 18; TEMP 98
--- NOTE | 2023-04-27 11:11 | ED ---
General Adult HPI - General Chief complaint: Recheck/Abnormal Lab/Rx Stated complaint: Mental Health Med Refill Time Seen by Provider: 04/27/23 10:53 Source: patient, RN notes reviewed Mode of arrival: ambulatory Limitations: no limitations - History of Present Illness Initial comments: 57-year-old male presents emergency department with chief complaint of needing medications. Patient states he has bipolar disorder states that he needs his psychiatric medications but his prescription is at a pharmacy has closed. He is requesting medications for today and tomorrow. Patient offers no other complaints denies being suicidal homicidal. - Related Data Home Medications Medication Instructions Recorded Confirmed Atorvastatin Calcium [Lipitor] 40 mg PO DAILY 10/08/16 03/08/23 Aspirin EC [Ecotrin Low Dose] 81 mg PO DAILY 05/18/20 03/08/23 Trihexyphenidyl [Artane] 2 mg PO BID 05/18/20 03/08/23 Previous Rx's Medication Instructions Recorded Thiothixene [Navane] 2 mg PO BID #20 capsule 03/16/16 lisinopriL [Zestril] 20 mg PO DAILY #30 tab 04/03/16 Allergies Allergy/AdvReac Type Severity Reaction Status Date / Time haloperidol [From Haldol] Allergy Anaphylaxis Verified 04/27/23 10:52 Review of Systems ROS Statement: Those systems with pertinent positive or pertinent negative responses have been documented in the HPI. ROS Other: All systems not noted in ROS Statement are negative. Past Medical History Past Medical History: Hyperlipidemia, Hypertension Additional Past Medical History / Comment(s): anxiety and bipolar disorder, etoh since 2012 History of Any Multi-Drug Resistant Organisms: None Reported Past Surgical History: No Surgical Hx Reported Past Anesthesia/Blood Transfusion Reactions: No Reported Reaction Past Psychological History: Anxiety, Bipolar, Depression Smoking Status: Current every day smoker Past Alcohol Use History: Daily, Heavy Past Drug Use History: None Reported - Past Family History Mother Family Medical History: Myocardial Infarction ([place]) Additional Family Medical History / Comment(s): at age 54 Father History Unknown: Yes Family Medical History: Pneumonia Additional Family Medical History / Comment(s): at 71 from pneumonia General Exam Limitations: no limitations General appearance: alert, in no apparent distress Head exam: Present: atraumatic, normocephalic, normal inspection Eye exam: Present: normal appearance, PERRL, EOMI. Absent: scleral icterus, conjunctival injection, periorbital swelling ENT exam: Present: normal exam, mucous membranes moist Neck exam: Present: normal inspection. Absent: tenderness, meningismus, lymphadenopathy Respiratory exam: Present: normal lung sounds bilaterally. Absent: respiratory distress, wheezes, rales, rhonchi, stridor Cardiovascular Exam: Present: regular rate, normal rhythm, normal heart sounds. Absent: systolic murmur, diastolic murmur, rubs, gallop, clicks Course Vital Signs 04/27/23 10:49 Temperature 98 F Pulse Rate 100 Respiratory 18 Rate Blood Pressure 144/90 O2 Sat by Pulse 98 Oximetry Medical Decision Making - Medical Decision Making Was pt. sent in by a medical professional or institution (ROBERTO Aleman, METAL BUFFER, urgent care, hospital, or senior living...) When possible be specific @ -No Did you speak to anyone other than the patient for history (EMS, parent, family, police, friend...)? What history was obtained from this source @ -No Did you review nursing and triage notes (agree or disagree)? Why? @ -I reviewed and agree with nursing and triage notes Were old charts reviewed (outside hosp., previous admission, EMS record, old EKG, old radiological studies, urgent care reports/EKG's, senior living records)? Report findings @ -No old charts were reviewed Differential Diagnosis (chest pain, altered mental status, abdominal pain women, abdominal pain men, vaginal bleeding, weakness, fever, dyspnea, syncope, headache, dizziness, GI bleed, back pain, seizure, CVA, palpatations, mental health, musculoskeletal)? @ -Medication refill, bipolar disorder EKG interpreted by me (3pts min.). @ -None X-rays interpreted by me (1pt min.). @ -None done CT interpreted by me (1pt min.). @ -None done U/S interpreted by me (1pt. min.). @ -None done What testing was considered but not performed or refused? (CT, X-rays, U/S, labs)? Why? @ -None What meds were considered but not given or refused? Why? @ -None Did you discuss the management of the patient with other professionals (professionals i.e. ROBERTO Aleman, METAL BUFFER, lab, RT, psych nurse, psychiatric social worker supervisor, manager of corporate, teacher, corporate compliance officer, case management associate)? Give summary @ -No Was smoking cessation discussed for >3mins.? @ -No Was critical care preformed (if so, how long)? @ -No Were there social determinants of health that impacted care today? How? (Homelessness, low income, unemployed, alcoholism, drug addiction, transportation, low edu. Level, literacy, decrease access to med. care, residential, rehab)? @ -No Was there de-escalation of care discussed even if they declined (Discuss DNR or withdrawal of care, Hospice)? DNR status @ -No What co-morbidities impacted this encounter? (DM, HTN, Smoking, COPD, CAD, Cancer, CVA, ARF, Chemo, Hep., AIDS, mental health diagnosis, sleep apnea, morbid obesity)? @ -Bipolar Was patient admitted / discharged? Hospital course, mention meds given and route, prescriptions, significant lab abnormalities, going to OR and other pertinent info. @ -Discharge patient provided medications here in the emergency department he states he has a prescription will be discharged in stable condition. Undiagnosed new problem with uncertain prognosis? @ -No Drug Therapy requiring intensive monitoring for toxicity (Heparin, Nitro, Insulin, Cardizem)? @ -No Were any procedures done? @ -No Diagnosis/symptom? @ -Medication refill, bipolar disorder Acute, or Chronic, or Acute on Chronic? @ -Acute Uncomplicated (without systemic symptoms) or Complicated (systemic symptoms)? @ -Uncomplicated Side effects of treatment? @ -No Exacerbation, Progression, or Severe Exacerbation? @ -No Poses a threat to life or bodily function? How? (Chest pain, [place], [place], pneumonia, PE, COPD, DKA, ARF, appy, cholecystitis, CVA, Diverticulitis, Homicidal, Suicidal, threat to staff... and all critical care pts) @ -No Disposition Clinical Impression: Bipolar disorder, Medication refill Disposition: HOME SELF-CARE Condition: Stable Additional Instructions: Please return to the Emergency Department if symptoms worsen or any other concerns. Is patient prescribed a controlled substance at d/c from ED?: No Referrals: Alonzo Cabrera MD [Primary Care Provider] - 1-2 days Time of Disposition: 11:10
[2023-04-27] MEDS: TRIHEXYPHENIDYL 2 MG TAB PO STA ×2 (11:33→11:53)
[2023-04-27] MEDS: THIOTHIXENE 1 MG CAP PO STA ×2 (11:33→11:53)
== END 2023-04-27 11:53 | disposition home or self-care (01) ==
LOC: EC 10:43
DX: F31.9 Bipolar disorder, unspecified (principal); I10 Essential (primary) hypertension; E78.5 Hyperlipidemia, unspecified; F17.200 Nicotine dependence, unspecified, uncomplicated; Z86.59 Personal history of other mental and behavioral disorders; Z88.8 Allergy status to other drugs, medicaments and biological substances
CPT/HCPCS: 99284

== ENCOUNTER 2023-08-28 21:57 | Observation (INO) | payer OTHER ==
--- NOTE | 2023-08-28 23:26 | ED ---
General Adult HPI - General Chief complaint: Alcohol Stated complaint: ETOH Time Seen by Provider: 08/28/23 22:48 Source: patient, EMS, RN notes reviewed, old records reviewed Mode of arrival: EMS Limitations: no limitations - History of Present Illness Initial comments: Is a 58-year-old male who presents emergency department complaining of lower abdominal pain. Patient was also acutely intoxicated with alcohol. Has a history of chronic alcohol abuse. Also has mental health history. History of hypertension and hyperlipidemia. Denies chest pain. States he has had lower abdominal pain for the last month. Denies any current nausea, vomiting, diarrhea, constipation, urinary complaints. Patient does endorse nausea and vomiting occasionally with this abdominal pain but none currently. Has no other acute complaints at this time. Presents for further evaluation at this time. - Related Data Home Medications Medication Instructions Recorded Confirmed Atorvastatin Calcium [Lipitor] 40 mg PO DAILY 10/08/16 03/08/23 Aspirin EC [Ecotrin Low Dose] 81 mg PO DAILY 05/18/20 03/08/23 Trihexyphenidyl [Artane] 2 mg PO BID 05/18/20 03/08/23 Previous Rx's Medication Instructions Recorded Thiothixene [Navane] 2 mg PO BID #20 capsule 03/16/16 lisinopriL [Zestril] 20 mg PO DAILY #30 tab 04/03/16 Allergies Allergy/AdvReac Type Severity Reaction Status Date / Time haloperidol [From Haldol] Allergy Anaphylaxis Verified 08/28/23 22:05 Review of Systems ROS Statement: Those systems with pertinent positive or pertinent negative responses have been documented in the HPI. Review of Systems: CONST: Denies fever EYES: Denies blurry vision ENT: Denies nasal congestion C/V: Denies Chest pain RESP: Denies shortness of breath GI: Endorses abdominal pain : Denies dysuria SKIN: Denies rash. MSK: Denies joint pain. NEURO: Denies headache ROS Other: All systems not noted in ROS Statement are negative. Past Medical History Past Medical History: Hyperlipidemia, Hypertension Additional Past Medical History / Comment(s): anxiety and bipolar disorder, etoh since 2012 History of Any Multi-Drug Resistant Organisms: None Reported Past Surgical History: No Surgical Hx Reported Past Anesthesia/Blood Transfusion Reactions: No Reported Reaction Past Psychological History: Anxiety, Bipolar, Depression Smoking Status: Current every day smoker Past Alcohol Use History: Daily, Heavy Past Drug Use History: None Reported - Past Family History Mother Family Medical History: Myocardial Infarction ([place]) Additional Family Medical History / Comment(s): at age 54 Father History Unknown: Yes Family Medical History: Pneumonia Additional Family Medical History / Comment(s): at 71 from pneumonia General Exam - General Exam Comments Initial Comments: General: Appears in no acute distress. Appears acutely intoxicated with alcohol. HEAD: Normal with no signs of head trauma. EYES: PERRLA, EOMI, conjunctiva normal, no discharge. ENT: Hearing grossly intact, normal oropharynx. RESPIRATORY: Clear breath sounds bilaterally. No wheezes, rales, or rhonchi. C/V: Regular rate and rhythm. S1 and S2 auscultated, no edema, peripheral pulses 2+ and intact throughout ABD: Abdomen is soft, nondistended. Mildly tender to palpation bilateral lower quadrants. No guarding. No rebound tenderness. No peritoneal signs. EXT: Normal range of motion, no obvious deformity SKIN: No rashes or lesions observed on exposed skin. NEURO: Alert and oriented x 4. Limitations: no limitations Course Vital Signs 08/28/23 08/29/23 22:03 01:00 Temperature 97.6 F Pulse Rate 67 81 Respiratory 18 18 Rate Blood Pressure 102/73 106/65 O2 Sat by Pulse 98 100 Oximetry Medical Decision Making - Medical Decision Making Was pt. sent in by a medical professional or institution (, PA, CONVEYOR MAN, urgent care, hospital, or snf...) When possible be specific @ -No Did you speak to anyone other than the patient for history (EMS, parent, family, police, friend...)? What history was obtained from this source @ -No Did you review nursing and triage notes (agree or disagree)? Why? @ -I reviewed and agree with nursing and triage notes Were old charts reviewed (outside hosp., previous admission, EMS record, old EKG, old radiological studies, urgent care reports/EKG's, snf records)? Report findings @ -Old chart reviewed which shows he does have a history remarkable for chronic alcohol abuse. Differential Diagnosis (chest pain, altered mental status, abdominal pain women, abdominal pain men, vaginal bleeding, weakness, fever, dyspnea, syncope, headache, dizziness, GI bleed, back pain, seizure, CVA, palpatations, mental health, musculoskeletal)? @ -Differential Abdominal Pain Men: Appendicitis, cholecystitis, diverticulosis, ischemic bowel, pancreatitis, hepatitis, UTI, gastroenteritis, AAA, incarcerated hernia, bowel obstruction, constipation, inflammatory bowel, hepatitis, peptic ulcer disease, splenic infarction, perforated viscus, testicular torsion, this is not meant to be an all-inclusive list EKG interpreted by me (3pts min.). @ -As above X-rays interpreted by me (1pt min.). @ -None done CT interpreted by me (1pt min.). @ -Abdomen pelvis CT revealed diverticulosis but no obvious acute process at this time. U/S interpreted by me (1pt. min.). @ -None done What testing was considered but not performed or refused? (CT, X-rays, U/S, labs)? Why? @ -None What meds were considered but not given or refused? Why? @ -None Did you discuss the management of the patient with other professionals (professionals i.e. , PA, CONVEYOR MAN, lab, RT, psych nurse, manager social, manager grant, teacher, community cultural development officer, piano case maker)? Give summary @ -Yes, discussed with Dr. Cabrera who accepted the admission. Was smoking cessation discussed for >3mins.? @ -No Was critical care preformed (if so, how long)? @ -No Were there social determinants of health that impacted care today? How? (Homelessness, low income, unemployed, alcoholism, drug addiction, transportation, low edu. Level, literacy, decrease access to med. care, long-term, rehab)? @ -No Was there de-escalation of care discussed even if they declined (Discuss DNR or withdrawal of care, Hospice)? DNR status @ -No What co-morbidities impacted this encounter? (DM, HTN, Smoking, COPD, CAD, Cancer, CVA, ARF, Chemo, Hep., AIDS, mental health diagnosis, sleep apnea, morbid obesity)? @ -None Was patient admitted / discharged? Hospital course, mention meds given and route, prescriptions, significant lab abnormalities, going to OR and other pertinent info. @ -Patient presents acutely intoxicated with alcohol and lower abdominal pain for 1 month. We will obtain abdominal labs as well as a CT abdomen pelvis due to the patient's age. He was in agreement with this plan. Vital signs within acceptable limits. He will be symptomatically treated with IV fluids, Protonix, Zofran, morphine. Screening EKG shows no signs of acute ischemia.CT imaging shows no obvious acute intra-abdominal process to explain the patient's symptoms. Labs remarkable for acute alcohol intoxication with alcohol level of 268. On reevaluation, patient is resting comfortably. Discussed results with him. He will be admitted for alcohol intoxication as I cannot safely discharge him home at this time and he has no ride. Patient was in agreement this plan. I spoke with the admitting physician, Dr. Cabrera who accepted the admission. [facility] protocol ordered. No evidence of alcohol withdrawals at time of admission. Undiagnosed new problem with uncertain prognosis? @ -No Drug Therapy requiring intensive monitoring for toxicity (Heparin, Nitro, Insulin, Cardizem)? @ -No Were any procedures done? @ -No Diagnosis/symptom? @ -Alcohol intoxication, abdominal pain of unknown etiology Acute, or Chronic, or Acute on Chronic? @ -Acute Uncomplicated (without systemic symptoms) or Complicated (systemic symptoms)? @ -Complicated Side effects of treatment? @ -None Exacerbation, Progression, or Severe Exacerbation] @ -No Poses a threat to life or bodily function? @ -Yes - Lab Data Result diagrams: 08/28/23 23:28 08/28/23 23:28 Lab Results 08/28/23 08/28/23 08/28/23 Range/Units 23:28 23:28 23:28 WBC 9.0 (3.8-10.6) k/uL RBC 4.28 L (4.30-5.90) m/uL Hgb 13.8 (13.0-17.5) gm/dL Hct 43.7 (39.0-53.0) % MCV 102.2 H (80.0-100.0) fL MCH 32.4 (25.0-35.0) pg MCHC 31.7 (31.0-37.0) g/dL RDW 12.8 (11.5-15.5) % Plt Count 211 (150-450) k/uL MPV 8.1 Neutrophils % 39 % Lymphocytes % 47 % Monocytes % 8 % Eosinophils % 3 % Basophils % 1 % Neutrophils # 3.5 (1.3-7.7) k/uL Lymphocytes # 4.2 (1.0-4.8) k/uL Monocytes # 0.7 (0-1.0) k/uL Eosinophils # 0.2 (0-0.7) k/uL Basophils # 0.1 (0-0.2) k/uL Macrocytosis Slight PT 10.0 (10.0-12.5) sec INR 0.9 (<1.2) APTT 24.3 (22.0-30.0) sec Sodium 135 L (137-145) mmol/L Potassium 4.0 (3.5-5.1) mmol/L Chloride 104 (98-107) mmol/L Carbon Dioxide 27 (22-30) mmol/L Anion Gap 4 mmol/L BUN 6 L (9-20) mg/dL Creatinine 0.57 L (0.66-1.25) mg/dL Est GFR (CKD-EPI)AfAm >90 (>60 ml/min/1.73 sqM) Est GFR (CKD-EPI)NonAf >90 (>60 ml/min/1.73 sqM) Glucose 88 (74-99) mg/dL Calcium 8.9 (8.4-10.2) mg/dL Total Bilirubin 0.6 (0.2-1.3) mg/dL AST 44 (17-59) U/L ALT 30 (4-49) U/L Alkaline Phosphatase 61 (38-126) U/L Total Protein 6.9 (6.3-8.2) g/dL Albumin 4.0 (3.5-5.0) g/dL Amylase 49 (30-110) U/L Lipase 185 (23-300) U/L Urine Color Urine Appearance (Clear) Urine pH (5.0-8.0) Ur Specific [place] (1.001-1.035) Urine Protein (Negative) Urine Glucose (UA) (Negative) Urine Ketones (Negative) Urine Blood (Negative) Urine Nitrite (Negative) Urine Bilirubin (Negative) Urine Urobilinogen (<2.0) mg/dL Ur Leukocyte Esterase (Negative) Serum Alcohol 268 H* mg/dL 08/29/23 Range/Units 01:03 WBC (3.8-10.6) k/uL RBC (4.30-5.90) m/uL Hgb (13.0-17.5) gm/dL Hct (39.0-53.0) % MCV (80.0-100.0) fL MCH (25.0-35.0) pg MCHC (31.0-37.0) g/dL RDW (11.5-15.5) % Plt Count (150-450) k/uL MPV Neutrophils % % Lymphocytes % % Monocytes % % Eosinophils % % Basophils % % Neutrophils # (1.3-7.7) k/uL Lymphocytes # (1.0-4.8) k/uL Monocytes # (0-1.0) k/uL Eosinophils # (0-0.7) k/uL Basophils # (0-0.2) k/uL Macrocytosis PT (10.0-12.5) sec INR (<1.2) APTT (22.0-30.0) sec Sodium (137-145) mmol/L Potassium (3.5-5.1) mmol/L Chloride (98-107) mmol/L Carbon Dioxide (22-30) mmol/L Anion Gap mmol/L BUN (9-20) mg/dL Creatinine (0.66-1.25) mg/dL Est GFR (CKD-EPI)AfAm (>60 ml/min/1.73 sqM) Est GFR (CKD-EPI)NonAf (>60 ml/min/1.73 sqM) Glucose (74-99) mg/dL Calcium (8.4-10.2) mg/dL Total Bilirubin (0.2-1.3) mg/dL AST (17-59) U/L ALT (4-49) U/L Alkaline Phosphatase (38-126) U/L Total Protein (6.3-8.2) g/dL Albumin (3.5-5.0) g/dL Amylase (30-110) U/L Lipase (23-300) U/L Urine Color Colorless Urine Appearance Clear (Clear) Urine pH 5.5 (5.0-8.0) Ur Specific [place] 1.005 (1.001-1.035) Urine Protein Negative (Negative) Urine Glucose (UA) Negative (Negative) Urine Ketones Negative (Negative) Urine Blood Negative (Negative) Urine Nitrite Negative (Negative) Urine Bilirubin Negative (Negative) Urine Urobilinogen <2.0 (<2.0) mg/dL Ur Leukocyte Esterase Negative (Negative) Serum Alcohol mg/dL - EKG Data -: EKG Interpreted by Me EKG Comments: 12-lead Electrocardiogram Interpretation Note EKG was reviewed and interpreted by myself. 12-lead ECG performed at 2306 is interpreted by me as revealing normal sinus rhythm at a rate of 74 beats per minute. [place] is normal. NE interval is 166 ms, QRS duration is 103 ms, QTc is 420 ms.. There were no ST or T wave abnormalities to suggest myocardial ischemia or injury. R wave progression across the precordium was satisfactory. By my interpretation this EKG is non-diagnostic for acute ischemia. Disposition Clinical Impression: Alcohol intoxication, Abdominal pain of unknown etiology Disposition: ADMITTED IP TO THIS HOSP Condition: Stable Referrals: Alonzo Cabrera MD [Primary Care Provider] - 1-2 days Time of Disposition: 02:10
[2023-08-28] MEDS: SODIUM CHLORIDE 0.9% 1,000 ML IV STA (23:51)
[2023-08-28] MEDS: PANTOPRAZOLE 40 MG/10 ML VIAL IVP STA (23:55)
[2023-08-28] MEDS: ONDANSETRON 4 MG/2 ML VIAL IVP STA (23:57)
[2023-08-28] MEDS: MORPHINE SULFATE 4 MG/ML SYRINGE IVP STA (23:59)
--- NOTE | 2023-08-29 00:42 | CT ---
EXAMINATION TYPE: CT abdomen pelvis w con DATE OF EXAM: 08/29/2023 COMPARISON: Prior CT 2014 HISTORY: ETOH on board. Daily drinker. Pt. c/o intermittent N/V and lower abdominal pain tonight CT DLP: 563 mGycm, Automated Exposure Control for Dose Reduction was Utilized. CONTRAST: CT scan of the abdomen and pelvis is performed with oral and with IV Contrast, patient injected with 100 mL of Isovue 300. FINDINGS: LUNG BASES: No significant abnormality is appreciated. LIVER/GB: Liver is diffusely low dense consistent with diffuse fatty infiltrative hepatocellular dise ase. PANCREAS: No significant abnormality is seen. SPLEEN: No significant abnormality is seen. ADRENALS: No significant abnormality is seen. KIDNEYS: Moderately distended bladder. Symmetric excretion without hydronephrosis seen bilaterally. BOWEL: Severe distal colonic diverticulosis redemonstrated a more prominent from prior. No convincing CT evidence for acute diverticulitis. No abnormal small or large bowel dilatation. Normal-appearing appendix from the cecum. PROSTATE/SEMINAL VESICLES: No gross abnormality seen. LYMPH NODES: No greater than 1cm abdominal or pelvic lymph nodes are appreciated. OSSEOUS STRUCTURES: Heterotopic ossification region of the right hip laterally is present.. OTHER: Mild to moderate calcified plaque of the aorta extends into branch vessels. IMPRESSION: Prominent distal colonic diverticulosis. No convincing CT evidence for acute diverticulit is. No bowel obstruction. Moderately distended bladder. No acute finding otherwise seen to account fo r patient's symptoms.
[2023-08-29 00:56] LABS: INR 0.9 (<1.2); Partial Thromboplastin Time 24.3 sec (22.0-30.0)
[2023-08-29 01:13] LABS: Basophils # (A) 0.1 k/uL (0-0.2); Basophils % (A) 1 %; Eosinophils # (A) 0.2 k/uL (0-0.7); Eosinophils % (A) 3 %; HCT 43.7 % (39.0-53.0); HGB 13.8 gm/dL (13.0-17.5); Lymphocytes # (A) 4.2 k/uL (1.0-4.8); Lymphocytes % (A) 47 %; MCH 32.4 pg (25.0-35.0); MCHC 31.7 g/dL (31.0-37.0); MCV 102.2 fL (80.0-100.0); Macrocytosis Slight; Mean Platelet Volume 8.1; Monocytes # (A) 0.7 k/uL (0-1.0); Monocytes % (A) 8 %; Neutrophils # (A) 3.5 k/uL (1.3-7.7); Neutrophils % (A) 39 %; Platelet Count 211 k/uL (150-450); RBC 4.28 m/uL (4.30-5.90); RDW 12.8 % (11.5-15.5)
[2023-08-29 01:16] LABS: ALT 30 U/L (4-49); AST 44 U/L (17-59); African American GFR (CKD) >90 (>60 ml/min/1.73 sqM); Alkaline Phosphatase 61 U/L (38-126); Amylase 49 U/L (30-110); Anion Gap 4 mmol/L; Blood Urea Nitrogen 6 mg/dL (9-20); Calcium 8.9 mg/dL (8.4-10.2); Carbon Dioxide 27 mmol/L (22-30); Chloride 104 mmol/L (98-107); Glucose 88 mg/dL (74-99); Lipase 185 U/L (23-300); Non-African American GFR(CKD) >90 (>60 ml/min/1.73 sqM); Sodium 135 mmol/L (137-145); Total Bilirubin 0.6 mg/dL (0.2-1.3); Total Protein 6.9 g/dL (6.3-8.2)
[2023-08-29 01:18] LABS: Alcohol 268 mg/dL
[2023-08-29] MEDS ORDERED: ONDANSETRON 4 MG/2 ML VIAL IVP PRN (01:59)
[2023-08-29] MEDS ORDERED: NALOXONE 0.4 MG/ML 1 ML VIAL IV PRN (01:59)
[2023-08-29] MEDS ORDERED: MORPHINE SULFATE 4 MG/ML SYRINGE IV PRN (01:59)
[2023-08-29] MEDS ORDERED: LORazepam 2 MG/ML INJ IV PRN ×2 (02:09)
[2023-08-29 02:38] LABS: Appearance,Urine Clear (Clear); Bilirubin,Urine Negative (Negative); Blood,Urine Negative (Negative); Color,Urine Colorless; Glucose,Urine (UA) Negative (Negative); Ketones,Urine Negative (Negative); Leukocyte Esterase,Urine Negative (Negative); Nitrite,Urine Negative (Negative); PH, Urine 5.5 (5.0-8.0); Protein,Urine Negative (Negative); Specific Gravity,Urine 1.005 (1.001-1.035); Urobilinogen,Urine <2.0 mg/dL (<2.0)
[2023-08-29] MEDS: SODIUM CHLORIDE 0.9% 1,000 ML IV SCH (02:57)
[2023-08-29] MEDS: THIAMINE 100 MG/ML 2 ML VIAL IM STA (02:58)
[2023-08-29] MEDS: LORazepam 2 MG/ML INJ IV PRN (09:35)
[2023-08-29] MEDS: PANTOPRAZOLE 40 MG/10 ML VIAL IV SCH (09:43)
[2023-08-29] MEDS: TRIHEXYPHENIDYL 2 MG TAB PO SCH (21:25)
[2023-08-29] MEDS: THIOTHIXENE 1 MG CAP PO SCH (21:26)
[2023-08-30] MEDS: THIAMINE 100 MG TAB PO SCH (07:53)
[2023-08-30 08:26] LABS: Basophils # (A) 0.12 X 10*3/uL (0.00-0.10); Basophils % (A) 1.3 %; Eosinophils # (A) 0.39 X 10*3/uL (0.04-0.35); Eosinophils % (A) 4.1 %; HCT 34.9 % (39.6-50.0); HGB 11.9 g/dL (13.0-17.0); Lymphocytes # (A) 3.41 X 10*3/uL (0.90-5.00); Lymphocytes % (A) 36.1 %; MCH 33.9 pg (27.0-32.0); MCHC 34.1 g/dL (32.0-37.0); MCV 99.4 FL (80.0-97.0); Mean Platelet Volume 10.6 FL (9.5-12.2); Monocytes # (A) 0.93 X 10*3/uL (0.20-1.00); Monocytes % (A) 9.8 %; NRBC Per 100 WBC 0 X 10*3/uL (0.00-0.01); Neutrophils # (A) 4.57 X 10*3/uL (1.80-7.70); Neutrophils % (A) 48.4 %; Platelet Count 171 X 10*3/uL (140-440); RBC 3.51 X 10*6/uL (4.40-5.60); RDW 13.1 % (11.5-14.5); WBC 9.45 X 10*3/uL (4.50-10.00)
[2023-08-30 08:45] LABS: BUN/Creat Ratio 16.25 Ratio (12.00-20.00); Chloride 102 mmol/L (96-109); Glucose 141 mg/dL (70-110); Potassium 3.8 mmol/L (3.5-5.5); Sodium 135 mmol/L (135-145)
[2023-08-30 08:46] LABS: ALT 28 U/L (10-49); AST 35 U/L (14-35); Albumin 3.4 g/dL (3.8-4.9); Albumin/Globulin Ratio 1.62 Ratio (1.60-3.17); Alkaline Phosphatase 68 U/L (41-126); Calcium 8.4 mg/dL (8.7-10.3); Carbon Dioxide 24.2 mmol/L (21.6-31.8); Globulin 2.1 g/dL (1.6-3.3); Total Bilirubin 0.3 mg/dL (0.3-1.2); Total Protein 5.5 g/dL (6.2-8.2)
[2023-08-30 12:14] VITALS: BMI 21.5
[2023-08-31 23:12] LABS: Basophils # (A) 0.09 X 10*3/uL (0.00-0.10); Basophils % (A) 1.2 %; Eosinophils # (A) 0.32 X 10*3/uL (0.04-0.35); Eosinophils % (A) 4.4 %; HGB 11.8 g/dL (13.0-17.0); Lymphocytes % (A) 38.3 %; MCH 32.5 pg (27.0-32.0); MCHC 31.9 g/dL (32.0-37.0); MCV 101.9 FL (80.0-97.0); Mean Platelet Volume 10.5 FL (9.5-12.2); Monocytes # (A) 0.85 X 10*3/uL (0.20-1.00); Monocytes % (A) 11.6 %; NRBC Per 100 WBC 0 X 10*3/uL (0.00-0.01); Neutrophils # (A) 3.22 X 10*3/uL (1.80-7.70); Neutrophils % (A) 44.1 %; Platelet Count 167 X 10*3/uL (140-440); RBC 3.63 X 10*6/uL (4.40-5.60); RDW 13.2 % (11.5-14.5); WBC 7.31 X 10*3/uL (4.50-10.00)
--- NOTE | 2023-08-31 23:16 | HP ---
HISTORY AND PHYSICAL CHIEF COMPLAINT: Abdominal pain and acute alcohol intoxication. HISTORY OF PRESENT ILLNESS: This is another admission for this 58-year-old chronic alcoholic. He is also schizophrenic. He does smoke. He came to emergency room with complaints of lower abdominal pain, but all of his studies were negative. Because he was intoxicated, he was admitted for detox and management of DTs. REVIEW OF SYSTEMS: Other than complaining of some lower abdominal pain, he has no complaints. PHYSICAL EXAM: VITAL SIGNS: Normal. HEAD, EARS, EYES, NOSE, MOUTH, AND THROAT: Normal. He is disheveled and chronically ill in appearance. CHEST: Demonstrates decreased breath sounds throughout with occasional rales and rhonchi. CARDIAC: Normal. ABDOMEN: Soft, nontender. EXTREMITIES: Normal. NEUROLOGICAL: He is lethargic and intoxicated, but otherwise intact. ASSESSMENT: Admitted to the hospital with diagnosis with, 1. Lower abdominal pain. 2. Acute alcohol intoxication. 3. Chronic alcoholism. 4. Chronic obstructive pulmonary disease. 5. Schizophrenia. PLAN: 1. Bed rest. 2. IV fluids. 3. CIWA protocol. MMJAELYN / DEL: [id number] /
--- NOTE | 2023-09-01 02:48 | PN ---
PROGRESS NOTE DATE OF SERVICE: 08/30/2023 CHIEF COMPLAINT: Acute alcohol intoxication. HISTORY OF PRESENT ILLNESS: This gentleman is in DTs, but he has had no seizures. PHYSICAL EXAMINATION: CHEST: Clear. CARDIAC: Normal. NEUROLOGIC: He is somewhat tremulous. IMPRESSION: Delirium tremens. PLAN: Continue with CIWA protocol and IV fluids. MMODL / IJN: [id number] /
--- NOTE | 2023-09-01 02:52 | PN ---
PROGRESS NOTE DATE OF SERVICE: 08/30/2023 CHIEF COMPLAINT: Acute alcohol intoxication and DTs. HISTORY OF PRESENT ILLNESS: This gentleman is doing well, but he is still somewhat tremulous. PHYSICAL EXAMINATION: VITAL SIGNS: Normal. CHEST: Clear. CARDIAC: Normal. ABDOMEN: Soft, nontender. IMPRESSION: 1. Delirium tremens. 2. Acute alcohol intoxication. 3. Chronic obstructive pulmonary disease. 4. Schizophrenia. PLAN: Progress activity and diet. MMODL / IJN: [id number] /
[2023-09-01 10:36] LABS: ALT 22 U/L (10-49); AST 21 U/L (14-35); Albumin 3.5 g/dL (3.8-4.9); Albumin/Globulin Ratio 1.94 Ratio (1.60-3.17); Alkaline Phosphatase 55 U/L (41-126); Calcium 8.9 mg/dL (8.7-10.3); Carbon Dioxide 24.3 mmol/L (21.6-31.8); Chloride 109 mmol/L (96-109); Globulin 1.8 g/dL (1.6-3.3); Glucose 95 mg/dL (70-110); Potassium 3.7 mmol/L (3.5-5.5); Sodium 141 mmol/L (135-145); Total Bilirubin <0.2 mg/dL (0.3-1.2); Total Protein 5.3 g/dL (6.2-8.2)
[2023-09-02 07:50] VITALS: BP 124/82; PULSE 59; RESP 18; TEMP 97.7
--- NOTE | 2023-09-03 00:58 | DS ---
DISCHARGE SUMMARY CHIEF COMPLAINT: Acute alcohol intoxication. HISTORY OF PRESENT ILLNESS AND PHYSICAL EXAMINATION: Details of this man's history and physical can be found in the initial workup. LABORATORY STUDIES: While he was in the hospital, he had laboratory studies, details of which can be found in the laboratory section of his chart. COURSE IN HOSPITAL: After admission, he was placed on bedrest, started on intravenous fluids and CIWA protocol. He did go into DTs. He was stabilizing and it was planned that he would go home on the , but he signed himself out AMA before discharge was entered. FINAL DIAGNOSES: 1. Acute alcohol intoxication. 2. Delirium tremens. 3. Chronic obstructive pulmonary disease. 4. Schizophrenia. OPERATIONS: None. CONSULTATIONS: None, he is improved. SHIRLEY / DEL: [id number] /
--- NOTE | 2023-09-03 01:51 | PN ---
PROGRESS NOTE DATE OF SERVICE: 09/01/2023 CHIEF COMPLAINT: Acute alcohol intoxication and DTs. HISTORY OF PRESENT ILLNESS: This is a gentleman, who is feeling better, but he is still slightly tremulous and his discharge will be held for another day. PHYSICAL EXAMINATION: CHEST: Clear. CARDIAC: Normal. IMPRESSION: 1. Acute alcohol intoxication. 2. Chronic alcoholism. 3. Delirium tremens. 4. Chronic obstructive pulmonary disease. 5. Schizophrenia. PLAN: Probably discharge tomorrow. MMODL / IJN: [id number] /
[2023-09-03] MEDS ORDERED: PANTOPRAZOLE 40 MG/10 ML VIAL IV SCH (09:00)
== END 2023-09-02 10:42 | disposition left against medical advice (07) ==
LOC: EC 21:57 → 6NMEDSUR 08-29 01:59 → 5NMEDONC 08-29 10:15 → 3SCARD 08-29 19:31 → 6NMEDSUR 08-29 19:49
PROVIDERS: ADMIT Family Medicine; ATTEND Family Medicine
DX: F10.121 Alcohol abuse with intoxication delirium (principal); J44.9 Chronic obstructive pulmonary disease, unspecified; F25.9 Schizoaffective disorder, unspecified; Z82.49 Family history of ischemic heart disease and other diseases of the circulatory system; Z79.82 Long term (current) use of aspirin; F17.210 Nicotine dependence, cigarettes, uncomplicated
CPT/HCPCS: 96376 ×4; 96361; 96365; 96372; 96375; 99285; 36415; 93005; 80053 ×3; 82150; 83690; 85025 ×3; 85610; 85730; 81003; 74177; G0378 ×6; G0480; J2060; J2270; J3411; J2405; C9113 ×5; J2470; 80320

== ENCOUNTER 2023-09-21 23:28 | Emergency (ER) | payer OTHER ==
[2023-09-21 23:40] VITALS: RESP 18; TEMP 98.3
[2023-09-22] MEDS: KETOROLAC 15 MG/ML 1 ML VIAL IVP STA (00:28)
[2023-09-22] MEDS: ORPHENADRINE 30 MG/ML 2 ML VIAL IVP STA (00:29)
[2023-09-22] MEDS: SODIUM CHLORIDE 0.9% 1,000 ML IV STA (00:29)
--- NOTE | 2023-09-22 00:32 | ED ---
General Adult HPI - General Chief complaint: Chest Pain Stated complaint: Back pain, FERNANDO Time Seen by Provider: 09/21/23 23:31 Source: patient, EMS, RN notes reviewed Mode of arrival: EMS Limitations: no limitations - History of Present Illness Initial comments: This is a 58-year-old male who presents to the emergency department for several complaints. He states that over the last week he has had pain in his back, extending from the upper back down to the lower back. He also has generalized abdominal pain and has been experiencing emesis over the last 4 days. Additionally, he has had increasing shortness of breath but states that this may be related to his COPD. He has minor associated chest pain that started a week ago as well. Also admits to regular alcohol consumption. - Related Data Home Medications Medication Instructions Recorded Confirmed Atorvastatin Calcium [Lipitor] 40 mg PO DAILY 10/08/16 08/29/23 Aspirin EC [Ecotrin Low Dose] 81 mg PO DAILY 05/18/20 08/29/23 Trihexyphenidyl [Artane] 2 mg PO BID 05/18/20 08/29/23 Albuterol Sulfate [Albuterol 1 - 2 puff PO RT-QID PRN 08/29/23 08/29/23 Sulfate Hfa] Budesonide/Formoterol Fumarate 2 puff INHALATION RT-BID 08/29/23 08/29/23 [Symbicort 160-4.5 Mcg Inhaler] Previous Rx's Medication Instructions Recorded Thiothixene [Navane] 2 mg PO BID #20 capsule 03/16/16 lisinopriL [Zestril] 20 mg PO DAILY #30 tab 04/03/16 Albuterol Sulfate [Albuterol 1 - 2 puff PO Q4-6H PRN #8.5 gm 09/22/23 Sulfate Hfa] Azithromycin [Zithromax] 250 mg PO DIRECTED 5 Days #6 tab 09/22/23 methocarbamoL [Robaxin-750] 1,500 mg PO TID PRN #30 tab 09/22/23 predniSONE 50 mg PO DAILY 5 Days #5 tab 09/22/23 Allergies Allergy/AdvReac Type Severity Reaction Status Date / Time haloperidol [From Haldol] Allergy Anaphylaxis Verified 08/29/23 08:23 Review of Systems ROS Statement: Those systems with pertinent positive or pertinent negative responses have been documented in the HPI. ROS Other: All systems not noted in ROS Statement are negative. Past Medical History Past Medical History: Hyperlipidemia, Hypertension Additional Past Medical History / Comment(s): anxiety and bipolar disorder, etoh since 2012 History of Any Multi-Drug Resistant Organisms: None Reported Past Surgical History: No Surgical Hx Reported Past Anesthesia/Blood Transfusion Reactions: No Reported Reaction Past Psychological History: Anxiety, Bipolar, Depression Smoking Status: Current every day smoker Past Alcohol Use History: Daily, Heavy Past Drug Use History: None Reported - Past Family History Mother Family Medical History: Myocardial Infarction (SD) Additional Family Medical History / Comment(s): at age 54 Father History Unknown: Yes Family Medical History: Pneumonia Additional Family Medical History / Comment(s): at 71 from pneumonia General Exam Limitations: no limitations General appearance: alert, in no apparent distress Head exam: Present: atraumatic, normocephalic, normal inspection Respiratory exam: Present: normal lung sounds bilaterally. Absent: respiratory distress, wheezes, rales, rhonchi, stridor Cardiovascular Exam: Present: regular rate, normal rhythm, normal heart sounds. Absent: systolic murmur, diastolic murmur, rubs, gallop, clicks GI/Abdominal exam: Present: soft, tenderness (diffuse), normal bowel sounds. Absent: distended, guarding, rebound, rigid Back exam: Present: normal inspection, full ROM, other (Tenderness throughout the whole back) Neurological exam: Present: alert, oriented X3, CN II-XII intact Psychiatric exam: Present: normal affect, normal mood Skin exam: Present: warm, dry, intact, normal color. Absent: rash Course Vital Signs 09/21/23 09/22/23 09/22/23 23:33 01:57 02:51 Temperature 98.3 F Pulse Rate 97 98 105 H Respiratory 18 18 18 Rate Blood Pressure 99/62 103/60 113/77 O2 Sat by Pulse 98 96 98 Oximetry 09/22/23 09/22/23 09/22/23 02:58 03:02 03:35 Temperature Pulse Rate 104 H 103 H 99 Respiratory 18 Rate Blood Pressure 103/66 O2 Sat by Pulse 97 Oximetry Medical Decision Making - Medical Decision Making This is a 58 year old male who presents to the emergency department for chest pain, back pain, abdominal pain, and shortness of breath. Was pt. sent in by a medical professional or institution? @ -No Did you speak to anyone other than the patient for history? @ -No Did you review nursing and triage notes? @ -Yes, and I agree, it is accurate with regards to the patient's symptoms. Were old charts reviewed? @ -No Differential Diagnosis? @ -Differential Chest Pain: Stable Angina, Unstable Angina, STEMI, NSTEMI Aortic Dissection, Pneumothorax, Musculoskeletal, Esophageal Spasm GERD, Cholecystitis, Pancreatitis, Zoster, this is not meant to be an all-inclusive list. EKG interpreted by me (3pts min.)? @ -EKG interpreted by me demonstrating the following: Sinus rhythm. Ventricular rate 96 bpm, NE interval 170 ms, QRS duration 104 ms, QTc 409 ms. X-rays interpreted by me (1pt min.)? @ -Chest x-ray obtained, my interpretation identifies no localized consolidations or infiltrates. CT interpreted by me (1pt min.)? @ -CTA of the chest obtained. My interpretation identifies no evidence of a pulmonary embolus. CT scan of the abdomen and pelvis obtained. My interpretation identifies no evidence of bowel wall thickening or free air. U/S interpreted by me (1pt. min.)? @ -Not obtained What testing was considered but not performed? (CT, X-rays, U/S, labs)? Why? @ -None What meds were considered but not given? Why? @ -None Did you discuss the management of the patient with other professionals? @ -No Did you reconcile home meds? @ -No Was smoking cessation discussed for >3mins.? @ -I discussed smoking cessation for greater than 3 minutes. The risk of smoking were discussed with the patient including but not limited to risks of cancer, stroke, coronary artery disease and COPD. Also discussed with patient were multiple methods of quitting smoking. Lastly we discussed the financial cost of smoking. Was critical care preformed (if so, how long)? @ -No Were there social determinants of health that impacted care today? How? (Homelessness, low income, unemployed, alcoholism, drug addiction, transportation, low edu. Level, literacy, decrease access to med. care, [facility], rehab)? @ -No Was there de-escalation of care discussed even if they declined? (Discuss DNR or withdrawal of care, Hospice)? @ -No What co-morbidities impacted this encounter? (DM, HTN, Smoking, COPD, CAD, Cancer, CVA, Hep., AIDS, mental health diagnosis, sleep apnea, morbid obesity)? @ -Alcoholism, COPD, HTN, HLD, smoking Was patient admitted / discharged? @ -Discharged. Lab work demonstrates an elevated D-dimer of 0.63. He also has hyponatremia and mildly elevated liver enzymes. Alcohol level 131. Urinalysis negative for signs of infection. Chest x-ray reveals no acute process. CTA of the chest reveals no evidence of a pulmonary embolus. Emphysematous changes were noted. He was also noted to have hairline nondisplaced fractures of ribs 6 and 7 on the left. Patient denies any recent falls, however he does consume a lot of alcohol and it is possible that he may not remember falling. CT scan of the abdomen and pelvis reveals no acute findings. Symptoms well-controlled in the emergency department. DuoNeb breathing treatment administered as well. Some of his symptoms may be related to a COPD exacerbation. Tenderness in the back and abdomen was diffuse without any areas of localization. Patient states that he would like to go home. He was given 125 mg of Solu-Medrol and 500 mg of azit hromycin in the emergency department. Prescription for prednisone and azithromycin provided for COPD exacerbation. Albuterol inhaler refilled as well. He was also sent in a prescription for Robaxin for his back pain. Advised close follow-up with his primary care provider. Patient discharged home in stable condition. Undiagnosed new problem with uncertain prognosis? @ -None Drug Therapy requiring intensive monitoring for toxicity (Heparin, Nitro, Insuli n, Cardizem)? @ -None Were any procedures done? @ -None Diagnosis/symptom? @ -COPD exacerbation Acute, or Chronic, or Acute on Chronic? @ -Acute on chronic Uncomplicated (without systemic symptoms) or Complicated (systemic symptoms)? @ -Uncomplicated Side effects of treatment? @ -None Exacerbation, Progression, or Severe Exacerbation] @ -Exacerbation Poses a threat to life or bodily function? @ -No Return precautions reviewed in depth, the patient is instructed to return to the emergency department with any new, worsening, or concerning symptoms. Patient verbalized understanding. This case was discussed in detail with the attending ED physician, Dr. Kemp. Presentation, findings, and treatment plan discussed in detail as well. - Lab Data Result diagrams: 09/22/23 00:19 09/22/23 00:19 Lab Results 09/22/23 09/22/23 09/22/23 Range/Units 00:19 00:19 00:19 WBC 7.7 (3.8-10.6) k/uL RBC 3.52 L (4.30-5.90) m/uL Hgb 11.8 L (13.0-17.5) gm/dL Hct 34.9 L (39.0-53.0) % MCV 99.2 (80.0-100.0) fL MCH 33.5 (25.0-35.0) pg MCHC 33.8 (31.0-37.0) g/dL RDW 13.0 (11.5-15.5) % Plt Count 166 (150-450) k/uL MPV 7.1 Neutrophils % 37 % Lymphocytes % 44 % Monocytes % 10 % Eosinophils % 4 % Basophils % 1 % Neutrophils # 2.9 (1.3-7.7) k/uL Lymphocytes # 3.4 (1.0-4.8) k/uL Monocytes # 0.8 (0-1.0) k/uL Eosinophils # 0.3 (0-0.7) k/uL Basophils # 0.1 (0-0.2) k/uL PT 10.1 (10.0-12.5) sec INR 0.9 (<1.2) APTT 25.5 (22.0-30.0) sec D-Dimer 0.63 H (<0.60) mg/L FEU Sodium 128 L (137-145) mmol/L Potassium 4.1 (3.5-5.1) mmol/L Chloride 97 L (98-107) mmol/L Carbon Dioxide 22 (22-30) mmol/L Anion Gap 9 mmol/L BUN 9 (9-20) mg/dL Creatinine 0.53 L (0.66-1.25) mg/dL Est GFR (CKD-EPI)AfAm >90 (>60 ml/min/1.73 sqM) Est GFR (CKD-EPI)NonAf >90 (>60 ml/min/1.73 sqM) Glucose 91 (74-99) mg/dL Calcium 8.3 L (8.4-10.2) mg/dL Magnesium 1.9 (1.6-2.3) mg/dL Total Bilirubin 1.0 (0.2-1.3) mg/dL AST 68 H (17-59) U/L ALT 52 H (4-49) U/L Alkaline Phosphatase 61 (38-126) U/L Troponin I (0.000-0.034) ng/mL NT-Pro-B Natriuret Pep 24 pg/mL Total Protein 6.1 L (6.3-8.2) g/dL Albumin 3.6 (3.5-5.0) g/dL Amylase 54 (30-110) U/L Lipase 196 (23-300) U/L Urine Color Urine Appearance (Clear) Urine pH (5.0-8.0) Ur Specific Stringer (1.001-1.035) Urine Protein (Negative) Urine Glucose (UA) (Negative) Urine Ketones (Negative) Urine Blood (Negative) Urine Nitrite (Negative) Urine Bilirubin (Negative) Urine Urobilinogen (<2.0) mg/dL Ur Leukocyte Esterase (Negative) Serum Alcohol 131 mg/dL 09/22/23 09/22/23 Range/Units 00:19 01:57 WBC (3.8-10.6) k/uL RBC (4.30-5.90) m/uL Hgb (13.0-17.5) gm/dL Hct (39.0-53.0) % MCV (80.0-100.0) fL MCH (25.0-35.0) pg MCHC (31.0-37.0) g/dL RDW (11.5-15.5) % Plt Count (150-450) k/uL MPV Neutrophils % % Lymphocytes % % Monocytes % % Eosinophils % % Basophils % % Neutrophils # (1.3-7.7) k/uL Lymphocytes # (1.0-4.8) k/uL Monocytes # (0-1.0) k/uL Eosinophils # (0-0.7) k/uL Basophils # (0-0.2) k/uL PT (10.0-12.5) sec INR (<1.2) APTT (22.0-30.0) sec D-Dimer (<0.60) mg/L FEU Sodium (137-145) mmol/L Potassium (3.5-5.1) mmol/L Chloride (98-107) mmol/L Carbon Dioxide (22-30) mmol/L Anion Gap mmol/L BUN (9-20) mg/dL Creatinine (0.66-1.25) mg/dL Est GFR (CKD-EPI)AfAm (>60 ml/min/1.73 sqM) Est GFR (CKD-EPI)NonAf (>60 ml/min/1.73 sqM) Glucose (74-99) mg/dL Calcium (8.4-10.2) mg/dL Magnesium (1.6-2.3) mg/dL Total Bilirubin (0.2-1.3) mg/dL AST (17-59) U/L ALT (4-49) U/L Alkaline Phosphatase (38-126) U/L Troponin I <0.012 (0.000-0.034) ng/mL NT-Pro-B Natriuret Pep pg/mL Total Protein (6.3-8.2) g/dL Albumin (3.5-5.0) g/dL Amylase (30-110) U/L Lipase (23-300) U/L Urine Color Colorless Urine Appearance Clear (Clear) Urine pH 5.5 (5.0-8.0) Ur Specific Stringer 1.005 (1.001-1.035) Urine Protein Negative (Negative) Urine Glucose (UA) Negative (Negative) Urine Ketones Negative (Negative) Urine Blood Negative (Negative) Urine Nitrite Negative (Negative) Urine Bilirubin Negative (Negative) Urine Urobilinogen <2.0 (<2.0) mg/dL Ur Leukocyte Esterase Negative (Negative) Serum Alcohol mg/dL - Radiology Data Radiology results: report reviewed, image reviewed Disposition Clinical Impression: COPD exacerbation, Back pain, Nicotine dependence Disposition: HOME SELF-CARE Instructions (If sedation given, give patient instructions): COPD (Chronic Obstructive Pulmonary Disease) (ED), Back Pain (ED) Additional Instructions: Return to the emergency department with any new, worsening, or concerning symptoms. Take the antibiotic as prescribed for 5 days and the prednisone daily for 5 days. Take the muscle relaxant as 1 to 2 tablets up to 3-4 times daily and be aware that it may make you drowsy. Use the albuterol inhaler every 4-6 hours as needed. Follow up with your primary care provider in 1-2 days. Prescriptions: Albuterol Sulfate [Albuterol Sulfate Hfa] 1 - 2 puff PO Q4-6H PRN #8.5 gm PRN Reason: Shortness Of Breath predniSONE 50 mg PO DAILY 5 Days #5 tab methocarbamoL [Robaxin-750] 1,500 mg PO TID PRN #30 tab PRN Reason: Pain Azithromycin [Zithromax] 250 mg PO DIRECTED 5 Days #6 tab Is patient prescribed a controlled substance at d/c from ED?: No Referrals: Alonzo Cabrera MD [Primary Care Provider] - 1-2 days Time of Disposition: 03:23
[2023-09-22 00:42] LABS: Basophils # (A) 0.1 k/uL (0-0.2); Basophils % (A) 1 %; Eosinophils # (A) 0.3 k/uL (0-0.7); Eosinophils % (A) 4 %; HCT 34.9 % (39.0-53.0); HGB 11.8 gm/dL (13.0-17.5); Lymphocytes # (A) 3.4 k/uL (1.0-4.8); Lymphocytes % (A) 44 %; MCH 33.5 pg (25.0-35.0); MCHC 33.8 g/dL (31.0-37.0); MCV 99.2 fL (80.0-100.0); Mean Platelet Volume 7.1; Monocytes # (A) 0.8 k/uL (0-1.0); Monocytes % (A) 10 %; Neutrophils # (A) 2.9 k/uL (1.3-7.7); Neutrophils % (A) 37 %; Platelet Count 166 k/uL (150-450); RBC 3.52 m/uL (4.30-5.90); WBC 7.7 k/uL (3.8-10.6)
[2023-09-22 00:56] LABS: ALT 52 U/L (4-49); AST 68 U/L (17-59); African American GFR (CKD) >90 (>60 ml/min/1.73 sqM); Albumin 3.6 g/dL (3.5-5.0); Alkaline Phosphatase 61 U/L (38-126); Amylase 54 U/L (30-110); Anion Gap 9 mmol/L; Blood Urea Nitrogen 9 mg/dL (9-20); Calcium 8.3 mg/dL (8.4-10.2); Carbon Dioxide 22 mmol/L (22-30); Chloride 97 mmol/L (98-107); Glucose 91 mg/dL (74-99); Lipase 196 U/L (23-300); Magnesium 1.9 mg/dL (1.6-2.3); Non-African American GFR(CKD) >90 (>60 ml/min/1.73 sqM); Potassium 4.1 mmol/L (3.5-5.1); Sodium 128 mmol/L (137-145); Total Protein 6.1 g/dL (6.3-8.2)
[2023-09-22 01:03] LABS: NT-Pro-B-Type Natriuretic Pept 24 pg/mL
[2023-09-22 01:04] LABS: Alcohol 131 mg/dL
[2023-09-22 01:06] LABS: INR 0.9 (<1.2); Partial Thromboplastin Time 25.5 sec (22.0-30.0); Prothrombin Time 10.1 sec (10.0-12.5)
--- NOTE | 2023-09-22 01:29 | XR ---
EXAM: XR Chest, 2 Views CLINICAL HISTORY: ITS.REASON XR Reason: Chest Pain TECHNIQUE: Frontal and lateral views of the chest. COMPARISON: 02/09/21 FINDINGS: Lungs: Emphysema and expanded lung volumes compatible with chronic obstructive pulmonary disease. No consolidation. Pleural space: Unremarkable. No pleural effusion or pneumothorax. Heart: Unremarkable. No cardiomegaly or pulmonary vascular congestion. Bones/joints: No acute osseous findings. IMPRESSION: No acute findings.
--- NOTE | 2023-09-22 02:03 | CT ---
EXAM: CT Angiography Chest With Intravenous Contrast CLINICAL HISTORY: ITS.REASON CT Reason: Chest pain, FERNANDO, elevated d-dimer TECHNIQUE: Axial computed tomographic angiography images of the chest with intravenous contrast. CTDI is 9.8 mGy and DLP is 238.1 mGy-cm. This CT exam was performed using one or more of the following dose reduction techniques: automated exposure control, adjustment of the mA and/or kV according to patient size, and/or use of iterative reconstruction technique. MIP reconstructed images were created and reviewed. COMPARISON: No relevant prior studies available. FINDINGS: Pulmonary arteries: Unremarkable. No evidence of pulmonary embolism. Aorta: No acute findings. No aortic aneurysm or dissection. Lungs: Centrilobular emphysema. No consolidation or mass. Pleural space: Unremarkable. No significant effusion. No pneumothorax. Heart: Coronary artery atherosclerosis. No cardiomegaly, RV strain, or pericardial effusion. Bones/joints: Hairline nondisplaced fractures lateral left ribs 6-7, potentially acute. No dislocation. Soft tissues: Unremarkable. Lymph nodes: Unremarkable. No enlarged lymph nodes. IMPRESSION: 1. No evidence of pulmonary embolism. 2. Centrilobular emphysema. Emphysema is a risk factor for lung cancer. Consider patient enrollment in low-dose cancer screening. 3. Hairline nondisplaced fracture lateral left ribs 6-7, potentially acute.
--- NOTE | 2023-09-22 02:10 | CT ---
EXAM: CT Abdomen and Pelvis With Intravenous Contrast CLINICAL HISTORY: ITS.REASON CT Reason: Abdominal pain, acute, nonlocalized TECHNIQUE: Axial computed tomography images of the abdomen and pelvis with intravenous contrast. CTDI is 7 mGy and DLP is 413.6 mGy-cm. This CT exam was performed using one or more of the following dose reduction techniques: automated exposure control, adjustment of the mA and/or kV according to patient size, and/or use of iterative reconstruction technique. COMPARISON: No relevant prior studies available. FINDINGS: Lung bases: Unremarkable. No mass. No consolidation. ABDOMEN: Liver: Unremarkable. No mass. Gallbladder and bile ducts: Unremarkable. No calcified stones. No ductal dilation. Pancreas: Unremarkable. No mass. No ductal dilation. Spleen: Unremarkable. No splenomegaly. Adrenals: Unremarkable. No mass. Kidneys and ureters: Unremarkable. No solid mass. No hydronephrosis. Stomach and bowel: Diverticulosis without diverticulitis. No bowel obstruction. PELVIS: Appendix: Normal appendix. Bladder: Unremarkable. No mass. Reproductive: Unremarkable as visualized. ABDOMEN and PELVIS: Intraperitoneal space: Unremarkable. No free air, significant free fluid, or fluid collection. Bones/joints: No acute fracture. No dislocation. Soft tissues: Unremarkable. Vasculature: Atherosclerosis. No aortic aneurysm. Lymph nodes: Unremarkable. No enlarged lymph nodes. IMPRESSION: No acute findings in the abdomen or pelvis.
[2023-09-22 02:23] LABS: Appearance,Urine Clear (Clear); Bilirubin,Urine Negative (Negative); Blood,Urine Negative (Negative); Color,Urine Colorless; Glucose,Urine (UA) Negative (Negative); Ketones,Urine Negative (Negative); Leukocyte Esterase,Urine Negative (Negative); Nitrite,Urine Negative (Negative); PH, Urine 5.5 (5.0-8.0); Protein,Urine Negative (Negative); Specific Gravity,Urine 1.005 (1.001-1.035); Urobilinogen,Urine <2.0 mg/dL (<2.0)
[2023-09-22] MEDS: IPRATROPIUM-ALBUTEROL 3 ML NEB INHALATION STA (02:57)
[2023-09-22 03:47] VITALS: BP 103/66; PULSE 99
[2023-09-22] MEDS: ONDANSETRON 4 MG ODT STARTER PACK 2 TAB BTL PO STA (03:48)
[2023-09-22] MEDS: AZITHROMYCIN 500 MG TAB PO STA (03:49)
[2023-09-22] MEDS: methylPREDNISolone SOD SUCCI 125 MG/2 ML VIAL IV STA (03:49)
== END 2023-09-22 03:49 | disposition home or self-care (01) ==
LOC: EC 23:28
DX: J44.1 Chronic obstructive pulmonary disease with (acute) exacerbation (principal); M54.9 Dorsalgia, unspecified; F17.200 Nicotine dependence, unspecified, uncomplicated; Z88.8 Allergy status to other drugs, medicaments and biological substances
CPT/HCPCS: 36415; 94640; 93005; 85379; 83880; 80053; 82150; 83690; 83735; 84484; 85025; 85610; 85730; 81003; 71046; 71275; 74177; 99285; 96374; 96375 ×2; 96361 ×3; 99406; G0480; J2360; J1885; S0119; Q9967; J2919; 80320

== ENCOUNTER 2024-01-29 20:39 | Inpatient (IN) | payer OTHER ==
--- NOTE | 2024-01-29 21:21 | ED ---
General Adult HPI - General Chief complaint: Recheck/Abnormal Lab/Rx Stated complaint: Medication refill Time Seen by Provider: 01/29/24 20:57 Source: patient Mode of arrival: ambulatory Limitations: no limitations - History of Present Illness Initial comments: 58-year-old male presenting for medication refill. He reports that he has been out of his lisinopril, Lipitor, Artane, and Navane. He has been having issues with his pharmacy. Upon arrival the patient is tachycardic at 135 bpm. Patient states that he is having a bit of chest tightness and shortness of breath, reports that shortness of breath has been ongoing for "a while". He is an everyday smoker. History of COPD. No lower extremity swelling. No URI-like symptoms or fever. No abdominal pain, nausea, vomiting. States that he thinks his heart rate is elevated because he has been out of his medication. - Related Data Home Medications Medication Instructions Recorded Confirmed Aspirin EC [Ecotrin Low Dose] 81 mg PO DAILY 05/18/20 01/30/24 Budesonide/Formoterol Fumarate 2 puff INHALATION RT-BID 08/29/23 01/30/24 [Symbicort 160-4.5 Mcg Inhaler] Albuterol Sulfate [Albuterol 2 puff PO RT-Q6H PRN 01/30/24 01/30/24 Sulfate Hfa] Ergocalciferol (Vitamin D2) 1,250 mcg PO QMONTHLY 01/30/24 01/30/24 [Drisdol (50,000 Iu)] Previous Rx's Medication Instructions Recorded Atorvastatin [Lipitor] 40 mg PO DAILY #30 tablet 01/29/24 Thiothixene [Navane] 2 mg PO BID #60 cap 01/29/24 Trihexyphenidyl [Artane] 2 mg PO BID #60 tab 01/29/24 lisinopriL [Zestril] 20 mg PO DAILY #30 tab 01/29/24 Allergies Allergy/AdvReac Type Severity Reaction Status Date / Time haloperidol [From Haldol] Allergy Anaphylaxis Verified 01/29/24 20:53 Review of Systems ROS Statement: Those systems with pertinent positive or pertinent negative responses have been documented in the HPI. ROS Other: All systems not noted in ROS Statement are negative. Past Medical History Past Medical History: Hyperlipidemia, Hypertension Additional Past Medical History / Comment(s): anxiety and bipolar disorder, etoh since 2012 History of Any Multi-Drug Resistant Organisms: None Reported Past Surgical History: No Surgical Hx Reported Past Anesthesia/Blood Transfusion Reactions: No Reported Reaction Past Psychological History: Anxiety, Bipolar, Depression Smoking Status: Current every day smoker Past Alcohol Use History: Daily, Heavy Past Drug Use History: None Reported - Past Family History Mother Family Medical History: Myocardial Infarction ([place]) Additional Family Medical History / Comment(s): at age 54 Father History Unknown: Yes Family Medical History: Pneumonia Additional Family Medical History / Comment(s): at 71 from pneumonia General Exam Limitations: no limitations General appearance: alert, in no apparent distress Head exam: Present: atraumatic, normocephalic, normal inspection Eye exam: Present: normal appearance, EOMI Neck exam: Present: normal inspection. Absent: meningismus Respiratory exam: Present: normal lung sounds bilaterally. Absent: respiratory distress, wheezes, rales, rhonchi, stridor Cardiovascular Exam: Present: normal rhythm, tachycardia, normal heart sounds. Absent: systolic murmur, diastolic murmur, rubs, gallop, clicks Neurological exam: Present: alert, oriented X3 Psychiatric exam: Present: normal affect, normal mood Skin exam: Present: warm, dry Course Vital Signs 01/29/24 01/29/24 01/29/24 20:51 21:41 22:47 Temperature 98.1 F 98.6 F Pulse Rate 135 H 137 H 122 H Respiratory 20 25 H 24 Rate Blood Pressure 135/77 134/83 105/62 O2 Sat by Pulse 95 96 95 Oximetry 01/29/24 01/30/24 01/30/24 23:53 02:01 02:22 Temperature 101.4 F H 102.3 F H Pulse Rate 114 H 111 H 115 H Respiratory 24 25 H 20 Rate Blood Pressure 114/77 96/60 84/52 O2 Sat by Pulse 96 96 94 L Oximetry 01/30/24 01/30/24 01/30/24 02:27 03:30 04:00 Temperature Pulse Rate 108 H 97 88 Respiratory 18 18 18 Rate Blood Pressure 82/50 77/44 74/46 O2 Sat by Pulse 95 98 98 Oximetry 01/30/24 01/30/24 01/30/24 04:15 04:30 05:00 Temperature 98.8 F Pulse Rate 86 88 Respiratory 18 18 Rate Blood Pressure 68/45 78/51 O2 Sat by Pulse 98 98 Oximetry 01/30/24 01/30/24 01/30/24 05:30 05:45 05:50 Temperature Pulse Rate 98 68 66 Respiratory 18 18 18 Rate Blood Pressure 73/42 69/49 88/55 O2 Sat by Pulse 98 98 98 Oximetry 01/30/24 01/30/24 01/30/24 05:55 06:00 06:05 Temperature Pulse Rate 64 69 67 Respiratory 18 18 18 Rate Blood Pressure 77/57 78/55 82/54 O2 Sat by Pulse 98 97 95 Oximetry 01/30/24 01/30/24 01/30/24 06:15 06:20 06:27 Temperature Pulse Rate 66 63 64 Respiratory 18 18 18 Rate Blood Pressure 87/59 82/59 92/55 O2 Sat by Pulse 98 98 95 Oximetry 01/30/24 01/30/24 01/30/24 06:40 07:49 07:56 Temperature Pulse Rate 78 68 84 Respiratory 18 18 18 Rate Blood Pressure 96/70 94/62 83/64 O2 Sat by Pulse 98 90 L 93 L Oximetry 01/30/24 01/30/24 01/30/24 08:21 09:06 09:17 Temperature Pulse Rate 67 78 68 Respiratory 19 18 19 Rate Blood Pressure 103/64 87/46 99/45 O2 Sat by Pulse 97 96 97 Oximetry Medical Decision Making - Medical Decision Making Was pt. sent in by a medical professional or institution (, PA, MEDICAL ECONOMICS CONSULTANT, urgent care, hospital, or [facility]...) When possible be specific @ -No Did you speak to anyone other than the patient for history (EMS, parent, family, police, friend...)? What history was obtained from this source @ -No Did you review nursing and triage notes (agree or disagree)? Why? @ -I reviewed and agree with nursing and triage notes Were old charts reviewed (outside hosp., previous admission, EMS record, old EKG, old radiological studies, urgent care reports/EKG's, [facility] records)? Report findings @ -No old charts were reviewed Differential Diagnosis (chest pain, altered mental status, abdominal pain women, abdominal pain men, vaginal bleeding, weakness, fever, dyspnea, syncope, headache, dizziness, GI bleed, back pain, seizure, CVA, palpatations, mental health, musculoskeletal)? @ -Differential Palpitations Ventricular arrhythmias, atrial arrhythmias, myocardial infarction, anemia, thyrotoxicosis, electrolyte imbalance, hypokalemia, pulmonary embolism, pulmonary disease, drugs, alcohol, anxiety, stress.... This is not meant to be an all-inclusive list. EKG interpreted by me (3pts min.). @ -As above X-rays interpreted by me (1pt min.). @ -Chest x-ray dependent airspace consolidations consistent with multilobar pneumonia. Correlate for aspiration CT interpreted by me (1pt min.). @ -CTA shows no pulmonary embolism. Dependent airspace consolidations, consistent with multilobar pneumonia. Correlate for aspiration U/S interpreted by me (1pt. min.). @ -None done What testing was considered but not performed or refused? (CT, X-rays, U/S, labs)? Why? @ -None What meds were considered but not given or refused? Why? @ -None Did you discuss the management of the patient with other professionals (professionals i.e. , PA, MEDICAL ECONOMICS CONSULTANT, lab, RT, psych nurse, 7th grade social studies teacher, analysis analyst, teacher, environmental health officer, case management director)? Give summary @ -Spoke with Dr. Cabrera who accepts admission Was smoking cessation discussed for >3mins.? @ -No Was critical care preformed (if so, how long)? @ -No Were there social determinants of health that impacted care today? How? (Homelessness, low income, unemployed, alcoholism, drug addiction, transportation, low edu. Level, literacy, decrease access to med. care, usp, rehab)? @ -No Was there de-escalation of care discussed even if they declined (Discuss DNR or withdrawal of care, Hospice)? DNR status @ -No What co-morbidities impacted this encounter? (DM, HTN, Smoking, COPD, CAD, Cancer, CVA, ARF, Chemo, Hep., AIDS, mental health diagnosis, sleep apnea, morbid obesity)? @ -None Was patient admitted / discharged? Hospital course, mention meds given and route, prescriptions, significant lab abnormalities, going to OR and other pertinent info. @ -58-year-old male presenting for med refill. On arrival patient is tachycardic and admits to shortness of breath. He does admit to some chest discomfort as well. He is a daily smoker. History and physical examination are conducted. Lab work shows white count of 16.1. Negative troponin. Negative urine toxicology with serum alcohol based at home. Sodium 127, patient is receiving IV fluids. Potassium 3.3, patient received 40 mg of K-Dur. D-dimer was elevated at 1.54. CTA is negative for pulmonary embolism, there are dependent airspace opacities consistent with multilobar pneumonia. Patient meets sepsis criteria, given fluid bolus of 3 L and maintained on a rate of 130 mL/h. Patient is started on 2 g of Rocephin and 500 mg azithromycin IV After blood cultures are drawn. Patient mated for pneumonia with sepsis. He is agreeable with this plan. I discussed this case with my attending Dr. Handy Undiagnosed new problem with uncertain prognosis? @ -No Drug Therapy requiring intensive monitoring for toxicity (Heparin, Nitro, Insulin, Cardizem)? @ -No Were any procedures done? @ -No Diagnosis/symptom? @ -Pneumonia, sepsis Acute, or Chronic, or Acute on Chronic? @ -Acute Uncomplicated (without systemic symptoms) or Complicated (systemic symptoms)? @ -Complicated Side effects of treatment? @ -No Exacerbation, Progression, or Severe Exacerbation? @ -No Poses a threat to life or bodily function? How? (Chest pain, [place], [place], pneumonia, PE, COPD, DKA, ARF, appy, cholecystitis, CVA, Diverticulitis, Homicidal, Suicidal, threat to staff... and all critical care pts) @ -Yes - Lab Data Result diagrams: 01/30/24 08:49 01/30/24 08:49 Lab Results 01/29/24 01/29/24 01/29/24 Range/Units 22:01 22:01 22:01 WBC 16.1 H (3.8-10.6) k/uL RBC 4.10 L (4.30-5.90) m/uL Hgb 13.8 (13.0-17.5) gm/dL Hct 40.5 (39.0-53.0) % MCV 98.9 (80.0-100.0) fL MCH 33.6 (25.0-35.0) pg MCHC 34.0 (31.0-37.0) g/dL RDW 11.7 (11.5-15.5) % Plt Count 218 (150-450) k/uL MPV 8.0 Neutrophils % 78 % Lymphocytes % 10 % Monocytes % 10 % Eosinophils % 0 % Basophils % 0 % Neutrophils # 12.5 H (1.3-7.7) k/uL Lymphocytes # 1.6 (1.0-4.8) k/uL Monocytes # 1.6 H (0-1.0) k/uL Eosinophils # 0.1 (0-0.7) k/uL Basophils # 0.1 (0-0.2) k/uL PT 9.9 L (10.0-12.5) sec INR 0.9 (<1.2) APTT 24.5 (22.0-30.0) sec D-Dimer 1.54 H (<0.60) mg/L FEU Sodium 127 L (137-145) mmol/L Potassium 3.3 L (3.5-5.1) mmol/L Chloride 95 L (98-107) mmol/L Carbon Dioxide 21 L (22-30) mmol/L Anion Gap 11 mmol/L BUN 6 L (9-20) mg/dL Creatinine 0.70 (0.66-1.25) mg/dL Est GFR (CKD-EPI)AfAm >90 (>60 ml/min/1.73 sqM) Est GFR (CKD-EPI)NonAf >90 (>60 ml/min/1.73 sqM) Glucose 120 H (74-99) mg/dL Plasma Lactic Acid Joshua (0.7-2.0) mmol/L Calcium 8.4 (8.4-10.2) mg/dL Magnesium 1.8 (1.6-2.3) mg/dL Total Bilirubin 0.7 (0.2-1.3) mg/dL AST 42 (17-59) U/L ALT 26 (4-49) U/L Alkaline Phosphatase 96 (38-126) U/L Troponin I (0.000-0.034) ng/mL Total Protein 6.9 (6.3-8.2) g/dL Albumin 3.8 (3.5-5.0) g/dL Urine Opiates Screen (NotDetected) Ur Oxycodone Screen (NotDetected) Urine Methadone Screen (NotDetected) Ur Barbiturates Screen (NotDetected) U Tricyclic Antidepress (NotDetected) Ur Phencyclidine Scrn (NotDetected) Ur Amphetamines Screen (NotDetected) U Methamphetamines Scrn (NotDetected) U Benzodiazepines Scrn (NotDetected) Urine Cocaine Screen (NotDetected) U Marijuana (THC) Screen (NotDetected) Serum Alcohol 87 mg/dL 01/29/24 01/29/24 01/30/24 Range/Units 22:01 22:14 02:01 WBC (3.8-10.6) k/uL RBC (4.30-5.90) m/uL Hgb (13.0-17.5) gm/dL Hct (39.0-53.0) % MCV (80.0-100.0) fL MCH (25.0-35.0) pg MCHC (31.0-37.0) g/dL RDW (11.5-15.5) % Plt Count (150-450) k/uL MPV Neutrophils % % Lymphocytes % % Monocytes % % Eosinophils % % Basophils % % Neutrophils # (1.3-7.7) k/uL Lymphocytes # (1.0-4.8) k/uL Monocytes # (0-1.0) k/uL Eosinophils # (0-0.7) k/uL Basophils # (0-0.2) k/uL PT (10.0-12.5) sec INR (<1.2) APTT (22.0-30.0) sec D-Dimer (<0.60) mg/L FEU Sodium (137-145) mmol/L Potassium (3.5-5.1) mmol/L Chloride (98-107) mmol/L Carbon Dioxide (22-30) mmol/L Anion Gap mmol/L BUN (9-20) mg/dL Creatinine (0.66-1.25) mg/dL Est GFR (CKD-EPI)AfAm (>60 ml/min/1.73 sqM) Est GFR (CKD-EPI)NonAf (>60 ml/min/1.73 sqM) Glucose (74-99) mg/dL Plasma Lactic Acid Joshua 1.1 (0.7-2.0) mmol/L Calcium (8.4-10.2) mg/dL Magnesium (1.6-2.3) mg/dL Total Bilirubin (0.2-1.3) mg/dL AST (17-59) U/L ALT (4-49) U/L Alkaline Phosphatase (38-126) U/L Troponin I <0.012 (0.000-0.034) ng/mL Total Protein (6.3-8.2) g/dL Albumin (3.5-5.0) g/dL Urine Opiates Screen Not Detected (NotDetected) Ur Oxycodone Screen Not Detected (NotDetected) Urine Methadone Screen Not Detected (NotDetected) Ur Barbiturates Screen Not Detected (NotDetected) U Tricyclic Antidepress Not Detected (NotDetected) Ur Phencyclidine Scrn Not Detected (NotDetected) Ur Amphetamines Screen Not Detected (NotDetected) U Methamphetamines Scrn Not Detected (NotDetected) U Benzodiazepines Scrn Not Detected (NotDetected) Urine Cocaine Screen Not Detected (NotDetected) U Marijuana (THC) Screen Not Detected (NotDetected) Serum Alcohol mg/dL Disposition Clinical Impression: Aspiration pneumonia, Sepsis Disposition: ADMITTED IP TO THIS HOSP Condition: Serious Is patient prescribed a controlled substance at d/c from ED?: No Time of Disposition: 01:30
[2024-01-29] MEDS: lisinopriL 20 MG TAB PO STA (21:48)
[2024-01-29] MEDS: THIOTHIXENE 1 MG CAP PO STA (21:48)
[2024-01-29] MEDS: ATORVASTATIN 40 MG TAB PO STA (21:48)
[2024-01-29] MEDS: TRIHEXYPHENIDYL 2 MG TAB PO STA (21:49)
[2024-01-29] MEDS: SODIUM CHLORIDE 0.9% 1,000 ML IV STA (22:05)
[2024-01-29 22:41] LABS: Basophils # (A) 0.1 k/uL (0-0.2); Basophils % (A) 0 %; Eosinophils # (A) 0.1 k/uL (0-0.7); Eosinophils % (A) 0 %; HCT 40.5 % (39.0-53.0); HGB 13.8 gm/dL (13.0-17.5); Lymphocytes # (A) 1.6 k/uL (1.0-4.8); Lymphocytes % (A) 10 %; MCH 33.6 pg (25.0-35.0); MCV 98.9 fL (80.0-100.0); Monocytes # (A) 1.6 k/uL (0-1.0); Monocytes % (A) 10 %; Neutrophils # (A) 12.5 k/uL (1.3-7.7); Neutrophils % (A) 78 %; Platelet Count 218 k/uL (150-450); RDW 11.7 % (11.5-15.5); WBC 16.1 k/uL (3.8-10.6)
[2024-01-29 22:55] LABS: INR 0.9 (<1.2); Partial Thromboplastin Time 24.5 sec (22.0-30.0); Prothrombin Time 9.9 sec (10.0-12.5)
[2024-01-29 23:05] LABS: ALT 26 U/L (4-49); AST 42 U/L (17-59); African American GFR (CKD) >90 (>60 ml/min/1.73 sqM); Albumin 3.8 g/dL (3.5-5.0); Alkaline Phosphatase 96 U/L (38-126); Anion Gap 11 mmol/L; Blood Urea Nitrogen 6 mg/dL (9-20); Calcium 8.4 mg/dL (8.4-10.2); Carbon Dioxide 21 mmol/L (22-30); Chloride 95 mmol/L (98-107); Glucose 120 mg/dL (74-99); Magnesium 1.8 mg/dL (1.6-2.3); Non-African American GFR(CKD) >90 (>60 ml/min/1.73 sqM); Potassium 3.3 mmol/L (3.5-5.1); Sodium 127 mmol/L (137-145); Total Bilirubin 0.7 mg/dL (0.2-1.3); Total Protein 6.9 g/dL (6.3-8.2)
[2024-01-29 23:17] LABS: Amphetamine Screen,Urine Not Detected (NotDetected); Barbiturate Screen,Urine Not Detected (NotDetected); Benzodiazepines Screen,Urine Not Detected (NotDetected); Cocaine Screen,Urine Not Detected (NotDetected); Methadone Screen, Urine Not Detected (NotDetected); Opiate Screen,Urine Not Detected (NotDetected); Oxycodone Screen, Urine Not Detected (NotDetected); Phencyclidine Screen,Urine Not Detected (NotDetected); Tricyclic Antidepressant,Urine Not Detected (NotDetected); Urn Cannabinoid Scrn Not Detected (NotDetected)
[2024-01-29 23:18] LABS: Alcohol 87 mg/dL
[2024-01-29] MEDS: POTASSIUM CHLORIDE ER 20 MEQ TAB.ER PO STA (23:51)
--- NOTE | 2024-01-30 00:11 | XR ---
EXAM: XR Chest, 2 Views CLINICAL HISTORY: ITS.REASON XR Reason: dysrhythmia TECHNIQUE: Frontal and lateral views of the chest. COMPARISON: No relevant prior studies available. FINDINGS: Lungs: Dependent airspace consolidations, consistent with multilobar pneumonia. Pleural space: Unremarkable. No pneumothorax. Heart: Unremarkable. No cardiomegaly. Mediastinum: Unremarkable. Normal mediastinal contour. Bones/joints: Unremarkable. No acute fracture. Vasculature: Unremarkable. No pulmonary embolism. IMPRESSION: 1. No pulmonary embolism. 2. Dependent airspace consolidations, consistent with multilobar pneumonia. Correlate for aspiration.
--- NOTE | 2024-01-30 00:22 | CT ---
EXAM: CT Angiography Chest With Intravenous Contrast CLINICAL HISTORY: ITS.REASON CT Reason: tachy TECHNIQUE: Axial computed tomographic angiography images of the chest with intravenous contrast. CTDI is 7.8 mGy and DLP is 234.4 mGy-cm. This CT exam was performed using one or more of the following dose reduction techniques: automated exposure control, adjustment of the mA and/or kV according to patient size, and/or use of iterative reconstruction technique. MIP reconstructed images were created and reviewed. COMPARISON: No relevant prior studies available. FINDINGS: Pulmonary arteries: Unremarkable. No pulmonary embolism. Aorta: Atherosclerotic changes of the aorta. No thoracic aortic aneurysm. Lungs: Dependent airspace consolidations at the lung bases, correlate for aspiration pneumonia. Pleural space: Unremarkable. No significant effusion. No pneumothorax. Heart: Unremarkable. No cardiomegaly. No significant pericardial effusion. No evidence of RV dysfunction. Bones/joints: Degenerative changes of the spine. No acute fracture. No dislocation. Soft tissues: Unremarkable. Lymph nodes: Unremarkable. No enlarged lymph nodes. IMPRESSION: 1. No pulmonary embolism. 2. Dependent airspace consolidations at the lung bases, correlate for aspiration pneumonia.
[2024-01-30] MEDS ORDERED: NALOXONE 0.4 MG/ML 1 ML VIAL IV PRN (01:33)
[2024-01-30] MEDS: SODIUM CHLORIDE 0.9% 1,000 ML IV SCH (01:52)
[2024-01-30] MEDS: SODIUM CHLORIDE 0.9% 2,000 ML IV ONE (01:52)
[2024-01-30] MEDS: AZITHROMYCIN 500 MG in SODIUM CHLORIDE 0.9% 250 ML IVPB STA (01:53)
[2024-01-30] MEDS: IBUPROFEN 400 MG TAB PO STA (02:07)
[2024-01-30] MEDS: ACETAMINOPHEN TAB 500 MG TAB PO STA (02:08)
[2024-01-30] MEDS: NOREPINEPHRINE 4 MG in SODIUM CHLORIDE 0.9% 250 ML IV SCH (05:40)
[2024-01-30] MEDS ORDERED: Potassium Replacement Protocol 1 EACH MISC MISCELLANE PRN (07:31)
--- NOTE | 2024-01-30 07:48 | P.CNPUL ---
History of Present Illness Consult date: 01/30/24 Requesting physician: Kd Camejo Reason for consult: pneumonia Chief complaint: Home medication refill History of present illness: Patient is a 58-year-old male with past medical history significant for hypertension, hyperlipidemia, COPD, current ongoing tobacco dependence, bipolar, schizophrenia. His primary care provider is Dr. Cabrera. Patient presented to the ED last night reportedly for a medication refill. He has ran out of his home medications. He states that he had walked to the emergency room. He states that he lives in an apartment. He has poor hygeine and is disheveled. On arrival, he was found to be tachycardic. He was having some shortness of breath with chest tightness. He has had a congested cough with white sputum production. Subjective fevers and intermittent chills. Chest pain when coughing. Chest x-ray showing bibasilar infiltrates concerning for pneumonia. Elevated D-dimer on arrival preempting chest CT angio protocol which did not show any evidence of filling defects consistent with pulmonary embolism. It did show bibasilar airspace opacities concerning for pneumonia. CBC: WBC count 16.1, hemoglobin 13.8, hematocrit 40.5, platelets 219. CMP: Sodium 127, potassium 3.3, chloride 195, serum bicarb 21, BUN 6, creatinine 0.7, Glu close 120. Lactic 1.1. Normal saline will be continued at 130 mL/h. LFTs unremarkable. Troponin less than 0.012. EKG: Sinus tachycardia, rate 120 bpm, no obvious acute ischemic changes. Urine toxicology screen negative. Serum alcohol level was 87. Patient admits to drinking 2, denies history of 24 ounce beers per day. Alcohol withdrawal symptoms, seizures, esophageal varices. Patient is currently being evaluated in the emergency department room 4. He was noted to be hypotensive. He is already received a total of 3 L of normal saline bolus. Despite this, remains hypotensive. Asked the nurse to start the patient on norepinephrine which is currently infusing at 0.13 mcg/kg/min. Current blood pressure is up to 91/60 mmHg. Heart rhythm sinus mechanism at 80 bpm. He is on room air, SpO2 94%. Covered on empiric antibiotics in the form of Rocephin and azithromycin. Afebrile. No apparent respiratory distress. Patient will may need to be transferred to the intensive care unit. Review of Systems Constitutional: Reports chills, Reports fatigue, Reports fever, Denies poor appetite, Denies weight gain, Denies weight loss Ears, nose, mouth and throat: Denies headache, Denies nasal congestion, Denies nasal discharge, Denies post-nasal drip, Denies sinus pain, Denies sinus pressure, Denies sore throat Cardiovascular: Reports chest pain, Denies irregular heart beat, Denies l ightheadedness, Denies orthopnea, Denies palpitations, Denies paroxysmal nocturnal dyspnea, Denies rapid heart beat, Denies syncope Respiratory: Reports congestion, Reports cough, Reports cough with sputum, Reports pain on inspiration, Denies hemoptysis, Denies wheezing Gastrointestinal: Reports abdominal pain, Reports loss of appetite, Denies solomon ge in bowel habits, Denies constipation, Denies diarrhea, Denies hematemesis, Denies nausea, Denies vomiting Genitourinary: Denies dysuria Musculoskeletal: Denies limitation of motion Integumentary: Denies rash Neurological: Denies seizures, Denies syncope Psychiatric: Reports anxiety, Reports depression Past Medical History Past Medical History: Hyperlipidemia, Hypertension Additional Past Medical History / Comment(s): anxiety and bipolar disorder, etoh since 2012 History of Any Multi-Drug Resistant Organisms: None Reported Past Surgical History: No Surgical Hx Reported Past Anesthesia/Blood Transfusion Reactions: No Reported Reaction Past Psychological History: Anxiety, Bipolar, Depression Smoking Status: Current every day smoker Past Alcohol Use History: Daily, Heavy Past Drug Use History: None Reported - Past Family History Mother Family Medical History: Myocardial Infarction ([place]) Additional Family Medical History / Comment(s): at age 54 Father History Unknown: Yes Family Medical History: Pneumonia Additional Family Medical History / Comment(s): at 71 from pneumonia Medications and Allergies Home Medications Medication Instructions Recorded Confirmed Type Aspirin EC [Ecotrin Low Dose] 81 mg PO DAILY 05/18/20 01/30/24 History Budesonide/Formoterol Fumarate 2 puff INHALATION RT-BID 08/29/23 01/30/24 History [Symbicort 160-4.5 Mcg Inhaler] Atorvastatin [Lipitor] 40 mg PO DAILY #30 tablet 01/29/24 Rx Thiothixene [Navane] 2 mg PO BID #60 cap 01/29/24 Rx Trihexyphenidyl [Artane] 2 mg PO BID #60 tab 01/29/24 Rx lisinopriL [Zestril] 20 mg PO DAILY #30 tab 01/29/24 Rx Albuterol Sulfate [Albuterol 2 puff PO RT-Q6H PRN 01/30/24 01/30/24 History Sulfate Hfa] Ergocalciferol (Vitamin D2) 1,250 mcg PO QMONTHLY 01/30/24 01/30/24 History [Drisdol (50,000 Iu)] Allergies Allergy/AdvReac Type Severity Reaction Status Date / Time haloperidol [From Haldol] Allergy Anaphylaxis Verified 01/29/24 20:53 Physical Exam Vitals: Vital Signs Temp Pulse Resp BP Pulse Ox 01/30/24 06:40 78 18 96/70 98 01/30/24 06:27 64 18 92/55 95 01/30/24 06:20 63 18 82/59 98 01/30/24 06:15 66 18 87/59 98 01/30/24 06:05 67 18 82/54 95 01/30/24 06:00 69 18 78/55 97 01/30/24 05:55 64 18 77/57 98 01/30/24 05:50 66 18 88/55 98 01/30/24 05:45 68 18 69/49 98 01/30/24 05:30 98 18 73/42 98 01/30/24 05:00 88 18 78/51 98 01/30/24 04:30 86 18 68/45 98 01/30/24 04:15 98.8 F 01/30/24 04:00 88 18 74/46 98 01/30/24 03:30 97 18 77/44 98 01/30/24 02:27 108 H 18 82/50 95 01/30/24 02:22 102.3 F H 115 H 20 84/52 94 L 01/30/24 02:01 101.4 F H 111 H 25 H 96/60 96 01/29/24 23:53 114 H 24 114/77 96 01/29/24 22:47 98.6 F 122 H 24 105/62 95 01/29/24 21:41 137 H 25 H 134/83 96 01/29/24 20:51 98.1 F 135 H 20 135/77 95 Intake and Output 1101/30/24 01/30/24 22:59 06:59 14:59 Intake Total 27.476 Balance 27.476 Intake: Intake, IV Titration 27.476 Amount Norepinephrine 4 mg In 27.476 Sodium Chloride 0.9% 250 ml @ 0.03 MCG/KG/MIN 7. 777 mls/hr IV .Q24H [facility] Rx#:[id number] Other: Weight 68.039 kg GENERAL EXAM: Alert, 58-year-old male, disheveled and poor hygiene, fairly comfortable in no apparent distress. HEAD: Normocephalic and atraumatic EYES: Normal reaction of pupils, equal size. NOSE: Clear with pink turbinates. THROAT: No erythema or exudates. NECK: No masses, no JVD. CHEST: No chest wall deformity. LUNGS: Equal air entry with diminished lung sounds bilaterally throughout. Scattered rhonchi. On room air. No conversational dyspnea or accessory muscle use. Has a persistent congested cough, nonproductive CVS: S1 and S2 normal with no audible murmur, regular rhythm. No extra heart sounds ABDOMEN: No hepatosplenomegaly, active bowel sounds, no guarding or rigidity. SPINE: No scoliosis or deformity SKIN: No rashes CENTRAL NERVOUS SYSTEM: No focal deficits, tone is normal in all 4 extremities. EXTREMITIES: There is no peripheral edema, clubbing, or cyanosis. Peripheral pulses are intact. Results - Laboratory Findings CBC and BMP: 01/30/24 08:49 01/30/24 08:49 PT/INR, D-dimer PT 9.9 sec (10.0-12.5) L 01/29/24 22:01 INR 0.9 (<1.2) 01/29/24 22:01 D-Dimer 1.54 mg/L FEU (<0.60) H 01/29/24 22:01 Abnormal lab findings: Abnormal Labs 01/29/24 01/29/24 01/29/24 22:01 22:01 22:01 WBC 16.1 H RBC 4.10 L Neutrophils # 12.5 H Monocytes # 1.6 H PT 9.9 L D-Dimer 1.54 H Sodium 127 L Potassium 3.3 L Chloride 95 L Carbon Dioxide 21 L BUN 6 L Glucose 120 H - Diagnostic Findings Chest x-ray: image reviewed CT scan - chest: image reviewed Assessment and Plan Assessment: Bibasilar community-acquired pneumonia and sepsis, chest CT angio protocol which did not show any evidence of filling defects consistent with pulmonary embolism. It did show bibasilar airspace opacities concerning for pneumonia. Hypotension and septic shock, secondary to above, patient has been aggressively fluid resuscitated with a total of 3 L normal saline bolus. Currently being started on norepinephrine. Acute COPD exacerbation, secondary to pneumonia Current ongoing tobacco dependence, currently smokes 2 packs/day Acute leukocytosis Hyponatremia, hypovolemic, possible beer potomania Hypokalemia, replace per protocol Alcohol intoxication, serum alcohol level was 87 on arrival History of hypertension History of hyperlipidemia History of bipolar History of schizophrenia Plan: Patient currently in the emergency department as a overflow, he will need to be transferred to the intensive care unit once bed available Patient was aggressively fluid resuscitated with a total of 3 L normal saline bolus, continues to receive normal saline at a rate of 130 mL/h. Patient has been started on norepinephrine which is currently infusing at 0.13 mcg/kg/min, titrate for MAP of 65 mmHg or higher Sputum and blood cultures are pending, check urine Legionella antigen, check Cepheid 4 Plex Continue on antibiotics for community-acquired pneumonia including azithromycin and Rocephin Start patient on combination of bronchodilators, Symbicort inhaler, and IV Solu- Medrol On room air oxygen Monitor CIWA per protocol Prognosis is guarded. Will continue monitor patient in the intensive care unit. I have personally seen and examined the patient, performed the documentation and the assessment and plan as written. Number of minutes spent on the visit:20 On 01/30/2024, the patient is being seen in the joint evaluation along with the nurse practitioner. This patient presented to us with dyspnea, tachycardia, hypotension and bilateral lower lobe pneumonia. The pulmonary filtrates are worse on the right. CT angiogram of the chest was done and showed no evidence of any pulm embolism. Patient is alcoholic and he was high in alcohol level at time of admission. Consider aspiration pneumonia. At this point in time, the patient has received a total of 3 L of IV fluids and remains on normal saline at rate of 130 cc an hour. Norepinephrine is running at 0.12 mcg/kg/min. Will discontinue the Rocephin and switch this patient to Zosyn in combination with Zithromax. Awake and alert and communicating. He is pulse ox is 96% on 2 L of oxygen by nasal cannula. Will watch for any signs of any delirium tremens. Will wean off the pressors. Will continue to follow. Cultures were sent. Time with Patient: Greater than 30
[2024-01-30] MEDS ORDERED: IPRATROPIUM-ALBUTEROL 3 ML NEB INHALATION PRN (07:50)
[2024-01-30] MEDS: methylPREDNISolone SOD SUCCI 40 MG/ML 1 ML VIAL IV SCH (09:10)
[2024-01-30] MEDS: HEPARIN SODIUM,PORCINE 5,000 UNIT/ML 1 ML VIAL SQ SCH (09:10)
[2024-01-30] MEDS: PANTOPRAZOLE 40 MG/10 ML VIAL IV SCH (09:11)
[2024-01-30 09:27] LABS: Basophils # (A) 0.1 k/uL (0-0.2); Basophils % (A) 0 %; Eosinophils # (A) 0.1 k/uL (0-0.7); Eosinophils % (A) 0 %; HCT 34.8 % (39.0-53.0); HGB 11.5 gm/dL (13.0-17.5); Lymphocytes # (A) 2.4 k/uL (1.0-4.8); Lymphocytes % (A) 15 %; MCH 33.2 pg (25.0-35.0); MCV 100.6 fL (80.0-100.0); Mean Platelet Volume 7.6; Monocytes # (A) 1.4 k/uL (0-1.0); Monocytes % (A) 8 %; Neutrophils # (A) 12.3 k/uL (1.3-7.7); Neutrophils % (A) 74 %; Platelet Count 208 k/uL (150-450); RBC 3.46 m/uL (4.30-5.90); RDW 11.8 % (11.5-15.5); WBC 16.6 k/uL (3.8-10.6)
[2024-01-30 09:31] LABS: African American GFR (CKD) >90 (>60 ml/min/1.73 sqM); Anion Gap 2 mmol/L; Blood Urea Nitrogen 7 mg/dL (9-20); Calcium 7.5 mg/dL (8.4-10.2); Carbon Dioxide 20 mmol/L (22-30); Chloride 109 mmol/L (98-107); Glucose 112 mg/dL (74-99); Non-African American GFR(CKD) >90 (>60 ml/min/1.73 sqM); Potassium 3.9 mmol/L (3.5-5.1); Sodium 131 mmol/L (137-145)
[2024-01-30] MEDS: SODIUM CHLORIDE 0.9% 1,000 ML IV ONE (10:27)
[2024-01-30] MEDS: POTASSIUM CHLORIDE ER 20 MEQ TAB.ER PO SCH (10:35)
[2024-01-30] MEDS: LORazepam 0.5 MG TAB PO PRN (10:36)
[2024-01-30] MEDS: SYMBICORT 160-4.5 MCG INHALER INHALATION SCH (11:38)
[2024-01-30] MEDS: IPRATROPIUM-ALBUTEROL 3 ML NEB INHALATION SCH (11:38)
[2024-01-30] MEDS: PIPERACILLIN-TAZOBACTAM 3.375 GM in SODIUM CHLORIDE 0.9% 100 ML IVPB SCH (16:01)
[2024-01-30] MEDS: LORazepam 1 MG TAB PO PRN ×2 (18:48→21:04)
--- NOTE | 2024-01-30 19:14 | HP ---
HISTORY AND PHYSICAL CHIEF COMPLAINT: Fever, chills, cough, and sepsis. HISTORY OF PRESENT ILLNESS: This is another admission for this 58-year-old chronic alcoholic who is a very heavy smoker. He came to emergency room after he developed a cough, fever, and shortness of breath and was found to have bronchial pneumonia and he met sepsis criteria. REVIEW OF SYSTEMS: He denies any headaches, hemoptysis, abdominal pain, urinary complaints, etc. Past medical history, family history, personal and social histories are otherwise unremarkable. He does not take any medications. PHYSICAL EXAMINATION: VITAL SIGNS: Blood pressure was 82/50 with a pulse of 110, respirations 36, and temperature of 100. GENERAL: Appeared to be chronically ill and short of breath. HEAD, EARS, EYES, NOSE, MOUTH, AND THROAT: Normal. CHEST: Decreased breath sounds with scattered rales and rhonchi. CARDIAC: Tachycardia. ABDOMEN: Flat, soft, and nontender. EXTREMITIES: Normal. IMPRESSION: 1. Bronchial pneumonia with sepsis. 2. Chronic obstructive pulmonary disease. 3. Alcoholism. PLAN: 1. Bedrest. 2. IV fluids. 3. Blood cultures. 4. IV antibiotics. 5. Intensive Medicine consult. MMODL / IJN: [id number] /
[2024-01-30] MEDS: LORazepam 2 MG/ML INJ IV PRN (23:09)
[2024-01-30 23:37] LABS: Appearance,Urine Clear (Clear); Bilirubin,Urine Negative (Negative); Blood,Urine Negative (Negative); Color,Urine Light Yellow; Glucose,Urine (UA) Negative (Negative); Ketones,Urine 1+ (Negative); Leukocyte Esterase,Urine Negative (Negative); Nitrite,Urine Negative (Negative); PH, Urine 5.5 (5.0-8.0); Protein,Urine Trace (Negative); Specific Gravity,Urine 1.011 (1.001-1.035); Urobilinogen,Urine <2.0 mg/dL (<2.0)
[2024-01-31] MEDS: LORazepam 1 MG TAB PO PRN (00:41)
[2024-01-31] MEDS: TRIHEXYPHENIDYL 2 MG TAB PO SCH (00:43)
[2024-01-31] MEDS: THIOTHIXENE 1 MG CAP PO SCH (00:43)
[2024-01-31 05:10] LABS: Basophils % (A) 0 %; Eosinophils % (A) 0 %; HCT 33.2 % (39.0-53.0); Lymphocytes # (A) 1.2 k/uL (1.0-4.8); Lymphocytes % (A) 8 %; MCH 33.8 pg (25.0-35.0); MCHC 33.2 g/dL (31.0-37.0); MCV 101.9 fL (80.0-100.0); Mean Platelet Volume 7.6; Monocytes # (A) 0.6 k/uL (0-1.0); Monocytes % (A) 4 %; Neutrophils % (A) 86 %; Platelet Count 221 k/uL (150-450); RBC 3.26 m/uL (4.30-5.90); WBC 13.9 k/uL (3.8-10.6)
[2024-01-31 05:35] LABS: African American GFR (CKD) >90 (>60 ml/min/1.73 sqM); Anion Gap 5 mmol/L; Blood Urea Nitrogen 6 mg/dL (9-20); Carbon Dioxide 17 mmol/L (22-30); Chloride 115 mmol/L (98-107); Glucose 225 mg/dL (74-99); Non-African American GFR(CKD) >90 (>60 ml/min/1.73 sqM); Potassium 3.5 mmol/L (3.5-5.1); Sodium 137 mmol/L (137-145)
[2024-01-31] MEDS ORDERED: Potassium Replacement Protocol 1 EACH MISC MISCELLANE PRN (05:51)
[2024-01-31] MEDS: POTASSIUM CHLORIDE ER 20 MEQ TAB.ER PO SCH (06:04)
--- NOTE | 2024-01-31 07:49 | XR ---
EXAMINATION TYPE: XR chest 1V DATE OF EXAM: 01/31/2024 COMPARISON: 01/29/2024 CLINICAL INDICATION: Male, 58 years old with history of bibasilar pneumonia; FINDINGS: Heart mildly enlarged. Mild interstitial opacity has increased. Patchy medial right basilar opacity p ersists. No pleural effusion. IMPRESSION: 1. Mild cardiomegaly and ongoing airspace disease medial right base. 2. Interval increase in interstitial density. Correlate to exclude early CHF. [facility], , 01/31/2024 7:47 AM
[2024-01-31] MEDS: THIAMINE 100 MG TAB PO SCH (09:11)
[2024-01-31] MEDS: AZITHROMYCIN 500 MG TAB PO SCH (09:32)
[2024-01-31 12:13] VITALS: BMI 19.5
--- NOTE | 2024-01-31 14:03 | P.PN ---
Subjective Progress Note Date: 01/31/24 Patient is a 58-year-old male with past medical history significant for hypertension, hyperlipidemia, COPD, current ongoing tobacco dependence, bipolar, schizophrenia. His primary care provider is Dr. Cabrera. Patient presented to the ED last night reportedly for a medication refill. He has ran out of his home medications. He states that he had walked to the emergency room. He states that he lives in an apartment. He has poor hygeine and is disheveled. On arrival, he was found to be tachycardic. He was having some shortness of breath with chest tightness. He has had a congested cough with white sputum production. Subjective fevers and intermittent chills. Chest pain when coughing. Chest x-ray showing bibasilar infiltrates concerning for pneumonia. Elevated D-dimer on arrival preempting chest CT angio protocol which did not show any evidence of filling defects consistent with pulmonary embolism. It did show bibasilar airspace opacities concerning for pneumonia. CBC: WBC count 16.1, hemoglobin 13.8, hematocrit 40.5, platelets 219. CMP: Sodium 127, potassium 3.3, chloride 195, serum bicarb 21, BUN 6, creatinine 0.7, Glu close 120. Lactic 1.1. Normal saline will be continued at 130 mL/h. LFTs unremarkable. Troponin less than 0.012. EKG: Sinus tachycardia, rate 120 bpm, no obvious acute ischemic changes. Urine toxicology screen negative. Serum alcohol level was 87. Patient admits to drinking 2, denies history of 24 ounce beers per day. Alcohol withdrawal symptoms, seizures, esophageal varices. Patient is currently being evaluated in the emergency department room 4. He was noted to be hypotensive. He is already received a total of 3 L of normal saline bolus. Despite this, remains hypotensive. Asked the nurse to start the patient on norepinephrine which is currently infusing at 0.13 mcg/kg/min. Current blood pressure is up to 91/60 mmHg. Heart rhythm sinus mechanism at 80 bpm. He is on room air, SpO2 94%. Covered on empiric antibiotics in the form of Rocephin and azithromycin. Afebrile. No apparent respiratory distress. Patient will may need to be transferred to the intensive care unit. On 01/31/2024, the patient is on room air oxygen. He continues to have some cough and congestion and limited shortness of breath. The patient has been taken off pressors as of midnight and the patient remains on normal citrate of 130 cc an hour. The sputum sample has been collected and the results are still pending. Meanwhile, the blood culture is not showing any microbial growth. The patient remains on a combination of Zosyn and Zithromax. No signs of any delirium tremens. Communicating. Mental status is appropriate. The white cell count of 13.9 with a hemoglobin of 11 and a platelet count of 221. The patient also has a sodium level of 137, bicarb of 17 with a chloride of 160. BUN is 6 with a creatinine of 0.5. The viral screen has been negative. Legionella urine antigen was also negative. Objective - Vital Signs Vital signs: Vital Signs Temp 98.1 F 01/31/24 08:00 Pulse 81 01/31/24 08:51 Resp 18 01/31/24 08:51 BP 105/54 01/31/24 08:00 Pulse Ox 95 01/31/24 08:00 FiO2 Intake & Output 01/30/24 01/31/24 01/31/24 18:59 06:59 18:59 Intake Total 2409.357 1701.952 260 Output Total 902 475 0 Balance 5820.996 5636.952 260 Weight 68.039 kg 61.6 kg Intake: IV 1170 1660 260 Piperacillin-Tazobactam 3 100 .375 gm In Sodium Chloride 0.9% 100 ml @ 25 mls/hr IVPB Q8HR [facility] Rx# :[id number] Sodium Chloride 0.9% 1, 1170 1560 260 000 ml @ 130 mls/hr IV . [facility]7H[facility] Rx#:[id number] Intake, IV Titration 1239.357 41.952 Amount Norepinephrine 4 mg In 239.357 41.952 Sodium Chloride 0.9% 250 ml @ 0.03 MCG/KG/MIN 7. 777 mls/hr IV .Q24H [facility] Rx#:[id number] Sodium Chloride 0.9% 1, 1000 000 ml @ 999 mls/hr IV . Q1H1M [facility] Rx#:[id number] Output: Urine 900 475 0 Stool 2 Other: Voiding Method Urinal Urinal Urinal # Voids 1 1 - Exam GENERAL EXAM: Alert, 58-year-old male, disheveled and poor hygiene, fairly comfortable in no apparent distress. HEAD: Normocephalic and atraumatic EYES: Normal reaction of pupils, equal size. NOSE: Clear with pink turbinates. THROAT: No erythema or exudates. NECK: No masses, no JVD. CHEST: No chest wall deformity. LUNGS: Equal air entry with diminished lung sounds bilaterally throughout. Scattered rhonchi. On room air. No conversational dyspnea or accessory muscle use. Has a persistent congested cough, nonproductive CVS: S1 and S2 normal with no audible murmur, regular rhythm. No extra heart sounds ABDOMEN: No hepatosplenomegaly, active bowel sounds, no guarding or rigidity. SPINE: No scoliosis or deformity SKIN: No rashes CENTRAL NERVOUS SYSTEM: No focal deficits, tone is normal in all 4 extremities. EXTREMITIES: There is no peripheral edema, clubbing, or cyanosis. Peripheral pulses are intact. - Labs CBC & Chem 7: 01/31/24 04:42 01/31/24 04:42 Labs: Abnormal Lab Results - Last 24 Hours (Table) 01/29/24 01/31/24 01/31/24 Range/Units 22:14 04:42 04:42 WBC 13.9 H (3.8-10.6) k/uL RBC 3.26 L (4.30-5.90) m/uL Hgb 11.0 L (13.0-17.5) gm/dL Hct 33.2 L (39.0-53.0) % MCV 101.9 H (80.0-100.0) fL Neutrophils # 12.0 H (1.3-7.7) k/uL Chloride 115 H (98-107) mmol/L Carbon Dioxide 17 L (22-30) mmol/L BUN 6 L (9-20) mg/dL Creatinine 0.54 L (0.66-1.25) mg/dL Glucose 225 H (74-99) mg/dL Calcium 8.0 L (8.4-10.2) mg/dL Urine Protein Trace H (Negative) Urine Ketones 1+ H (Negative) Assessment and Plan Assessment: Bibasilar community-acquired pneumonia and sepsis, chest CT angio protocol which did not show any evidence of filling defects consistent with pulmonary embolism. It did show bibasilar airspace opacities concerning for pneumonia. Consider aspiration pneumonia and the patient remains on a combination of Zosyn and Zithromax. Hypotension and septic shock, resuscitated with IV fluids and the patient is currently normotensive and pressors have been discontinued as of midnight. Acute COPD exacerbation, secondary to pneumonia Current ongoing tobacco dependence, currently smokes 2 packs/day Acute leukocytosis Hyponatremia, hypovolemic, possible beer potomania Hypokalemia, replace per protocol Alcohol intoxication, serum alcohol level was 87 on arrival, no signs of any delirium tremens History of hypertension History of hyperlipidemia History of bipolar History of schizophrenia Plan: Patient is currently on room air oxygen Discontinue IV fluids and the patient is already taking oral fluids and advancing his food intake IV fluids to KVO Monitor serum bicarb Blood culture has been negative Viral screen and Legionella urine antigens were negative Continue bronchodilators Continue Symbicort Continue IV Solu-Medrol Monitor the CIWA scale and treat accordingly The patient can be transferred to the medical floor Awaiting sputum Gram stain and cultures Will continue to follow
[2024-01-31] MEDS: LORazepam 2 MG/ML INJ IV PRN (19:54)
--- NOTE | 2024-01-31 22:32 | PN ---
PROGRESS NOTE DATE OF SERVICE: 01/31/2024 CHIEF COMPLAINT: Bronchopneumonia, chronic obstructive pulmonary disease, and alcoholism. HISTORY OF PRESENT ILLNESS: This gentleman is doing slightly better. Respirations are improving and temperature is down. PHYSICAL EXAMINATION: LUNGS: Breath sounds are still diminishing due to COPD. CARDIAC: Normal. IMPRESSION: 1. Bilateral bronchopneumonia. 2. Chronic obstructive pulmonary disease. 3. Chronic alcoholism. PLAN: Continue with pulmonary management and he can be transferred to step down unit. MMAUBREEL / IJN: [id number] /
[2024-01-31] MEDS: ACETAMINOPHEN TAB 325 MG TAB PO PRN (23:58)
[2024-02-01 03:50] LABS: Basophils % (A) 0 %; Eosinophils % (A) 0 %; HCT 34.5 % (39.0-53.0); HGB 11.2 gm/dL (13.0-17.5); Lymphocytes # (A) 1.3 k/uL (1.0-4.8); Lymphocytes % (A) 8 %; MCHC 32.5 g/dL (31.0-37.0); MCV 101.5 fL (80.0-100.0); Mean Platelet Volume 7.8; Monocytes # (A) 0.9 k/uL (0-1.0); Monocytes % (A) 5 %; Neutrophils # (A) 13.7 k/uL (1.3-7.7); Neutrophils % (A) 84 %; Platelet Count 315 k/uL (150-450); WBC 16.3 k/uL (3.8-10.6)
[2024-02-01 04:01] LABS: African American GFR (CKD) >90 (>60 ml/min/1.73 sqM); Anion Gap 7 mmol/L; Blood Urea Nitrogen 11 mg/dL (9-20); Calcium 8.9 mg/dL (8.4-10.2); Carbon Dioxide 20 mmol/L (22-30); Chloride 112 mmol/L (98-107); Glucose 201 mg/dL (74-99); Non-African American GFR(CKD) >90 (>60 ml/min/1.73 sqM); Potassium 4.2 mmol/L (3.5-5.1); Sodium 139 mmol/L (137-145)
--- NOTE | 2024-02-01 15:18 | P.PN ---
Subjective Progress Note Date: 02/01/24 Patient is a 58-year-old male with past medical history significant for hypertension, hyperlipidemia, COPD, current ongoing tobacco dependence, bipolar, schizophrenia. His primary care provider is Dr. Cabrera. Patient presented to the ED last night reportedly for a medication refill. He has ran out of his home medications. He states that he had walked to the emergency room. He states that he lives in an apartment. He has poor hygeine and is disheveled. On arrival, he was found to be tachycardic. He was having some shortness of breath with chest tightness. He has had a congested cough with white sputum production. Subjective fevers and intermittent chills. Chest pain when coughing. Chest x-ray showing bibasilar infiltrates concerning for pneumonia. Elevated D-dimer on arrival preempting chest CT angio protocol which did not show any evidence of filling defects consistent with pulmonary embolism. It did show bibasilar airspace opacities concerning for pneumonia. CBC: WBC count 16.1, hemoglobin 13.8, hematocrit 40.5, platelets 219. CMP: Sodium 127, potassium 3.3, chloride 195, serum bicarb 21, BUN 6, creatinine 0.7, Glu close 120. Lactic 1.1. Normal saline will be continued at 130 mL/h. LFTs unremarkable. Troponin less than 0.012. EKG: Sinus tachycardia, rate 120 bpm, no obvious acute ischemic changes. Urine toxicology screen negative. Serum alcohol level was 87. Patient admits to drinking 2, denies history of 24 ounce beers per day. Alcohol withdrawal symptoms, seizures, esophageal varices. Patient is currently being evaluated in the emergency department room 4. He was noted to be hypotensive. He is already received a total of 3 L of normal saline bolus. Despite this, remains hypotensive. Asked the nurse to start the patient on norepinephrine which is currently infusing at 0.13 mcg/kg/min. Current blood pressure is up to 91/60 mmHg. Heart rhythm sinus mechanism at 80 bpm. He is on room air, SpO2 94%. Covered on empiric antibiotics in the form of Rocephin and azithromycin. Afebrile. No apparent respiratory distress. Patient will may need to be transferred to the intensive care unit. On 01/31/2024, the patient is on room air oxygen. He continues to have some cough and congestion and limited shortness of breath. The patient has been taken off pressors as of midnight and the patient remains on normal citrate of 130 cc an hour. The sputum sample has been collected and the results are still pending. Meanwhile, the blood culture is not showing any microbial growth. The patient remains on a combination of Zosyn and Zithromax. No signs of any delirium tremens. Communicating. Mental status is appropriate. The white cell count of 13.9 with a hemoglobin of 11 and a platelet count of 221. The patient also has a sodium level of 137, bicarb of 17 with a chloride of 160. BUN is 6 with a creatinine of 0.5. The viral screen has been negative. Legionella urine antigen was also negative. On 02/01/2024, the patient is being seen for a follow-up. The patient is currently on room air oxygen. He got transferred out of the intensive care unit. He is on no pressors for now. He continues to be on a combination of Zosyn and Zithromax. He remains on DuoNeb nebulized treatments [id number]. He is also on IV Solu-Medrol. No significant cough or sputum production. White cell count is 16 with a hemoglobin 11.2 and a platelet count of 315. BUN is 11 with a creatinine of 0.6 and sodium levels at 139. No other significant events. He is quite debilitated and weak. Objective - Vital Signs Vital signs: Vital Signs Temp 98.4 F 02/01/24 07:09 Pulse 59 L 02/01/24 07:09 Resp 18 02/01/24 08:30 BP 134/81 02/01/24 07:09 Pulse Ox 94 L 02/01/24 07:09 FiO2 Intake & Output 01/31/24 02/01/24 02/01/24 18:59 06:59 18:59 Intake Total 960 Output Total 2 1 Balance 958 -1 Weight 61.6 kg Intake: IV 620 Piperacillin-Tazobactam 3 100 .375 gm In Sodium Chloride 0.9% 100 ml @ 25 mls/hr IVPB Q8HR [facility] Rx# :[id number] Sodium Chloride 0.9% 1, 520 000 ml @ 130 mls/hr IV . Q7H42M [facility] Rx#:[id number] Intake, IV Titration 100 Amount Piperacillin-Tazobactam 3 100 .375 gm In Sodium Chloride 0.9% 100 ml @ 25 mls/hr IVPB Q8HR [facility] Rx# :[id number] Oral 240 Output: Urine 2 Stool 1 Other: Voiding Method Urinal Urinal Urinal # Voids 1 2 # Bowel Movements 1 - Exam GENERAL EXAM: Alert, 58-year-old male, disheveled and poor hygiene, fairly comfortable in no apparent distress. HEAD: Normocephalic and atraumatic EYES: Normal reaction of pupils, equal size. NOSE: Clear with pink turbinates. THROAT: No erythema or exudates. NECK: No masses, no JVD. CHEST: No chest wall deformity. LUNGS: Equal air entry with diminished lung sounds bilaterally throughout. Scattered rhonchi. On room air. No conversational dyspnea or accessory muscle use. Has a persistent congested cough, nonproductive CVS: S1 and S2 normal with no audible murmur, regular rhythm. No extra heart sounds ABDOMEN: No hepatosplenomegaly, active bowel sounds, no guarding or rigidity. SPINE: No scoliosis or deformity SKIN: No rashes CENTRAL NERVOUS SYSTEM: No focal deficits, tone is normal in all 4 extremities. EXTREMITIES: There is no peripheral edema, clubbing, or cyanosis. Peripheral pulses are intact. - Labs CBC & Chem 7: 02/01/24 03:09 02/01/24 03:09 Labs: Abnormal Lab Results - Last 24 Hours (Table) 02/01/24 02/01/24 Range/Units 03:09 03:09 WBC 16.3 H (3.8-10.6) k/uL RBC 3.40 L (4.30-5.90) m/uL Hgb 11.2 L (13.0-17.5) gm/dL Hct 34.5 L (39.0-53.0) % MCV 101.5 H (80.0-100.0) fL Neutrophils # 13.7 H (1.3-7.7) k/uL Chloride 112 H (98-107) mmol/L Carbon Dioxide 20 L (22-30) mmol/L Creatinine 0.62 L (0.66-1.25) mg/dL Glucose 201 H (74-99) mg/dL Microbiology - Last 24 Hours (Table) 01/30/24 01:55 Blood Culture - Preliminary Blood Assessment and Plan Assessment: Bibasilar community-acquired pneumonia and sepsis, chest CT angio protocol which did not show any evidence of filling defects consistent with pulmonary embolism. It did show bibasilar airspace opacities concerning for pneumonia. Consider aspiration pneumonia and the patient remains on a combination of Zosyn and Zithromax. The patient remains on room air oxygen. No signs of any significant respiratory distress Hypotension and septic shock, recovered Acute COPD exacerbation, secondary to pneumonia, improving Current ongoing tobacco dependence, currently smokes 2 packs/day Acute leukocytosis Hyponatremia, hypovolemic, possible beer potomania Hypokalemia, replace per protocol Alcohol intoxication, serum alcohol level was 87 on arrival, no signs of any delirium tremens History of hypertension History of hyperlipidemia History of bipolar History of schizophrenia Plan: Patient is currently on room air oxygen advancing his food intake IV fluids to KVO Blood culture has been negative Viral screen and Legionella urine antigens were negative Continue bronchodilators Continue Symbicort Continue IV Solu-Medrol Monitor the CIWA scale and treat accordingly The patie is currently on the medical floor and transferred out of the intensive care unit PT evaluation Will continue to follow
--- NOTE | 2024-02-02 14:26 | P.PN ---
Subjective Progress Note Date: 02/02/24 Patient is a 58-year-old male with past medical history significant for hypertension, hyperlipidemia, COPD, current ongoing tobacco dependence, bipolar, schizophrenia. His primary care provider is Dr. Cabrera. Patient presented to the ED last night reportedly for a medication refill. He has ran out of his home medications. He states that he had walked to the emergency room. He states that he lives in an apartment. He has poor hygeine and is disheveled. On arrival, he was found to be tachycardic. He was having some shortness of breath with chest tightness. He has had a congested cough with white sputum production. Subjective fevers and intermittent chills. Chest pain when coughing. Chest x-ray showing bibasilar infiltrates concerning for pneumonia. Elevated D-dimer on arrival preempting chest CT angio protocol which did not show any evidence of filling defects consistent with pulmonary embolism. It did show bibasilar airspace opacities concerning for pneumonia. CBC: WBC count 16.1, hemoglobin 13.8, hematocrit 40.5, platelets 219. CMP: Sodium 127, potassium 3.3, chloride 195, serum bicarb 21, BUN 6, creatinine 0.7, Glu close 120. Lactic 1.1. Normal saline will be continued at 130 mL/h. LFTs unremarkable. Troponin less than 0.012. EKG: Sinus tachycardia, rate 120 bpm, no obvious acute ischemic changes. Urine toxicology screen negative. Serum alcohol level was 87. Patient admits to drinking 2, denies history of 24 ounce beers per day. Alcohol withdrawal symptoms, seizures, esophageal varices. Patient is currently being evaluated in the emergency department room 4. He was noted to be hypotensive. He is already received a total of 3 L of normal saline bolus. Despite this, remains hypotensive. Asked the nurse to start the patient on norepinephrine which is currently infusing at 0.13 mcg/kg/min. Current blood pressure is up to 91/60 mmHg. Heart rhythm sinus mechanism at 80 bpm. He is on room air, SpO2 94%. Covered on empiric antibiotics in the form of Rocephin and azithromycin. Afebrile. No apparent respiratory distress. Patient will may need to be transferred to the intensive care unit. On 01/31/2024, the patient is on room air oxygen. He continues to have some cough and congestion and limited shortness of breath. The patient has been taken off pressors as of midnight and the patient remains on normal citrate of 130 cc an hour. The sputum sample has been collected and the results are still pending. Meanwhile, the blood culture is not showing any microbial growth. The patient remains on a combination of Zosyn and Zithromax. No signs of any delirium tremens. Communicating. Mental status is appropriate. The white cell count of 13.9 with a hemoglobin of 11 and a platelet count of 221. The patient also has a sodium level of 137, bicarb of 17 with a chloride of 160. BUN is 6 with a creatinine of 0.5. The viral screen has been negative. Legionella urine antigen was also negative. On 02/01/2024, the patient is being seen for a follow-up. The patient is currently on room air oxygen. He got transferred out of the intensive care unit. He is on no pressors for now. He continues to be on a combination of Zosyn and Zithromax. He remains on DuoNeb nebulized treatments [id number]. He is also on IV Solu-Medrol. No significant cough or sputum production. White cell count is 16 with a hemoglobin 11.2 and a platelet count of 315. BUN is 11 with a creatinine of 0.6 and sodium levels at 139. No other significant events. He is quite debilitated and weak. On 02/02/2024, the patient is being seen for a follow-up. Resting comfortably bed on room air oxygen. Remains on Zosyn and Zithromax. No hemodynamic instability. Limited cough. No significant sputum production. No signs of any delirium tremens. The white cell count of 16 with a hemoglobin 11 and a platelet count of 315. Bicarb is at 20 and a sodium levels at 139. Oral intake is quite diminished at this point in time. Objective - Vital Signs Vital signs: Vital Signs Temp 98.1 F 02/02/24 08:00 Pulse 61 02/02/24 08:55 Resp 18 02/02/24 08:55 BP 132/69 02/02/24 08:00 Pulse Ox 94 L 02/02/24 08:00 FiO2 Intake & Output 02/01/24 02/02/24 02/02/24 18:59 06:59 18:59 Output Total 1 1 Balance -1 -1 Output: Urine 1 Stool 1 Other: Voiding Method Urinal Toilet # Voids 3 1 1 # Bowel Movements 1 1 - Exam GENERAL EXAM: Alert, 58-year-old male, disheveled and poor hygiene, fairly comfortable in no apparent distress. HEAD: Normocephalic and atraumatic EYES: Normal reaction of pupils, equal size. NOSE: Clear with pink turbinates. THROAT: No erythema or exudates. NECK: No masses, no JVD. CHEST: No chest wall deformity. LUNGS: Equal air entry with diminished lung sounds bilaterally throughout. Scattered rhonchi. On room air. No conversational dyspnea or accessory muscle use. Has a persistent congested cough, nonproductive CVS: S1 and S2 normal with no audible murmur, regular rhythm. No extra heart sounds ABDOMEN: No hepatosplenomegaly, active bowel sounds, no guarding or rigidity. SPINE: No scoliosis or deformity SKIN: No rashes CENTRAL NERVOUS SYSTEM: No focal deficits, tone is normal in all 4 extremities. EXTREMITIES: There is no peripheral edema, clubbing, or cyanosis. Peripheral pulses are intact. - Labs CBC & Chem 7: 02/01/24 03:09 02/01/24 03:09 Labs: Microbiology - Last 24 Hours (Table) 01/30/24 01:55 Blood Culture - Preliminary Blood Assessment and Plan Assessment: Bibasilar community-acquired pneumonia and sepsis, chest CT angio protocol which did not show any evidence of filling defects consistent with pulmonary embolism. It did show bibasilar airspace opacities concerning for pneumonia. Consider aspiration pneumonia and the patient remains on a combination of Zosyn and Zithromax. The patient remains on room air oxygen. No signs of any significant respiratory distress Hypotension and septic shock, recovered Acute COPD exacerbation, secondary to pneumonia, improving Current ongoing tobacco dependence, currently smokes 2 packs/day Acute leukocytosis Hyponatremia, hypovolemic, possible beer potomania Hypokalemia, replace per protocol Alcohol intoxication, serum alcohol level was 87 on arrival, no signs of any delirium tremens History of hypertension History of hyperlipidemia History of bipolar History of schizophrenia Plan: Patient is currently on room air oxygen advancing his food intake IV fluids to KVO Blood culture has been negative Viral screen and Legionella urine antigens were negative Continue bronchodilators Continue Symbicort Continue IV Solu-Medrol and switch this patient to prednisone burst taper as of tomorrow. Monitor the CIWA scale and treat accordingly PT evaluation Will continue to follow
[2024-02-03 08:01] VITALS: BP 172/88; PULSE 59; RESP 18; TEMP 97.7
--- NOTE | 2024-02-03 08:34 | PN ---
PROGRESS NOTE DATE OF SERVICE: 02/01/2024 CHIEF COMPLAINT: DTs. HISTORY OF PRESENT ILLNESS: Became uncontrollable last night. Medication program has been stepped up. At present time, he is quite lethargic. PHYSICAL EXAMINATION: VITAL SIGNS: Normal. GENERAL: He is arousable. CHEST: Clear. CARDIAC: Exam is normal. ABDOMEN: Soft, nontender. IMPRESSION: 1. Acute alcohol intoxication. 2. Delirium tremens. 3. Chronic obstructive pulmonary disease. PLAN: Continue to follow with [facility] protocol. MMODL / IJN: [id number] /
--- NOTE | 2024-02-03 11:58 | PN ---
PROGRESS NOTE DATE OF SERVICE: 02/02/2024 CHIEF COMPLAINT: Pneumonitis, alcoholism, DTs, and COPD. HISTORY OF PRESENT ILLNESS: This gentleman is doing fairly well and he started to be more awake and alert. PHYSICAL EXAMINATION: LUNGS: Breath sounds are decreased throughout with scattered rales and occasional rhonchi. CARDIAC: Normal. IMPRESSION: 1. Bilateral bronchopneumonia. 2. Chronic obstructive pulmonary disease. 3. Chronic alcoholism. 4. Delirium tremens. PLAN: Continue to manage his DTs and he can probably go home soon. MMODL / IJN: [id number] /
--- NOTE | 2024-02-03 12:22 | PN ---
PROGRESS NOTE DATE OF SERVICE: 02/03/2024 CHIEF COMPLAINT: COPD, pneumonitis, and DTs. HISTORY OF PRESENT ILLNESS: This gentleman continues to improve. PHYSICAL EXAMINATION: LUNGS: Breath sounds are diminished. CARDIAC: Normal. IMPRESSION: 1. Pneumonitis. 2. Chronic obstructive pulmonary disease. 3. Chronic alcoholism. 4. Delirium Tremens. PLAN: Progress activity and diet and probably home tomorrow. MMODL / IJN: [id number] /
--- NOTE | 2024-02-03 21:25 | DS ---
DISCHARGE SUMMARY CHIEF COMPLAINT: Acute alcohol intoxication and pneumonitis. HISTORY OF PRESENT ILLNESS AND PHYSICAL EXAMINATION: Details of this man's history and physical can be found in the initial workup. LABORATORY STUDIES: While he was in the hospital, he had laboratory studies, details of which can be found in the laboratory section of his chart. COURSE IN THE HOSPITAL: After admission, he was placed on bedrest, started on intravenous fluids, updrafts, and IV antibiotics. He was slowly improving and becoming more alert from his alcohol intoxication and then went into DTs. This lasted for several days. He was improving and his chest was clearing and then he signed out against medical advice on the . FINAL DIAGNOSES: 1. Acute alcohol intoxication. 2. Bronchial pneumonia. 3. Delirium tremens. 4. Chronic obstructive pulmonary disease. 5. Schizophrenia. OPERATIONS: None. CONSULTATIONS: Pulmonology. He is improved. SHIRLEY / DEL: [id number] /
== END 2024-02-03 10:55 | disposition left against medical advice (07) | DRG 720 ==
LOC: EC 20:39 → 3SCARD 01-30 03:24 → 2SICU 01-30 05:26 → OBSVTOIN 01-30 07:27 → 2SICU 01-30 08:45 → 4SSUR 01-31 21:48
PROVIDERS: ADMIT Family Medicine; ATTEND Family Medicine
DX: A41.9 Sepsis, unspecified organism (principal); E78.5 Hyperlipidemia, unspecified; E86.1 Hypovolemia; E87.1 Hypo-osmolality and hyponatremia; E87.6 Hypokalemia; F10.229 Alcohol dependence with intoxication, unspecified; F10.231 Alcohol dependence with withdrawal delirium; F17.210 Nicotine dependence, cigarettes, uncomplicated; R65.21 Severe sepsis with septic shock; F20.9 Schizophrenia, unspecified; F31.9 Bipolar disorder, unspecified; I10 Essential (primary) hypertension; I85.00 Esophageal varices without bleeding; J18.0 Bronchopneumonia, unspecified organism; F41.9 Anxiety disorder, unspecified; J44.0 Chronic obstructive pulmonary disease with (acute) lower respiratory infection; J44.1 Chronic obstructive pulmonary disease with (acute) exacerbation; R56.9 Unspecified convulsions; Y90.4 Blood alcohol level of 80-99 mg/100 ml; Z53.29 Procedure and treatment not carried out because of patient's decision for other reasons; Z79.51 Long term (current) use of inhaled steroids; Z79.82 Long term (current) use of aspirin; Z79.899 Other long term (current) drug therapy; Z91.148 Patient's other noncompliance with medication regimen for other reason; Z71.3 Dietary counseling and surveillance; Z20.822 Contact with and (suspected) exposure to COVID-19; Z28.21 Immunization not carried out because of patient refusal
CPT/HCPCS: 36415; 71045; 71046; 71275; 80048; 80053; 80306; 80320; 81003; 83605; 83735; 84484; 85025; 85379; 85610; 85730; 87040; 87070; 87205; 87449; 87636; 93005; 94640; 96365; 96366; 96367; 96368; 96372; 96375; 99285

== ENCOUNTER 2024-02-05 23:57 | Emergency (ER) | payer OTHER ==
[2024-02-06 00:05] VITALS: RESP 18; TEMP 97.8
[2024-02-06 01:24] LABS: Basophils % (A) 0 %; Eosinophils # (A) 0.3 k/uL (0-0.7); Eosinophils % (A) 3 %; HCT 37.7 % (39.0-53.0); HGB 12.8 gm/dL (13.0-17.5); Lymphocytes % (A) 39 %; MCH 33.6 pg (25.0-35.0); MCHC 33.9 g/dL (31.0-37.0); MCV 99.1 fL (80.0-100.0); Mean Platelet Volume 7.5; Monocytes # (A) 0.7 k/uL (0-1.0); Monocytes % (A) 7 %; Neutrophils # (A) 5.1 k/uL (1.3-7.7); Neutrophils % (A) 49 %; Platelet Count 419 k/uL (150-450); RDW 12.7 % (11.5-15.5); WBC 10.4 k/uL (3.8-10.6)
[2024-02-06 01:34] LABS: ALT 51 U/L (4-49); AST 27 U/L (17-59); African American GFR (CKD) >90 (>60 ml/min/1.73 sqM); Albumin 3.1 g/dL (3.5-5.0); Alkaline Phosphatase 57 U/L (38-126); Anion Gap 1 mmol/L; Blood Urea Nitrogen 5 mg/dL (9-20); Calcium 8.5 mg/dL (8.4-10.2); Carbon Dioxide 30 mmol/L (22-30); Chloride 110 mmol/L (98-107); Glucose 84 mg/dL (74-99); Non-African American GFR(CKD) >90 (>60 ml/min/1.73 sqM); Potassium 3.8 mmol/L (3.5-5.1); Sodium 141 mmol/L (137-145); Total Bilirubin 0.2 mg/dL (0.2-1.3); Total Protein 5.8 g/dL (6.3-8.2)
[2024-02-06 01:55] LABS: Alcohol 111 mg/dL
--- NOTE | 2024-02-06 02:40 | ED ---
SOB HPI - General Chief Complaint: Shortness of Breath Stated Complaint: SOB Source: patient Mode of arrival: EMS - History of Present Illness Initial Comments: 58-year-old male presents emergency department with shortness of breath. Patient was just discharged from the hospital AGAINST MEDICAL ADVICE. He was diagnosed with alcohol intoxication and aspiration pneumonia. The patient was going through withdrawal symptoms in the hospital. He decided to leave. Returns stating that he is short of breath again. Patient found to be 98% on room air. Was not discharged home on any antibiotics. Does admit that he has been using his inhaler. Denies any chest pain. No lower extremity swelling. No history of DVT or PE. No cardiac disease. Patient denies to me that he is drinking again. No other alleviating, precipitating or modifying factors - Related Data Home Medications Medication Instructions Recorded Confirmed Aspirin EC [Ecotrin Low Dose] 81 mg PO DAILY 05/18/20 01/30/24 Budesonide/Formoterol Fumarate 2 puff INHALATION RT-BID 08/29/23 01/30/24 [Symbicort 160-4.5 Mcg Inhaler] Albuterol Sulfate [Albuterol 2 puff PO RT-Q6H PRN 01/30/24 01/30/24 Sulfate Hfa] Ergocalciferol (Vitamin D2) 1,250 mcg PO QMONTHLY 01/30/24 01/30/24 [Drisdol (50,000 Iu)] Previous Rx's Medication Instructions Recorded Atorvastatin [Lipitor] 40 mg PO DAILY #30 tablet 01/29/24 Thiothixene [Navane] 2 mg PO BID #60 cap 01/29/24 Trihexyphenidyl [Artane] 2 mg PO BID #60 tab 01/29/24 lisinopriL [Zestril] 20 mg PO DAILY #30 tab 01/29/24 Levofloxacin [Levaquin] 750 mg PO DAILY 1 Days #5 tab 02/06/24 Allergies Allergy/AdvReac Type Severity Reaction Status Date / Time haloperidol [From Haldol] Allergy Anaphylaxis Verified 02/06/24 00:05 Review of Systems ROS Statement: Those systems with pertinent positive or pertinent negative responses have been documented in the HPI. ROS Other: All systems not noted in ROS Statement are negative. Past Medical History Past Medical History: Hyperlipidemia, Hypertension Additional Past Medical History / Comment(s): anxiety and bipolar disorder, etoh since 2012 History of Any Multi-Drug Resistant Organisms: None Reported Past Surgical History: No Surgical Hx Reported Past Anesthesia/Blood Transfusion Reactions: No Reported Reaction Past Psychological History: Anxiety, Bipolar, Depression Smoking Status: Current every day smoker Past Alcohol Use History: Daily, Heavy Past Drug Use History: None Reported - Past Family History Mother Family Medical History: Myocardial Infarction ([place]) Additional Family Medical History / Comment(s): at age 54 Father History Unknown: Yes Family Medical History: Pneumonia Additional Family Medical History / Comment(s): at 71 from pneumonia General Exam General appearance: alert, in no apparent distress Head exam: Present: atraumatic, normocephalic, normal inspection Eye exam: Present: normal appearance, PERRL, EOMI. Absent: scleral icterus, conjunctival injection, periorbital swelling ENT exam: Present: normal exam, mucous membranes moist Neck exam: Present: normal inspection. Absent: tenderness, meningismus, lymphadenopathy Respiratory exam: Present: normal lung sounds bilaterally. Absent: respiratory distress, wheezes, rales, rhonchi, stridor Cardiovascular Exam: Present: regular rate, normal rhythm, normal heart sounds. Absent: systolic murmur, diastolic murmur, rubs, gallop, clicks GI/Abdominal exam: Present: soft, normal bowel sounds. Absent: distended, tenderness, guarding, rebound, rigid Extremities exam: Present: normal inspection, full ROM, normal capillary refill. Absent: tenderness, pedal edema, joint swelling, calf tenderness Back exam: Present: normal inspection Neurological exam: Present: alert, oriented X3, CN II-XII intact Psychiatric exam: Present: normal affect, normal mood Skin exam: Present: warm, dry, intact, normal color. Absent: rash Course Vital Signs 02/06/24 02/06/24 02/06/24 00:01 04:37 04:47 Temperature 97.8 F Pulse Rate 65 64 89 Respiratory 18 Rate Blood Pressure 104/70 O2 Sat by Pulse 98 Oximetry 02/06/24 05:06 Temperature Pulse Rate 88 Respiratory 18 Rate Blood Pressure 93/67 O2 Sat by Pulse 95 Oximetry Medical Decision Making - Medical Decision Making Was pt. sent in by a medical professional or institution (, PA, AIRLINE COUNTER AGENT, urgent care, hospital, or fpc...) When possible be specific @ -No Did you speak to anyone other than the patient for history (EMS, parent, family, police, friend...)? What history was obtained from this source @ -Spoke with EMS for history Did you review nursing and triage notes (agree or disagree)? Why? @ -I reviewed and agree with nursing and triage notes Were old charts reviewed (outside hosp., previous admission, EMS record, old EKG, old radiological studies, urgent care reports/EKG's, fpc records)? Report findings @ -I reviewed the discharge which was AGAINST MEDICAL ADVICE from 2 days ago Differential Diagnosis (chest pain, altered mental status, abdominal pain women, abdominal pain men, vaginal bleeding, weakness, fever, dyspnea, syncope, headache, dizziness, GI bleed, back pain, seizure, CVA, palpatations, mental health, musculoskeletal)? @ -Differential Dyspnea: Coronary syndrome, arrhythmia, tamponade, asthma, COPD, pulmonary embolism, pneumonia, pneumothorax, pulmonary effusion, anaphylaxis, diabetic ketoacidosis, flailed chest, pulmonary contusion, diaphragmatic rupture, anemia, neuromuscular, this is not meant to be an all-inclusive list. EKG interpreted by me (3pts min.). @ -Not done X-rays interpreted by me (1pt min.). @ -Yes and demonstrates no acute findings CT interpreted by me (1pt min.). @ -None done U/S interpreted by me (1pt. min.). @ -None done What testing was considered but not performed or refused? (CT, X-rays, U/S, labs)? Why? @ -None What meds were considered but not given or refused? Why? @ -None Did you discuss the management of the patient with other professionals (professionals i.e. , PA, AIRLINE COUNTER AGENT, lab, RT, psych nurse, social worker school, chain testing machine operator, teacher, traffic maintenance officer, trimming caser)? Give summary @ -No Was smoking cessation discussed for >3mins.? @ -No Was critical care preformed (if so, how long)? @ -No Were there social determinants of health that impacted care today? How? (Homelessness, low income, unemployed, alcoholism, drug addiction, transportation, low edu. Level, literacy, decrease access to med. care, halfway, rehab)? @ -Homelessness Was there de-escalation of care discussed even if they declined (Discuss DNR or withdrawal of care, Hospice)? DNR status @ -No What co-morbidities impacted this encounter? (DM, HTN, Smoking, COPD, CAD, Cancer, CVA, ARF, Chemo, Hep., AIDS, mental health diagnosis, sleep apnea, morbid obesity)? @ -Alcohol abuse Was patient admitted / discharged? Hospital course, mention meds given and route, prescriptions, significant lab abnormalities, going to OR and other pertinent info. @ -Upon arrival patient seen and evaluated in room 1. Thorough history and physical exam was performed. IV was established and laboratory studies are conducted. Chest x-ray was performed. Patient is slightly intoxicated. He is allowed to sober up for several hours. His oxygen is monitored and does not dip below 95%. At this time I do feel that the patient is stable for discharge. I will discharge him home on antibiotics as he is still reporting symptoms. He needs to follow-up with his doctor in 2 to 4 days and return for any new or worsening symptoms. Continue using his inhaler. Patient was agreeable plan was discharged home in stable condition Undiagnosed new problem with uncertain prognosis? @ -No Drug Therapy requiring intensive monitoring for toxicity (Heparin, Nitro, Insulin, Cardizem)? @ -No Were any procedures done? @ -No Diagnosis/symptom? @ -Acute cough, acute respiratory insufficiency, recent diagnosis of pneumonia, acute alcohol intoxication Acute, or Chronic, or Acute on Chronic? @ -Acute on chronic Uncomplicated (without systemic symptoms) or Complicated (systemic symptoms)? @ -Complicated Side effects of treatment? @ -No Exacerbation, Progression, or Severe Exacerbation? @ -No Poses a threat to life or bodily function? How? (Chest pain, [place], [place], pneumonia, PE, COPD, DKA, ARF, appy, cholecystitis, CVA, Diverticulitis, Homicidal, Suicidal, threat to staff... and all critical care pts) @ -No - Lab Data Result diagrams: 02/06/24 01:15 02/06/24 01:15 Lab Results 02/06/24 02/06/24 02/06/24 Range/Units 01:15 01:15 01:15 WBC 10.4 (3.8-10.6) k/uL RBC 3.80 L (4.30-5.90) m/uL Hgb 12.8 L (13.0-17.5) gm/dL Hct 37.7 L (39.0-53.0) % MCV 99.1 (80.0-100.0) fL MCH 33.6 (25.0-35.0) pg MCHC 33.9 (31.0-37.0) g/dL RDW 12.7 (11.5-15.5) % Plt Count 419 (150-450) k/uL MPV 7.5 Neutrophils % 49 % Lymphocytes % 39 % Monocytes % 7 % Eosinophils % 3 % Basophils % 0 % Neutrophils # 5.1 (1.3-7.7) k/uL Lymphocytes # 4.0 (1.0-4.8) k/uL Monocytes # 0.7 (0-1.0) k/uL Eosinophils # 0.3 (0-0.7) k/uL Basophils # 0.0 (0-0.2) k/uL Sodium 141 (137-145) mmol/L Potassium 3.8 (3.5-5.1) mmol/L Chloride 110 H (98-107) mmol/L Carbon Dioxide 30 (22-30) mmol/L Anion Gap 1 mmol/L BUN 5 L (9-20) mg/dL Creatinine 0.59 L (0.66-1.25) mg/dL Est GFR (CKD-EPI)AfAm >90 (>60 ml/min/1.73 sqM) Est GFR (CKD-EPI)NonAf >90 (>60 ml/min/1.73 sqM) Glucose 84 (74-99) mg/dL Plasma Lactic Acid Joshua 1.4 (0.7-2.0) mmol/L Calcium 8.5 (8.4-10.2) mg/dL Total Bilirubin 0.2 (0.2-1.3) mg/dL AST 27 (17-59) U/L ALT 51 H (4-49) U/L Alkaline Phosphatase 57 (38-126) U/L Troponin I (0.000-0.034) ng/mL Total Protein 5.8 L (6.3-8.2) g/dL Albumin 3.1 L (3.5-5.0) g/dL Serum Alcohol 111 mg/dL 02/06/24 Range/Units 01:15 WBC (3.8-10.6) k/uL RBC (4.30-5.90) m/uL Hgb (13.0-17.5) gm/dL Hct (39.0-53.0) % MCV (80.0-100.0) fL MCH (25.0-35.0) pg MCHC (31.0-37.0) g/dL RDW (11.5-15.5) % Plt Count (150-450) k/uL MPV Neutrophils % % Lymphocytes % % Monocytes % % Eosinophils % % Basophils % % Neutrophils # (1.3-7.7) k/uL Lymphocytes # (1.0-4.8) k/uL Monocytes # (0-1.0) k/uL Eosinophils # (0-0.7) k/uL Basophils # (0-0.2) k/uL Sodium (137-145) mmol/L Potassium (3.5-5.1) mmol/L Chloride (98-107) mmol/L Carbon Dioxide (22-30) mmol/L Anion Gap mmol/L BUN (9-20) mg/dL Creatinine (0.66-1.25) mg/dL Est GFR (CKD-EPI)AfAm (>60 ml/min/1.73 sqM) Est GFR (CKD-EPI)NonAf (>60 ml/min/1.73 sqM) Glucose (74-99) mg/dL Plasma Lactic Acid Joshua (0.7-2.0) mmol/L Calcium (8.4-10.2) mg/dL Total Bilirubin (0.2-1.3) mg/dL AST (17-59) U/L ALT (4-49) U/L Alkaline Phosphatase (38-126) U/L Troponin I <0.012 (0.000-0.034) ng/mL Total Protein (6.3-8.2) g/dL Albumin (3.5-5.0) g/dL Serum Alcohol mg/dL Disposition Clinical Impression: Cough Disposition: HOME SELF-CARE Condition: Stable Instructions (If sedation given, give patient instructions): Bacterial Pneumonia (ED) Additional Instructions: I have called additional antibiotics into the pharmacy. Take this course if you are having continued symptoms. Return for any new or worsening symptoms Prescriptions: Levofloxacin [Levaquin] 750 mg PO DAILY 1 Days #5 tab Is patient prescribed a controlled substance at d/c from ED?: No Referrals: None,Stated [Primary Care Provider] - 1-2 days Time of Disposition: 03:58
--- NOTE | 2024-02-06 04:10 | XR ---
EXAM: XR Chest, 2 Views CLINICAL HISTORY: ITS.REASON XR Reason: difficulty breathing TECHNIQUE: Frontal and lateral views of the chest. COMPARISON: No relevant prior studies available. FINDINGS: Lungs: No consolidation or mass. Pleural space: Trace right pleural effusion. Heart: cardiomegaly. Bones/joints: No acute findings. IMPRESSION: Trace right pleural effusion.
[2024-02-06] MEDS: IPRATROPIUM-ALBUTEROL 3 ML NEB INHALATION STA (04:37)
[2024-02-06] MEDS: LEVOFLOXACIN 750 MG TAB PO STA (05:05)
[2024-02-06 05:08] VITALS: BP 93/67; PULSE 88
== END 2024-02-06 05:10 | disposition home or self-care (01) ==
LOC: EC 23:57
DX: J18.9 Pneumonia, unspecified organism (principal); F10.129 Alcohol abuse with intoxication, unspecified; R06.89 Other abnormalities of breathing; F17.200 Nicotine dependence, unspecified, uncomplicated; Z88.8 Allergy status to other drugs, medicaments and biological substances; Y90.5 Blood alcohol level of 100-119 mg/100 ml
CPT/HCPCS: 36415; 94640; 93005; 80053; 83605; 84484; 85025; 71046; 99285; G0480; 80320

== ENCOUNTER 2024-05-22 22:08 | Emergency (ER) | payer OTHER ==
[2024-05-22 22:12] VITALS: TEMP 97.7
--- NOTE | 2024-05-22 22:48 | ED ---
Fall HPI - General Chief Complaint: Fall Stated Complaint: Fall, ETOH Time Seen by Provider: 05/22/24 22:13 Source: patient Mode of arrival: EMS - History of Present Illness Initial Comments: This patient is a 58-year-old man brought to have evaluation after a fall. The patient states that he had been drinking and then he lost his balance and fell. Patient states he thinks he briefly lost consciousness. He complains of moderate frontal headache. He also has some neck pain. The patient also was complaining of having facial laceration. He states that his last tetanus shot was approximately 1 year ago. He denies other injury MD Complaint: fall -: minutes(s) Fall From: standing When Fall Occurred: unsure Fall Witnessed: no Place Fall Occurred: street Loss of Consciousness: yes Prolonged Down Time?: no Symptoms Prior to Fall: none Location: head Severity: moderate Context: tripped/slipped Associated Symptoms: headache - Related Data Home Medications Medication Instructions Recorded Confirmed Aspirin EC [Ecotrin Low Dose] 81 mg PO DAILY 05/18/20 01/30/24 Budesonide/Formoterol Fumarate 2 puff INHALATION RT-BID 08/29/23 01/30/24 [Symbicort 160-4.5 Mcg Inhaler] Albuterol Sulfate [Albuterol 2 puff PO RT-Q6H PRN 01/30/24 01/30/24 Sulfate Hfa] Ergocalciferol (Vitamin D2) 1,250 mcg PO QMONTHLY 01/30/24 01/30/24 [Drisdol (50,000 Iu)] Previous Rx's Medication Instructions Recorded Atorvastatin [Lipitor] 40 mg PO DAILY #30 tablet 01/29/24 Thiothixene [Navane] 2 mg PO BID #60 cap 01/29/24 Trihexyphenidyl [Artane] 2 mg PO BID #60 tab 01/29/24 lisinopriL [Zestril] 20 mg PO DAILY #30 tab 01/29/24 Levofloxacin [Levaquin] 750 mg PO DAILY 1 Days #5 tab 02/06/24 Allergies Allergy/AdvReac Type Severity Reaction Status Date / Time haloperidol [From Haldol] Allergy Anaphylaxis Verified 05/28/24 23:46 Review of Systems ROS Statement: Those systems with pertinent positive or pertinent negative responses have been documented in the HPI. ROS Other: All systems not noted in ROS Statement are negative. Constitutional: Denies: fever, chills, weakness Eyes: Denies: eye pain, vision change ENT: Denies: epistaxis Respiratory: Denies: cough, dyspnea Cardiovascular: Denies: chest pain, palpitations Gastrointestinal: Denies: abdominal pain, vomiting, diarrhea Genitourinary: Denies: dysuria, frequency Musculoskeletal: Denies: back pain Skin: Reports: as per HPI, lesions (Facial laceration/abrasion). Denies: rash Neurological: Reports: headache. Denies: weakness, confusion Hematological/Lymphatic: Denies: easy bleeding Past Medical History Past Medical History: Hyperlipidemia, Hypertension Additional Past Medical History / Comment(s): anxiety and bipolar disorder, etoh since 2012 History of Any Multi-Drug Resistant Organisms: None Reported Past Surgical History: No Surgical Hx Reported Past Anesthesia/Blood Transfusion Reactions: No Reported Reaction Past Psychological History: Anxiety, Bipolar, Depression Smoking Status: Current every day smoker Past Alcohol Use History: Daily, Heavy Past Drug Use History: None Reported - Past Family History Mother Family Medical History: Myocardial Infarction ([place]) Additional Family Medical History / Comment(s): at age 54 Father History Unknown: Yes Family Medical History: Pneumonia Additional Family Medical History / Comment(s): at 71 from pneumonia General Exam Limitations: no limitations General appearance: alert, appears intoxicated Head exam: Present: normocephalic, other (Patient has facial abrasion and right brow laceration) Eye exam: Present: normal appearance, PERRL, EOMI, nystagmus. Absent: scleral icterus, conjunctival injection ENT exam: Present: normal oropharynx Neck exam: Present: normal inspection, tenderness, full ROM Respiratory exam: Present: wheezes. Absent: respiratory distress, rales, rhonchi, stridor, accessory muscle use Cardiovascular Exam: Present: regular rate, normal rhythm, normal heart sounds. Absent: systolic murmur, diastolic murmur, rubs, gallop GI/Abdominal exam: Present: soft. Absent: distended, tenderness, guarding, rebound, rigid, mass Extremities exam: Present: normal inspection, normal capillary refill. Absent: pedal edema, calf tenderness Back exam: Present: normal inspection. Absent: CVA tenderness (R), CVA tenderness (L) Neurological exam: Present: alert Skin exam: Present: warm, dry, intact, normal color. Absent: rash Course Vital Signs 05/22/24 05/23/24 22:10 04:57 Temperature 97.7 F Pulse Rate 102 H 87 Respiratory 17 16 Rate Blood Pressure 141/90 114/76 O2 Sat by Pulse 97 97 Oximetry Medical Decision Making - Medical Decision Making The patient had CT scan of the brain and cervical spine that I interpreted as negative for acute bony injury, negative for acute intracranial hemorrhage, mass effect or midline shift. Was pt. sent in by a medical professional or institution (, PA, ACUTE SPECIALIST, urgent care, hospital, or longterm...) When possible be specific @ -[No] Did you speak to anyone other than the patient for history (EMS, parent, family, police, friend...)? What history was obtained from this source @ -[No] Did you review nursing and triage notes (agree or disagree)? Why? @ -[I reviewed and agree with nursing and triage notes] Were old charts reviewed (outside hosp., previous admission, EMS record, old EKG, old radiological studies, urgent care reports/EKG's, longterm records)? Report findings @ -[No old charts were reviewed] Differential Diagnosis (chest pain, altered mental status, abdominal pain women, abdominal pain men, vaginal bleeding, weakness, fever, dyspnea, syncope, headache, dizziness, GI bleed, back pain, seizure, CVA, palpatations, mental health, musculoskeletal)? @ -[Differential Musculoskeletal Muscular strain, contusion, ligament sprain, fracture, arthritis, septic arthritis, bursitis, cellulitis, muscle spasm, nerve compression, DVT, arterial occlusion, herpes zoster, electrolyte abnormality, tumor.... This is not meant to be in all inclusive list EKG interpreted by me (3pts min.). @ -[As above] X-rays interpreted by me (1pt min.). @ -[None done] CT interpreted by me (1pt min.). @ -[Interpreted as above U/S interpreted by me (1pt. min.). @ -[None done] What testing was considered but not performed or refused? (CT, X-rays, U/S, labs)? Why? @ -[None] What meds were considered but not given or refused? Why? @ -[None] Did you discuss the management of the patient with other professionals (professionals i.e. , PA, ACUTE SPECIALIST, lab, RT, psych nurse, healthcare social worker, family practice md, teacher, parachute officer, complex case manager)? Give summary @ -[No] Was smoking cessation discussed for >3mins.? @ -[No] Was critical care preformed (if so, how long)? @ -[No] Were there social determinants of health that impacted care today? How? (Homelessness, low income, unemployed, alcoholism, drug addiction, transportation, low edu. Level, literacy, decrease access to med. care, penitentiary, rehab)? @ -[No] Was there de-escalation of care discussed even if they declined (Discuss DNR or withdrawal of care, Hospice)? DNR status @ -[No] What co-morbidities impacted this encounter? (DM, HTN, Smoking, COPD, CAD, Cancer, CVA, ARF, Chemo, Hep., AIDS, mental health diagnosis, sleep apnea, morbid obesity)? @ -[None] Was patient admitted / discharged? Hospital course, mention meds given and route, prescriptions, significant lab abnormalities, going to OR and other pertinent info. @ -[Patient is a 58-year-old man who does appear moderately intoxicated and did have ground-level fall. The patient is sent for CT scan given the degree of intoxication and unreliable examination. The CT not revealing severe injury. On reevaluation, the patient's suspected laceration are abrasions and not requiring repair. Undiagnosed new problem with uncertain prognosis? @ -[No] Drug Therapy requiring intensive monitoring for toxicity (Heparin, Nitro, Insulin, Cardizem)? @ -[No] Were any procedures done? @ -[No] Diagnosis/symptom? @ -[Acute fall injury Acute closed head injury Acute intoxication. Facial abrasion Acute, or Chronic, or Acute on Chronic? @ -[Acute Uncomplicated (without systemic symptoms) or Complicated (systemic symptoms)? @ -[Uncomplicated Side effects of treatment? @ -[No] Exacerbation, Progression, or Severe Exacerbation? @ -[No] Poses a threat to life or bodily function? How? (Chest pain, [place], [place], pneumonia, PE, COPD, DKA, ARF, appy, cholecystitis, CVA, Diverticulitis, Homicidal, Suicidal, threat to staff... and all critical care pts) @ -[No] All treatments are based on ideal body weight as in ED triage Disposition Clinical Impression: Fall, Alcohol intoxication Disposition: HOME SELF-CARE Condition: Good Instructions (If sedation given, give patient instructions): Head Injury (ED), Alcohol Intoxication (DC) Is patient prescribed a controlled substance at d/c from ED?: No Referrals: Alonzo Cabrera MD [Primary Care Provider] - 1-2 days
--- NOTE | 2024-05-23 01:59 | CT ---
EXAM: CT Head Without Intravenous Contrast CLINICAL HISTORY: FALL, ETOH+, PT HAS ABRASIONS AND LACS TO FOREHEAD AREA TECHNIQUE: Axial computed tomography images of the head/brain without intravenous contrast. CTDI is 45.3 mGy and DLP is 1062.4 mGy-cm. This CT exam was performed using one or more of the following dose reduction techniques: automated exposure control, adjustment of the mA and/or kV according to patient size, and/or use of iterative reconstruction technique. COMPARISON: Prior head CT from November 07, 2022. FINDINGS: Brain: Unremarkable. No hemorrhage. No significant white matter disease. No edema. Ventricles: Mild ventriculomegaly. Bones/joints: Her mount writes zygomatic arch fracture deformity. No acute fracture. Soft tissues: Mild soft tissue swelling over the right forehead and right lateral scalp with small hematoma. Sinuses: Chronic ethmoid, frontal and right maxillary sinusitis. No acute sinusitis. Mastoid air cells: Unremarkable as visualized. No mastoid effusion. IMPRESSION: No evidence of acute intracranial pathology. EXAM: CT Cervical Spine Without Intravenous Contrast CLINICAL HISTORY: FALL, ETOH+, PT HAS ABRASIONS AND LACS TO FOREHEAD AREA TECHNIQUE: Axial computed tomography images of the cervical spine without intravenous contrast. CTDI is 8.3 mGy and DLP is 235 mGy-cm. This CT exam was performed using one or more of the following dose reduction techniques: automated exposure control, adjustment of the mA and/or kV according to patient size, and/or use of iterative reconstruction technique. COMPARISON: Prior CT scan of the cervical spine from November 07, 2022. FINDINGS: Vertebrae: Unremarkable. No acute fracture. Discs/spinal canal/neural foramina: No acute findings. No spinal canal stenosis. Soft tissues: Unremarkable. IMPRESSION: No evidence of acute cervical spine pathology.
[2024-05-23 04:58] VITALS: BP 114/76; PULSE 87; RESP 16
== END 2024-05-23 06:26 | disposition home or self-care (01) ==
LOC: SUPCPDRO 22:08 → EC 22:08
DX: S01.111A Laceration without foreign body of right eyelid and periocular area, initial encounter (principal); F10.129 Alcohol abuse with intoxication, unspecified; F17.200 Nicotine dependence, unspecified, uncomplicated; Z88.8 Allergy status to other drugs, medicaments and biological substances; W01.0XXA Fall on same level from slipping, tripping and stumbling without subsequent striking against object, initial encounter
CPT/HCPCS: 70450; 72125; 99284

== ENCOUNTER 2024-05-28 23:39 | Emergency (ER) | payer OTHER ==
--- NOTE | 2024-05-29 00:33 | ED ---
Fall HPI - General Chief Complaint: Fall Stated Complaint: head laceration Time Seen by Provider: 05/28/24 23:41 Source: patient, police Mode of arrival: EMS - History of Present Illness Initial Comments: Patient is 58-year-old man who had ground-level fall striking head. Patient states due to drinking alcohol tonight. He denies loss consciousness. No change in vision. No epistaxis. No other injury MD Complaint: fall -: minutes(s) Fall From: standing When Fall Occurred: just prior to arrival Fall Witnessed: no Place Fall Occurred: street Loss of Consciousness: none Prolonged Down Time?: no Symptoms Prior to Fall: none Location: head, face Severity: moderate Context: alcohol use, other Associated Symptoms: headache - Related Data Home Medications Medication Instructions Recorded Confirmed Aspirin EC [Ecotrin Low Dose] 81 mg PO DAILY 05/18/20 01/30/24 Budesonide/Formoterol Fumarate 2 puff INHALATION RT-BID 08/29/23 01/30/24 [Symbicort 160-4.5 Mcg Inhaler] Albuterol Sulfate [Albuterol 2 puff PO RT-Q6H PRN 01/30/24 01/30/24 Sulfate Hfa] Ergocalciferol (Vitamin D2) 1,250 mcg PO QMONTHLY 01/30/24 01/30/24 [Drisdol (50,000 Iu)] Previous Rx's Medication Instructions Recorded Atorvastatin [Lipitor] 40 mg PO DAILY #30 tablet 01/29/24 Thiothixene [Navane] 2 mg PO BID #60 cap 01/29/24 Trihexyphenidyl [Artane] 2 mg PO BID #60 tab 01/29/24 lisinopriL [Zestril] 20 mg PO DAILY #30 tab 01/29/24 Levofloxacin [Levaquin] 750 mg PO DAILY 1 Days #5 tab 02/06/24 Allergies Allergy/AdvReac Type Severity Reaction Status Date / Time haloperidol [From Haldol] Allergy Anaphylaxis Verified 05/28/24 23:46 Review of Systems ROS Statement: Those systems with pertinent positive or pertinent negative responses have been documented in the HPI. ROS Other: All systems not noted in ROS Statement are negative. Constitutional: Denies: fever, weakness Eyes: Denies: eye pain, vision change ENT: Denies: ear pain, hearing loss, epistaxis Respiratory: Denies: cough, dyspnea Cardiovascular: Denies: chest pain, palpitations, edema, syncope Gastrointestinal: Denies: abdominal pain, vomiting, diarrhea Genitourinary: Denies: dysuria, hematuria Musculoskeletal: Denies: back pain Skin: Denies: rash Neurological: Reports: headache. Denies: weakness, numbness, confusion Hematological/Lymphatic: Denies: easy bleeding Past Medical History Past Medical History: Hyperlipidemia, Hypertension Additional Past Medical History / Comment(s): anxiety and bipolar disorder, etoh since 2012 History of Any Multi-Drug Resistant Organisms: None Reported Past Surgical History: No Surgical Hx Reported Past Anesthesia/Blood Transfusion Reactions: No Reported Reaction Past Psychological History: Anxiety, Bipolar, Depression Smoking Status: Current every day smoker Past Alcohol Use History: Daily, Heavy Past Drug Use History: None Reported - Past Family History Mother Family Medical History: Myocardial Infarction ([place]) Additional Family Medical History / Comment(s): at age 54 Father History Unknown: Yes Family Medical History: Pneumonia Additional Family Medical History / Comment(s): at 71 from pneumonia General Exam General appearance: alert, in no apparent distress Head exam: Present: normocephalic Eye exam: Present: normal appearance, PERRL, EOMI. Absent: scleral icterus, conjunctival injection ENT exam: Present: normal oropharynx Neck exam: Present: normal inspection. Absent: tenderness Respiratory exam: Present: normal lung sounds bilaterally. Absent: respiratory distress, wheezes, rales, rhonchi, stridor, chest wall tenderness, accessory muscle use Cardiovascular Exam: Present: regular rate, normal rhythm, normal heart sounds. Absent: systolic murmur, diastolic murmur, rubs, gallop GI/Abdominal exam: Present: soft. Absent: distended, tenderness, guarding, rebound, rigid, mass Extremities exam: Present: normal inspection, normal capillary refill. Absent: pedal edema, calf tenderness Back exam: Present: normal inspection. Absent: CVA tenderness (R), CVA tenderness (L), vertebral tenderness Neurological exam: Present: alert, CN II-XII intact. Absent: motor sensory deficit Skin exam: Present: warm, dry, intact, normal color. Absent: rash Course Vital Signs 05/28/24 05/29/24 05/29/24 23:42 02:18 06:32 Temperature 98.3 F 98.1 F Pulse Rate 104 H 107 H 94 Respiratory 18 18 16 Rate Blood Pressure 146/94 109/63 104/55 O2 Sat by Pulse 97 97 96 Oximetry Medical Decision Making - Medical Decision Making The patient had CT scan of the brain and cervical spine that I interpreted as negative for acute intracranial hemorrhage, negative for mass effect or midline shift. No bony injury. Was pt. sent in by a medical professional or institution (, PA, FILTER PRESS PUMPER, urgent care, hospital, or correction...) When possible be specific @ -[No] Did you speak to anyone other than the patient for history (EMS, parent, family, police, friend...)? What history was obtained from this source @ -[No] Did you review nursing and triage notes (agree or disagree)? Why? @ -[I reviewed and agree with nursing and triage notes] Were old charts reviewed (outside hosp., previous admission, EMS record, old EKG, old radiological studies, urgent care reports/EKG's, correction records)? Report findings @ -[No old charts were reviewed] Differential Diagnosis (chest pain, altered mental status, abdominal pain women, abdominal pain men, vaginal bleeding, weakness, fever, dyspnea, syncope, headache, dizziness, GI bleed, back pain, seizure, CVA, palpatations, mental health, musculoskeletal)? @ Differential Musculoskeletal Muscular strain, contusion, ligament sprain, fracture, arthritis, septic arthritis, bursitis, cellulitis, muscle spasm, nerve compression, DVT, arterial occlusion, herpes zoster, electrolyte abnormality, tumor.... This is not meant to be in all inclusive list EKG interpreted by me (3pts min.). @ -[As above] X-rays interpreted by me (1pt min.). @ -[None done] CT interpreted by me (1pt min.). @ -[The patient had CT scan I interpreted as above U/S interpreted by me (1pt. min.). @ -[None done] What testing was considered but not performed or refused? (CT, X-rays, U/S, labs)? Why? @ -[None] What meds were considered but not given or refused? Why? @ -[None] Did you discuss the management of the patient with other professionals (professionals i.e. , PA, FILTER PRESS PUMPER, lab, RT, psych nurse, health care social worker, office nurse practitioner, teacher, aoc airspace control officer, showcase maker)? Give summary @ -[No] Was smoking cessation discussed for >3mins.? @ -[No] Was critical care preformed (if so, how long)? @ -[No] Were there social determinants of health that impacted care today? How? (Homelessness, low income, unemployed, alcoholism, drug addiction, transportation, low edu. Level, literacy, decrease access to med. care, usp, rehab)? @ -[No] Was there de-escalation of care discussed even if they declined (Discuss DNR or withdrawal of care, Hospice)? DNR status @ -[No] What co-morbidities impacted this encounter? (DM, HTN, Smoking, COPD, CAD, Cancer, CVA, ARF, Chemo, Hep., AIDS, mental health diagnosis, sleep apnea, morbid obesity)? @ -Alcohol abuse Was patient admitted / discharged? Hospital course, mention meds given and route, prescriptions, significant lab abnormalities, going to OR and other pertinent info. @ -[Patient is a 58-year-old man here to have evaluation after ground-level fall. The patient does have abrasions and 1 superficial laceration to the right face but it is well-approximated and not requiring suture repair. Patient states tetanus immunization up-to-date. He did have CT scan not revealing evidence of intracranial hemorrhage. At this point stable to have discharge follow-up as needed Undiagnosed new problem with uncertain prognosis? @ -[No] Drug Therapy requiring intensive monitoring for toxicity (Heparin, Nitro, Insulin, Cardizem)? @ -[No] Were any procedures done? @ -[No] Diagnosis/symptom? @ -[Acute fall Scalp abrasion Acute, or Chronic, or Acute on Chronic? @ -[Acute Uncomplicated (without systemic symptoms) or Complicated (systemic symptoms)? @ -[Uncomplicated Side effects of treatment? @ -[No] Exacerbation, Progression, or Severe Exacerbation? @ -[No] Poses a threat to life or bodily function? How? (Chest pain, [place], [place], pneumonia, PE, COPD, DKA, ARF, appy, cholecystitis, CVA, Diverticulitis, Homicidal, Suicidal, threat to staff... and all critical care pts) @ -[No] All treatments are based on ideal body weight as in ED triage Disposition Clinical Impression: Fall Disposition: HOME SELF-CARE Condition: Good Instructions (If sedation given, give patient instructions): Head Injury (ED), Fall Prevention (ED) Is patient prescribed a controlled substance at d/c from ED?: No Referrals: None,Stated [Primary Care Provider] - 1-2 days
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
[2024-05-29 06:37] VITALS: BP 104/55; PULSE 94; RESP 16; TEMP 98.1
== END 2024-05-29 06:37 | disposition home or self-care (01) ==
LOC: EC 23:39
DX: S01.81XA Laceration without foreign body of other part of head, initial encounter (principal); F10.10 Alcohol abuse, uncomplicated; F17.200 Nicotine dependence, unspecified, uncomplicated; Z88.8 Allergy status to other drugs, medicaments and biological substances; W18.30XA Fall on same level, unspecified, initial encounter
CPT/HCPCS: 70450; 72125; 99285

== ENCOUNTER 2024-07-18 21:53 | Emergency (ER) | payer OTHER ==
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
[2024-07-18 22:00] VITALS: RESP 18
--- NOTE | 2024-07-19 00:06 | CT ---
EXAM: CT Head Without Intravenous Contrast CLINICAL HISTORY: ITS.REASON CT Reason: pain TECHNIQUE: Axial computed tomography images of the head/brain without intravenous contrast. CTDI is 45.2 mGy and DLP is 1185 mGy-cm. This CT exam was performed using one or more of the following dose reduction techniques: automated exposure control, adjustment of the mA and/or kV according to patient size, and/or use of iterative reconstruction technique. COMPARISON: No relevant prior studies available. FINDINGS: Brain: The [place]-white matter differentiation is maintained throughout. No acute intracranial hemorrhage. No midline shift or mass effect. Ventricles: The ventricles and sulci are commensurate with age. Bones/joints: Unremarkable. No acute fracture. Soft tissues: LEFT frontal scalp soft tissue swelling. Sinuses: Unremarkable as visualized. No acute sinusitis. Mastoid air cells: Unremarkable as visualized. No mastoid effusion. IMPRESSION: 1. No acute intracranial hemorrhage. No midline shift or mass effect. 2. LEFT frontal scalp soft tissue swelling. EXAM: CT Cervical Spine Without Intravenous Contrast CLINICAL HISTORY: ITS.REASON CT Reason: pain TECHNIQUE: Axial computed tomography images of the cervical spine without intravenous contrast. CTDI is 7.6 mGy and DLP is 251.3 mGy-cm. This CT exam was performed using one or more of the following dose reduction techniques: automated exposure control, adjustment of the mA and/or kV according to patient size, and/or use of iterative reconstruction technique. COMPARISON: No relevant prior studies available. FINDINGS: The vertebral body heights are maintained. The craniocervical junction is intact. The atlanto-dens interval is maintained. The dens is intact. There is no spondylolisthesis. Multilevel cervical spondylosis and degenerative disc disease. Straightening of the cervical lordosis. The unenhanced neck soft tissues are grossly unremarkable. The visualized lung apices are grossly clear. IMPRESSION: No acute fracture or subluxation of the cervical spine.
--- NOTE | 2024-07-19 00:19 | XR ---
EXAM: XR Chest, 1 View CLINICAL HISTORY: ITS.REASON XR Reason: pain TECHNIQUE: Frontal view of the chest. COMPARISON: No relevant prior studies available. FINDINGS: No acute intracranial hemorrhage. No midline shift or mass effect. The [place]-white matter differentiation is maintained throughout. Age-related cerebral volume loss. Periventricular and subcortical white matter hypoattenuation, consistent with chronic microangiopathy. The visualized orbits appear grossly unremarkable. LEFT frontal soft tissue swelling. The calvarium is intact. The visualized paranasal sinuses and mastoid air cells are grossly clear. IMPRESSION: No acute intracranial hemorrhage, midline shift, or mass effect. LEFT frontal soft tissue swelling.
--- NOTE | 2024-07-19 00:25 | XR ---
EXAM: XR Pelvis, 1 or 2 Views CLINICAL HISTORY: ITS.REASON XR Reason: pain TECHNIQUE: Frontal view of the pelvis. COMPARISON: No relevant prior studies available. FINDINGS: Bones/joints: Unremarkable. No acute fracture. No dislocation. Soft tissues: Unremarkable. IMPRESSION: No acute fracture.
[2024-07-19 00:44] VITALS: BP 122/72; PULSE 77; TEMP 98.1
== END 2024-07-19 00:43 | disposition home or self-care (01) ==
LOC: EC 21:53
DX: F10.129 Alcohol abuse with intoxication, unspecified (principal); F17.200 Nicotine dependence, unspecified, uncomplicated; Z88.8 Allergy status to other drugs, medicaments and biological substances; W19.XXXA Unspecified fall, initial encounter
CPT/HCPCS: 70450; 71045; 72125; 72170; 99284

== ENCOUNTER 2024-07-22 20:56 | Emergency (ER) | payer OTHER ==
[2024-07-22 21:09] VITALS: RESP 17; TEMP 97.5
--- NOTE | 2024-07-22 21:38 | ED ---
General Adult HPI - General Chief complaint: Alcohol Stated complaint: ETOH Time Seen by Provider: 07/22/24 21:07 Source: patient, EMS Mode of arrival: EMS Limitations: no limitations - History of Present Illness Initial comments: Dictation was produced using Gleam dictation software. please excuse any grammatical, word or spelling errors. Chief Complaint: 59-year-old male with public intoxication History of Present Illness: 59-year-old male with public intoxication was brought in after he was found to be drunk at the gas station. Patient complains of some abdominal pain offers requesting food. The ROS documented in this emergency department record has been reviewed and confirmed by me. Those systems with pertinent positive or negative responses have been documented in the HPI. All other systems are other negative and/or noncontributory. - Related Data Home Medications Medication Instructions Recorded Confirmed Aspirin EC [Ecotrin Low Dose] 81 mg PO DAILY 05/18/20 01/30/24 Budesonide/Formoterol Fumarate 2 puff INHALATION RT-BID 08/29/23 01/30/24 [Symbicort 160-4.5 Mcg Inhaler] Albuterol Sulfate [Albuterol 2 puff PO RT-Q6H PRN 01/30/24 01/30/24 Sulfate Hfa] Ergocalciferol (Vitamin D2) 1,250 mcg PO QMONTHLY 01/30/24 01/30/24 [Drisdol (50,000 Iu)] Previous Rx's Medication Instructions Recorded Atorvastatin [Lipitor] 40 mg PO DAILY #30 tablet 01/29/24 Thiothixene [Navane] 2 mg PO BID #60 cap 01/29/24 Trihexyphenidyl [Artane] 2 mg PO BID #60 tab 01/29/24 lisinopriL [Zestril] 20 mg PO DAILY #30 tab 01/29/24 Levofloxacin [Levaquin] 750 mg PO DAILY 1 Days #5 tab 02/06/24 Allergies Allergy/AdvReac Type Severity Reaction Status Date / Time haloperidol [From Haldol] Allergy Anaphylaxis Verified 07/18/24 22:00 Review of Systems ROS Statement: Those systems with pertinent positive or pertinent negative responses have been documented in the HPI. ROS Other: All systems not noted in ROS Statement are negative. Past Medical History Past Medical History: Hyperlipidemia, Hypertension Additional Past Medical History / Comment(s): anxiety and bipolar disorder, etoh since 2012 History of Any Multi-Drug Resistant Organisms: None Reported Past Surgical History: No Surgical Hx Reported Past Anesthesia/Blood Transfusion Reactions: No Reported Reaction Past Psychological History: Anxiety, Bipolar, Depression Smoking Status: Current every day smoker Past Alcohol Use History: Daily, Heavy Past Drug Use History: None Reported - Past Family History Mother Family Medical History: Myocardial Infarction ([place]) Additional Family Medical History / Comment(s): at age 54 Father History Unknown: Yes Family Medical History: Pneumonia Additional Family Medical History / Comment(s): at 71 from pneumonia General Exam - General Exam Comments Initial Comments: PHYSICAL EXAM: General Impression: Alert and oriented x3, not in acute distress HEENT: Normocephalic atraumatic, extra-ocular movements intact, pupils equal and reactive to light bilaterally, mucous membranes moist. Cardiovascular: Heart regular rate and rhythm Chest: Able to complete full sentences, no retractions, no tachypnea Abdomen: abdomen soft, non-tender, non-distended, no organomegaly Musculoskeletal: Pulses present and equal in all extremities, no peripheral edema Motor: no focal deficits noted Neurological: CN II-XII grossly intact, no focal motor or sensory deficits noted Skin: Intact with no visualized rashes Psych: Normal affect and mood Limitations: no limitations Course Vital Signs 07/22/24 07/23/24 21:06 00:24 Temperature 97.5 F L Pulse Rate 80 101 H Respiratory 17 17 Rate Blood Pressure 113/77 O2 Sat by Pulse 100 97 Oximetry - Reevaluation(s) Reevaluation #1: 07/23/24 01:28 Patient observed in the emergency department for approximately 4 hours and 30 minutes. Patient reevaluated at 1:30 AM clinically sober. Patient is ambulatory no acute distress tolerating oral intake. Patient discharged. Medical Decision Making - Medical Decision Making Was pt. sent in by a medical professional or institution (, PA, EXECUTIVE DIRECTOR OF NURSING, urgent care, hospital, or senior care...) When possible be specific @ -No Did you speak to anyone other than the patient for history (EMS, parent, family, police, friend...)? What history was obtained from this source @ -No Did you review nursing and triage notes (agree or disagree)? Why? @ -I reviewed and agree with nursing and triage notes Were old charts reviewed (outside hosp., previous admission, EMS record, old EKG, old radiological studies, urgent care reports/EKG's, senior care records)? Report findings @ -No old charts were reviewed Differential Diagnosis (chest pain, altered mental status, abdominal pain women, abdominal pain men, vaginal bleeding, musculoskeletal, weakness, fever, dyspnea, syncope, headache, dizziness, GI bleed, back pain, seizure, CVA, palpatations, mental health)? @ -Differential Abdominal Pain Men: Appendicitis, cholecystitis, diverticulosis, ischemic bowel, pancreatitis, hepatitis, UTI, gastroenteritis, AAA, incarcerated hernia, bowel obstruction, constipation, inflammatory bowel, hepatitis, peptic ulcer disease, splenic infarction, perforated viscus, testicular torsion, this is not meant to be an all-inclusive list EKG interpreted by me (3pts min.). @ -None done X-rays interpreted by me (1pt min.). @ -None done CT interpreted by me (1pt min.). @ -None done U/S interpreted by me (1pt. min.). @ -None done What testing was considered but not performed or refused? (CT, X-rays, U/S, labs)? Why? @ -None What meds were considered but not given or refused? Why? @ -None Was smoking cessation discussed for >3mins.? @ -No Were there social determinants of health that impacted care today? How? (Homelessness, low income, unemployed, alcoholism, drug addiction, transportation, low edu. Level, literacy, decrease access to med. care, skilled nursing, rehab)? @ -No Was there de-escalation of care discussed even if they declined (Discuss DNR or withdrawal of care, Hospice)? DNR status @ -No What co-morbidities impacted this encounter? (DM, HTN, Smoking, COPD, CAD, Cancer, CVA, ARF, Chemo, Hep., AIDS, mental health diagnosis, sleep apnea, morbid obesity)? @ -None Was patient admitted / discharged? Hospital course, mention meds given and route, prescriptions, significant lab abnormalities, going to OR and other pertinent info. @ -9-year-old 59-year-old alcoholic male presents to the emergency department for alcohol intoxication. Patient complains of abdominal pain however well- appearing with benign abdomen and requesting food. Vital signs stable. Patient observed emergency department till clinically sober at 1:30 AM. Patient is an alcoholic. Patient stable for discharge. At time of discharge patient nonacute distress ambulatory at baseline and tolerating oral intake Did you discuss the management of the patient with other professionals (professionals i.e. , PA, EXECUTIVE DIRECTOR OF NURSING, lab, RT, psych nurse, mental health social worker, medical records manager, teacher, parcel post officer, porter sample case)? Give summary @ -No Was critical care preformed (if so, how long)? @ -No Undiagnosed new problem with uncertain prognosis? @ -No Drug Therapy requiring intensive monitoring for toxicity (Heparin, Nitro, Insulin, Cardizem)? @ -No Were any procedures done? @ -No Diagnosis/symptom? Acute, or Chronic, or Acute on Chronic? Uncomplicated (without systemic symptoms) or Complicated (systemic symptoms)? @ -Intoxication of alcohol Side effects of treatment? @ -No Exacerbation, Progression, or Severe Exacerbation? @ -No Poses a threat to life or bodily function? How? (Chest pain, [place], [place], pneumonia, PE, COPD, DKA, ARF, appy, cholecystitis, CVA, Diverticulitis, Homicidal, Suicidal, threat to staff... and all critical care pts) @ -No - Lab Data Result diagrams: 07/22/24 22:00 07/22/24 22:00 Lab Results 07/22/24 07/22/24 07/22/24 Range/Units 22:00 22:00 22:00 WBC 9.79 (4.50-10.00) 10*3/uL RBC 4.24 L (4.40-5.60) 10*6/uL Hgb 14.2 (13.0-17.0) g/dL Hct 40.2 (39.6-50.0) % MCV 94.8 (80.0-97.0) fL MCH 33.5 H (27.0-32.0) pg MCHC 35.3 (32.0-37.0) g/dL Plt Count 298 (140-440) 10*3/uL MPV 9.5 (9.5-12.2) fL Immature Gran % (Auto) 0.2 % Neutrophils % 38.9 % Lymphocytes % 47.5 % Monocytes % 9.7 % Eosinophils % 2.3 % Basophils % 1.4 % Immature Gran # 0.02 (0.00-0.04) 10*3/uL Neutrophils # 3.80 (1.80-7.70) 10*3/uL Lymphocytes # 4.65 (0.90-5.00) 10*3/uL Monocytes # 0.95 (0.20-1.00) 10*3/uL Eosinophils # 0.23 (0.04-0.35) 10*3/uL Basophils # 0.14 H (0.00-0.10) 10*3/uL Manual Slide Review Performed Sodium 136 L (137-145) mmol/L Potassium 4.1 (3.5-5.1) mmol/L Chloride 96 L (98-107) mmol/L Carbon Dioxide 28 (22-30) mmol/L Anion Gap 12 mmol/L BUN 5 L (9-20) mg/dL Creatinine 0.62 L (0.66-1.25) mg/dL Est GFR (CKD-EPI)AfAm >90 (>60 ml/min/1.73 sqM) Est GFR (CKD-EPI)NonAf >90 (>60 ml/min/1.73 sqM) Glucose 92 (74-99) mg/dL Plasma Lactic Acid Joshua 1.4 (0.7-2.0) mmol/L Calcium 10.0 (8.4-10.2) mg/dL Total Bilirubin 0.4 (0.2-1.3) mg/dL AST 49 (17-59) U/L ALT 39 (4-49) U/L Alkaline Phosphatase 79 (38-126) U/L Total Protein 7.7 (6.3-8.2) g/dL Albumin 4.6 (3.5-5.0) g/dL Lipase 254 (23-300) U/L Serum Alcohol 250 H* mg/dL Disposition Clinical Impression: Alcohol intoxication Disposition: HOME SELF-CARE Condition: Good Instructions (If sedation given, give patient instructions): Alcohol Into xication (ED) Is patient prescribed a controlled substance at d/c from ED?: No Referrals: Alonzo Cabrera MD [Primary Care Provider] - 1-2 days Time of Disposition: 01:30
[2024-07-22 22:08] LABS: Basophils # (A) 0.14 10*3/uL (0.00-0.10); Basophils % (A) 1.4 %; Eosinophils # (A) 0.23 10*3/uL (0.04-0.35); Eosinophils % (A) 2.3 %; HCT 40.2 % (39.6-50.0); HGB 14.2 g/dL (13.0-17.0); Lymphocytes # (A) 4.65 10*3/uL (0.90-5.00); Lymphocytes % (A) 47.5 %; MCH 33.5 pg (27.0-32.0); MCHC 35.3 g/dL (32.0-37.0); MCV 94.8 fL (80.0-97.0); Mean Platelet Volume 9.5 fL (9.5-12.2); Monocytes # (A) 0.95 10*3/uL (0.20-1.00); Monocytes % (A) 9.7 %; Neutrophils % (A) 38.9 %; Platelet Count 298 10*3/uL (140-440); RBC 4.24 10*6/uL (4.40-5.60); RDW 13.1 % (11.5-14.5); WBC 9.79 10*3/uL (4.50-10.00)
[2024-07-22 22:24] LABS: ALT 39 U/L (4-49); AST 49 U/L (17-59); African American GFR (CKD) >90 (>60 ml/min/1.73 sqM); Albumin 4.6 g/dL (3.5-5.0); Alkaline Phosphatase 79 U/L (38-126); Anion Gap 12 mmol/L; Blood Urea Nitrogen 5 mg/dL (9-20); Carbon Dioxide 28 mmol/L (22-30); Chloride 96 mmol/L (98-107); Glucose 92 mg/dL (74-99); Lipase 254 U/L (23-300); Non-African American GFR(CKD) >90 (>60 ml/min/1.73 sqM); Potassium 4.1 mmol/L (3.5-5.1); Sodium 136 mmol/L (137-145); Total Bilirubin 0.4 mg/dL (0.2-1.3); Total Protein 7.7 g/dL (6.3-8.2)
[2024-07-22 22:29] LABS: Alcohol 250 mg/dL
[2024-07-23 01:42] VITALS: BP 101/65; PULSE 100
== END 2024-07-23 01:43 | disposition home or self-care (01) ==
LOC: EC 20:56
DX: F10.129 Alcohol abuse with intoxication, unspecified (principal); F17.200 Nicotine dependence, unspecified, uncomplicated; Z88.8 Allergy status to other drugs, medicaments and biological substances; Y90.8 Blood alcohol level of 240 mg/100 ml or more
CPT/HCPCS: 36415; 80053; 83605; 83690; 85025; 99284; G0480; 80320

== ENCOUNTER 2024-09-01 21:43 | Emergency (ER) | payer OTHER ==
--- NOTE | 2024-09-01 22:26 | ED ---
Fall HPI - General Chief Complaint: Fall Stated Complaint: Fall Time Seen by Provider: 09/01/24 22:23 Source: patient, EMS, RN notes reviewed Mode of arrival: EMS - History of Present Illness Initial Comments: 59-year-old male with history of chronic alcohol abuse presenting via EMS for fall with head injury. States he was intoxicated resulting in a trip and fall outside. States he did hit his head and lose consciousness. Denies blood thinners. Denies other injuries. Endorses mild headache, denies vision changes, nausea, vomiting, chest pain, abdominal pain, shortness of breath. - Related Data Home Medications Medication Instructions Recorded Confirmed Aspirin EC [Ecotrin Low Dose] 81 mg PO DAILY 05/18/20 01/30/24 Budesonide/Formoterol Fumarate 2 puff INHALATION RT-BID 08/29/23 01/30/24 [Symbicort 160-4.5 Mcg Inhaler] Albuterol Sulfate [Albuterol 2 puff PO RT-Q6H PRN 01/30/24 01/30/24 Sulfate Hfa] Ergocalciferol (Vitamin D2) 1,250 mcg PO QMONTHLY 01/30/24 01/30/24 [Drisdol (50,000 Iu)] Previous Rx's Medication Instructions Recorded Atorvastatin [Lipitor] 40 mg PO DAILY #30 tablet 01/29/24 Thiothixene [Navane] 2 mg PO BID #60 cap 01/29/24 Trihexyphenidyl [Artane] 2 mg PO BID #60 tab 01/29/24 lisinopriL [Zestril] 20 mg PO DAILY #30 tab 01/29/24 Levofloxacin [Levaquin] 750 mg PO DAILY 1 Days #5 tab 02/06/24 Allergies Allergy/AdvReac Type Severity Reaction Status Date / Time haloperidol [From Haldol] Allergy Anaphylaxis Verified 07/18/24 22:00 Review of Systems ROS Statement: Those systems with pertinent positive or pertinent negative responses have been documented in the HPI. ROS Other: All systems not noted in ROS Statement are negative. Past Medical History Past Medical History: Hyperlipidemia, Hypertension Additional Past Medical History / Comment(s): anxiety and bipolar disorder, etoh since 2012 History of Any Multi-Drug Resistant Organisms: None Reported Past Surgical History: No Surgical Hx Reported Past Anesthesia/Blood Transfusion Reactions: No Reported Reaction Past Psychological History: Anxiety, Bipolar, Depression Smoking Status: Current every day smoker Past Alcohol Use History: Daily, Heavy Past Drug Use History: None Reported - Past Family History Mother Family Medical History: Myocardial Infarction ([place]) Additional Family Medical History / Comment(s): at age 54 Father History Unknown: Yes Family Medical History: Pneumonia Additional Family Medical History / Comment(s): at 71 from pneumonia General Exam General appearance: alert, in no apparent distress Head exam: Present: normocephalic. Absent: atraumatic (Small abrasion to right forehead), normal inspection Eye exam: Present: normal appearance, PERRL, EOMI. Absent: scleral icterus, conjunctival injection, periorbital swelling ENT exam: Present: normal exam, mucous membranes moist Neck exam: Present: other (C-collar in place). Absent: tenderness, meningismus, lymphadenopathy Respiratory exam: Present: normal lung sounds bilaterally. Absent: respiratory distress, wheezes, rales, rhonchi, stridor Cardiovascular Exam: Present: regular rate, normal rhythm, normal heart sounds. Absent: systolic murmur, diastolic murmur, rubs, gallop, clicks GI/Abdominal exam: Present: soft, normal bowel sounds. Absent: distended, tenderness, guarding, rebound, rigid Neurological exam: Present: alert, oriented X3, CN II-XII intact Skin exam: Present: warm, dry, intact, normal color. Absent: rash Course Vital Signs 09/01/24 09/02/24 21:49 07:56 Temperature 98.0 F 98.2 F Pulse Rate 102 H 93 Respiratory 18 16 Rate Blood Pressure 107/70 99/66 O2 Sat by Pulse 96 96 Oximetry Medical Decision Making - Medical Decision Making Was pt. sent in by a medical professional or institution (, PA, SUPERVISOR HARD CANDY, urgent care, hospital, or alf...) When possible be specific @ -No Did you speak to anyone other than the patient for history (EMS, parent, family, police, friend...)? What history was obtained from this source @ -No Did you review nursing and triage notes (agree or disagree)? Why? @ -I reviewed and agree with nursing and triage notes Were old charts reviewed (outside hosp., previous admission, EMS record, old EKG, old radiological studies, urgent care reports/EKG's, alf records)? Report findings @ -No old charts were reviewed Differential Diagnosis (chest pain, altered mental status, abdominal pain women, abdominal pain men, vaginal bleeding, weakness, fever, dyspnea, syncope, headache, dizziness, GI bleed, back pain, seizure, CVA, palpatations, mental health, musculoskeletal)? @ -Differential Musculoskeletal Skull fracture, intracranial hemorrhage, concussion, muscular strain, contusion, ligament sprain, fracture, arthritis, septic arthritis, bursitis, cellulitis, muscle spasm, nerve compression, DVT, arterial occlusion, herpes zoster, electrolyte abnormality, tumor.... This is not meant to be in all inclusive list EKG interpreted by me (3pts min.). @ -None X-rays interpreted by me (1pt min.). @ -None done CT interpreted by me (1pt min.). @-CT brain and C-spine negative for acute process- U/S interpreted by me (1pt. min.). @ -None done What testing was considered but not performed or refused? (CT, X-rays, U/S, labs)? Why? @ -None What meds were considered but not given or refused? Why? @ -None Did you discuss the management of the patient with other professionals (professionals i.e. , PA, SUPERVISOR HARD CANDY, lab, RT, psych nurse, group social worker, admiralty lawyer, teacher, employment security officer, casey saw operator)? Give summary @ -No Was smoking cessation discussed for >3mins.? @ -No Was critical care preformed (if so, how long)? @ -No Were there social determinants of health that impacted care today? How? (Homelessness, low income, unemployed, alcoholism, drug addiction, transportation, low edu. Level, literacy, decrease access to med. care, [facility], rehab)? @ -No Was there de-escalation of care discussed even if they declined (Discuss DNR or withdrawal of care, Hospice)? DNR status @ -No What co-morbidities impacted this encounter? (DM, HTN, Smoking, COPD, CAD, Cancer, CVA, ARF, Chemo, Hep., AIDS, mental health diagnosis, sleep apnea, morbid obesity)? @ -None Was patient admitted / discharged? Hospital course, mention meds given and route, prescriptions, significant lab abnormalities, going to OR and other pertinent info. @ -Discharge. 59-year-old male with history of chronic alcohol use disorder presenting for mechanical fall with head injury due to alcohol intoxication. CT brain and C-spine negative for acute process. No other injuries. Patient's serum alcohol is elevated however patient was able to receive a ride home from a friend. Appropriate return precautions and follow-up care discussed. Case was discussed with my ED attending Dr. Keane. Undiagnosed new problem with uncertain prognosis? @ -No Drug Therapy requiring intensive monitoring for toxicity (Heparin, Nitro, Insulin, Cardizem)? @ -No Were any procedures done? @ -No Diagnosis/symptom? @ -Acute head injury Acute, or Chronic, or Acute on Chronic? @ -Acute Uncomplicated (without systemic symptoms) or Complicated (systemic symptoms)? @ -Complicated Side effects of treatment? @ -No Exacerbation, Progression, or Severe Exacerbation? @ -No Poses a threat to life or bodily function? How? (Chest pain, [place], [place], pneumonia, PE, COPD, DKA, ARF, appy, cholecystitis, CVA, Diverticulitis, Homicidal, Suicidal, threat to staff... and all critical care pts) @ -Not at this time - Lab Data Lab Results 09/01/24 Range/Units 22:31 Serum Alcohol 261 H* mg/dL Disposition Clinical Impression: Head injury due to trauma Disposition: HOME SELF-CARE Condition: Stable Additional Instructions: Please return to the Emergency Department if symptoms worsen or any other concerns. Is patient prescribed a controlled substance at d/c from ED?: No Referrals: Alonzo Cabrera MD [Primary Care Provider] - 1-2 days Time of Disposition: 00:50
--- NOTE | 2024-09-02 00:01 | CT ---
EXAM: CT Head Without Intravenous Contrast CLINICAL HISTORY: ITS.REASON CT Reason: pain TECHNIQUE: Axial computed tomography images of the head/brain without intravenous contrast. CTDI is 45.2 mGy and DLP is 1061 mGy-cm. This CT exam was performed using one or more of the following dose reduction techniques: automated exposure control, adjustment of the mA and/or kV according to patient size, and/or use of iterative reconstruction technique. COMPARISON: No relevant prior studies available. FINDINGS: No acute intracranial hemorrhage. No midline shift or mass effect. The territorial dominique-white matter differentiation is maintained throughout. Age-related cerebral volume loss. Periventricular and subcortical white matter hypoattenuation, consistent with chronic microangiopathy. The visualized orbits appear grossly unremarkable. The calvarium is intact. Right periorbital soft tissue swelling. The visualized paranasal sinuses and mastoid air cells are grossly clear. IMPRESSION: 1. No acute intracranial hemorrhage, midline shift, or mass effect. 2. Right periorbital soft tissue swelling. 3. Suspected, old fracture of the right maxillary sinus anterior wall. EXAM: CT Cervical Spine Without Intravenous Contrast CLINICAL HISTORY: ITS.REASON CT Reason: pain TECHNIQUE: Axial computed tomography images of the cervical spine without intravenous contrast. This CT exam was performed using one or more of the following dose reduction techniques: automated exposure control, adjustment of the mA and/or kV according to patient size, and/or use of iterative reconstruction technique. COMPARISON: No relevant prior studies available. FINDINGS: The vertebral body heights are maintained. The craniocervical junction is intact. The atlanto-dens interval is maintained. The dens is intact. There is no spondylolisthesis. Multilevel cervical spondylosis and degenerative disc disease. Straightening of the cervical lordosis. IMPRESSION: No acute fracture or subluxation of the cervical spine.
[2024-09-02 07:58] VITALS: BP 99/66; PULSE 93; RESP 16; TEMP 98.2
== END 2024-09-02 08:40 | disposition home or self-care (01) ==
LOC: EC 21:43
DX: S09.90XA Unspecified injury of head, initial encounter (principal); F17.200 Nicotine dependence, unspecified, uncomplicated; Z88.8 Allergy status to other drugs, medicaments and biological substances; W01.0XXA Fall on same level from slipping, tripping and stumbling without subsequent striking against object, initial encounter
CPT/HCPCS: 36415; 72125; 70450; 99284; G0480; 80320

== ENCOUNTER 2024-09-05 02:48 | Emergency (ER) | payer OTHER ==
--- NOTE | 2024-09-05 03:35 | ED ---
General Adult HPI - General Chief complaint: Recheck/Abnormal Lab/Rx Stated complaint: Mental Health Time Seen by Provider: 09/05/24 03:12 Source: patient, EMS Mode of arrival: EMS Limitations: no limitations - History of Present Illness Initial comments: This patient is a 59-year-old man who is here to have medication refill. The patient stated that he was out of 2 of his antipsychotic medicines. The patient states that he was hoping to have refill before his condition worsened. Patient currently denying homicidal or suicidal ideation. -: days(s) Severity scale (1-10): 0 Consistency: constant Improves with: none Worsens with: none Associated Symptoms: denies other symptoms - Related Data Home Medications Medication Instructions Recorded Confirmed Aspirin EC [Ecotrin Low Dose] 81 mg PO DAILY 05/18/20 01/30/24 Budesonide/Formoterol Fumarate 2 puff INHALATION RT-BID 08/29/23 01/30/24 [Symbicort 160-4.5 Mcg Inhaler] Albuterol Sulfate [Albuterol 2 puff PO RT-Q6H PRN 01/30/24 01/30/24 Sulfate Hfa] Ergocalciferol (Vitamin D2) 1,250 mcg PO QMONTHLY 01/30/24 01/30/24 [Drisdol (50,000 Iu)] Previous Rx's Medication Instructions Recorded Atorvastatin [Lipitor] 40 mg PO DAILY #30 tablet 01/29/24 Thiothixene [Navane] 2 mg PO BID #60 cap 01/29/24 Trihexyphenidyl [Artane] 2 mg PO BID #60 tab 01/29/24 lisinopriL [Zestril] 20 mg PO DAILY #30 tab 01/29/24 Levofloxacin [Levaquin] 750 mg PO DAILY 1 Days #5 tab 02/06/24 Thiothixene [Navane] 2 mg PO BID #20 cap 09/05/24 Trihexyphenidyl [Artane] 2 mg PO BID #20 tab 09/05/24 Allergies Allergy/AdvReac Type Severity Reaction Status Date / Time haloperidol [From Haldol] Allergy Anaphylaxis Verified 07/18/24 22:00 Review of Systems ROS Statement: Those systems with pertinent positive or pertinent negative responses have been documented in the HPI. ROS Other: All systems not noted in ROS Statement are negative. Constitutional: Denies: fever, chills, weakness Eyes: Denies: vision change Respiratory: Denies: cough, dyspnea Cardiovascular: Denies: chest pain, palpitations Gastrointestinal: Denies: abdominal pain, nausea, vomiting Neurological: Denies: headache Psychiatric: Denies: anxiety, homicidal thoughts, suicidal thoughts Past Medical History Past Medical History: Hyperlipidemia, Hypertension Additional Past Medical History / Comment(s): anxiety and bipolar disorder, etoh since 2012 History of Any Multi-Drug Resistant Organisms: None Reported Past Surgical History: No Surgical Hx Reported Past Anesthesia/Blood Transfusion Reactions: No Reported Reaction Past Psychological History: Anxiety, Bipolar, Depression, Schizophrenia Smoking Status: Current every day smoker Past Alcohol Use History: Daily, Heavy Past Drug Use History: None Reported - Past Family History Mother Family Medical History: Myocardial Infarction (AR) Additional Family Medical History / Comment(s): at age 54 Father History Unknown: Yes Family Medical History: Pneumonia Additional Family Medical History / Comment(s): at 71 from pneumonia General Exam Limitations: no limitations General appearance: alert, in no apparent distress Head exam: Present: atraumatic, normocephalic Eye exam: Present: normal appearance. Absent: scleral icterus, conjunctival injection Neck exam: Present: normal inspection Respiratory exam: Present: normal lung sounds bilaterally. Absent: respiratory distress, wheezes, rales, rhonchi, stridor, accessory muscle use Cardiovascular Exam: Present: regular rate, normal rhythm, normal heart sounds Neurological exam: Present: alert Psychiatric exam: Absent: depressed, agitated, manic, homicidal ideation, suicidal ideation Skin exam: Present: warm, dry, intact, normal color. Absent: rash Course Vital Signs 09/05/24 09/05/24 02:51 03:55 Temperature 97.8 F 97.7 F Pulse Rate 81 89 Respiratory 16 17 Rate Blood Pressure 100/75 131/81 O2 Sat by Pulse 97 100 Oximetry Medical Decision Making - Medical Decision Making Was pt. sent in by a medical professional or institution (, PA, MILL [employer]ER, urgent care, hospital, or fpc...) When possible be specific @ -[No] Did you speak to anyone other than the patient for history (EMS, parent, family, police, friend...)? What history was obtained from this source @ -[No] Did you review nursing and triage notes (agree or disagree)? Why? @ -[I reviewed and agree with nursing and triage notes] Were old charts reviewed (outside hosp., previous admission, EMS record, old EKG, old radiological studies, urgent care reports/EKG's, fpc records)? Report findings @ -[No old charts were reviewed] Differential Diagnosis (chest pain, altered mental status, abdominal pain women, abdominal pain men, vaginal bleeding, weakness, fever, dyspnea, syncope, headache, dizziness, GI bleed, back pain, seizure, CVA, palpatations, mental health, musculoskeletal)? @ -[Differential Mental Health Depression, anxiety, bipolar, psychosis, schizophrenia, borderline personality, situational depression, adjustment disorder, behavioral disorder, brain tumor, malingering, substance abuse, encephalopathy, medication reaction, dementia, hypothyroidism, degenerative neurologic disorder, lupus.... This is not meant to be all-inclusive list EKG interpreted by me (3pts min.). @ -[As above] X-rays interpreted by me (1pt min.). @ -[None done] CT interpreted by me (1pt min.). @ -[None done] U/S interpreted by me (1pt. min.). @ -[None done] What testing was considered but not performed or refused? (CT, X-rays, U/S, labs)? Why? @ -[None] What meds were considered but not given or refused? Why? @ -[None] Did you discuss the management of the patient with other professionals (professionals i.e. , PA, M[employer]ER, lab, RT, psych nurse, pediatric social worker, final inspector shuttle, teacher, audit officer, field case manager)? Give summary @ -[No] Was smoking cessation discussed for >3mins.? @ -[No] Was critical care preformed (if so, how long)? @ -[No] Were there social determinants of health that impacted care today? How? (Homelessness, low income, unemployed, alcoholism, drug addiction, transportation, low edu. Level, literacy, decrease access to med. care, care home, rehab)? @ -[No] Was there de-escalation of care discussed even if they declined (Discuss DNR or withdrawal of care, Hospice)? DNR status @ -[No] What co-morbidities impacted this encounter? (DM, HTN, Smoking, COPD, CAD, Cancer, CVA, ARF, Chemo, Hep., AIDS, mental health diagnosis, sleep apnea, morbid obesity)? @ -[None] Was patient admitted / discharged? Hospital course, mention meds given and route, prescriptions, significant lab abnormalities, going to OR and other pertinent info. @ -[Patient is a 59-year-old man with history of schizophrenia who presents to have medication refill. The patient denying need for admission at this time. Prescriptions refilled and patient to have close follow-up Undiagnosed new problem with uncertain prognosis? @ -[No] Drug Therapy requiring intensive monitoring for toxicity (Heparin, Nitro, Insulin, Cardizem)? @ -[No] Were any procedures done? @ -[No] Diagnosis/symptom? @ -[Medication refill Acute, or Chronic, or Acute on Chronic? @ -[ Uncomplicated (without systemic symptoms) or Complicated (systemic symptoms)? @ -[ Side effects of treatment? @ -[No] Exacerbation, Progression, or Severe Exacerbation? @ -[No] Poses a threat to life or bodily function? How? (Chest pain, [place], AR, pneumonia, PE, COPD, DKA, ARF, appy, cholecystitis, CVA, Diverticulitis, Homicidal, Suicidal, threat to staff... and all critical care pts) @ -[No] All treatments are based on ideal body weight as in ED triage Disposition Clinical Impression: Encounter for medication refill Disposition: HOME SELF-CARE Condition: Fair Instructions (If sedation given, give patient instructions): Medicine Refill (ED) Prescriptions: Trihexyphenidyl [Artane] 2 mg PO BID #20 tab Thiothixene [Navane] 2 mg PO BID #20 cap Is patient prescribed a controlled substance at d/c from ED?: No Referrals: Alonzo Cabrera MD [Primary Care Provider] - 1-2 days
[2024-09-05] MEDS: TRIHEXYPHENIDYL 2 MG TAB PO ONE (03:51)
[2024-09-05] MEDS: THIOTHIXENE 1 MG CAP PO STA (03:51)
[2024-09-05 03:57] VITALS: BP 131/81; PULSE 89; RESP 17; TEMP 97.7
== END 2024-09-05 04:09 | disposition home or self-care (01) ==
LOC: EC 02:48
DX: Z76.0 Encounter for issue of repeat prescription (principal); Z88.8 Allergy status to other drugs, medicaments and biological substances; F17.200 Nicotine dependence, unspecified, uncomplicated
CPT/HCPCS: 99282